=== PATIENT | male | born 1950 | race Caucasian/White ===

== ENCOUNTER 2019-10-18 10:08 | Inpatient (IN) | payer OTHER, MEDICAID, SELFPAY ==
[~2019-10-18] VITALS: Ht 177.8 cm; Wt 85.7 kg
[2019-10-18 10:08] VITALS: BP_SYST 122
[2019-10-18] MEDS ORDERED: NACL 0.9% 2,100 ML IV ONE (10:21)
[2019-10-18] MEDS ORDERED: AZITHROMYCIN 500 MG in NS 250 ML IV ONE (10:30)
[2019-10-18] MEDS ORDERED: DEXAMETHASONE SOD PHOSPHATE 10 MG/ML VIAL IVP ONE (10:30)
[2019-10-18] MEDS ORDERED: VANCOMYCIN HCL 1,000 MG in NS 250 ML IV ONE (10:30)
[2019-10-18] MEDS ORDERED: cefTRIAXone 1 GM IVPB PREMIX 50 ML IV ONE (10:30)
[2019-10-18] MEDS ORDERED: VANCOMYCIN HCL 1000 MG/VIAL IV ONE (11:02)
[2019-10-18 11:03] LABS: BASOPHILS % (AUTO) 0.4 % (0.0-2.0); HEMATOCRIT 47.6 % (36-54); HEMOGLOBIN 15.6 g/dL (14.0-18.0); LYMPHOCYTES # (AUTO) 0.6 K/uL (1.0-5.5); LYMPHOCYTES % (AUTO) 10.9 % (20.5-51.5); MEAN CORPUSCULAR HEMOGLOBIN 30 pg (27-31); MEAN CORPUSCULAR HGB CONC 33 % (32-36); MEAN CORPUSCULAR VOLUME 90 fL (79.0-98.0); MONOCYTES # (AUTO) 0.7 K/uL (0.0-1.0); MONOCYTES % (AUTO) 12.8 % (1.7-9.3); NEUTROPHILS # (AUTO) 4.1 K/uL (1.8-7.7); NEUTROPHILS % (AUTO) 75.9 % (40.0-70.0); PLATELET COUNT (AUTO) 116 K/uL (130-430); RED BLOOD CELL COUNT(AUTO) 5.27 MIL/uL (4.2-6.2); RED CELL DISTRIBUTION WIDTH 15.2 % (9.0-15.0); WHITE BLOOD COUNT (AUTO) 5.4 K/uL (4.8-10.8)
[2019-10-18] MEDS ORDERED: AZITHROMYCIN 500 MG/VIAL (ZITHROMAX) IV ONE (11:03)
[2019-10-18 11:09] LABS: CALCIUM 9.3 mg/dL (8.4-11.0); CREATININE 3.04 mg/dL (0.55-1.30); POTASSIUM 4.1 mmol/L (3.5-5.1)
[2019-10-18 11:24] LABS: ALBUMIN 2.8 g/dL (3.4-4.8); TOTAL BILIRUBIN 0.6 mg/dL (0.0-1.0)
[2019-10-18 11:47] LABS: BILIRUBIN,URINE NEGATIVE (NEGATIVE); BLOOD, URINE NEGATIVE (NEGATIVE); CLARITY/URINE SL CLOUDY (CLEAR); COLOR,URINE YELLOW (YELLOW); GLUCOSE,URINE NEGATIVE (NEGATIVE); KETONES,URINE NEGATIVE (NEGATIVE); LEUKOCYTE ESTERASE ,URINE NEGATIVE (NEGATIVE); NITRITE, URINE NEGATIVE (NEGATIVE); PROTEIN URINE 2+ (NEGATIVE); UROBILINOGEN,URINE 0.2 (0.2-1.0)
[2019-10-18 12:01] LABS: BACTERIA,URINE None Seen /HPF (None Seen); RBC,URINE 0-3 /HPF (0-3); WBC,URINE 0-3 /HPF (0-3)
[2019-10-18 12:02] LABS: CALCIUM OXALATE CRYSTALS,UR None Seen /HPF (None Seen); CALCIUM PHOSPHATE CRYSTALS,UR None Seen /HPF (None Seen); TRICHOMONAS,URINE None Seen /HPF (None Seen); YEAST,URINE None Seen /HPF (None Seen)
[2019-10-18] MEDS ORDERED: ENOXAPARIN SODIUM 80 MG/0.8 ML SYRINGE SUBCUT ONE (13:15)
[2019-10-18] MEDS ORDERED: LORazepam 2 MG/ML VIAL ONE (14:07)
[2019-10-18] MEDS ORDERED: LORazepam 2 MG/ML VIAL IVP ONE (15:00)
[2019-10-18] MEDS: NACL 0.9% 1,000 ML IV SCH (17:03)
[2019-10-18] MEDS ORDERED: DDA.1 PO (17:07)
[2019-10-18] MEDS ORDERED: TERA5CAP4 PO (17:07)
[2019-10-18] MEDS ORDERED: LOSA50TA3 PO (17:07)
[2019-10-18] MEDS ORDERED: QUET50TA PO (17:07)
[2019-10-18] MEDS ORDERED: DIVA-74 PO (17:07)
[2019-10-18] MEDS ORDERED: HYDR12.585 PO (17:07)
[2019-10-18] MEDS ORDERED: SER100 PO (17:07)
[2019-10-18] MEDS ORDERED: DIVA500T2 PO (17:07)
[2019-10-18] MEDS ORDERED: FINA5TAB3 PO (17:07)
[2019-10-18] MEDS ORDERED: NOR10 PO (17:07)
[2019-10-18] MEDS ORDERED: QUET300T2 PO (17:07)
[2019-10-18] MEDS ORDERED: ACETAMINOPHEN 650 MG SUPP.RECT RC PRN ×2 (17:15→17:30)
[2019-10-18] MEDS ORDERED: LORazepam 2 MG/ML VIAL IM PRN (17:30)
[2019-10-18] MEDS: PIPERACILLIN/TAZO 2.25G/DEX-IS 50 ML IV SCH (18:00)
[2019-10-18] MEDS: FAMOTIDINE PF 20 MG/2 ML VIAL IVP SCH (19:20)
[2019-10-18] MEDS ORDERED: ALBUTEROL MDI INHALATION 8 GM INH INH SCH (21:00)
[2019-10-19] MEDS: NACL 0.9% 1,000 ML IV SCH (02:54)
[2019-10-19 04:34] LABS: BASOPHILS % (AUTO) 0.4 % (0.0-2.0); HEMATOCRIT 45.5 % (36-54); HEMOGLOBIN 14.7 g/dL (14.0-18.0); LYMPHOCYTES # (AUTO) 0.7 K/uL (1.0-5.5); LYMPHOCYTES % (AUTO) 11.8 % (20.5-51.5); MEAN CORPUSCULAR HEMOGLOBIN 30 pg (27-31); MEAN CORPUSCULAR HGB CONC 32 % (32-36); MEAN CORPUSCULAR VOLUME 92 fL (79.0-98.0); MONOCYTES # (AUTO) 0.7 K/uL (0.0-1.0); MONOCYTES % (AUTO) 12.2 % (1.7-9.3); NEUTROPHILS # (AUTO) 4.2 K/uL (1.8-7.7); NEUTROPHILS % (AUTO) 75.6 % (40.0-70.0); PLATELET COUNT (AUTO) 112 K/uL (130-430); RED BLOOD CELL COUNT(AUTO) 4.96 MIL/uL (4.2-6.2); RED CELL DISTRIBUTION WIDTH 15.3 % (9.0-15.0); WHITE BLOOD COUNT (AUTO) 5.6 K/uL (4.8-10.8)
[2019-10-19 05:05] LABS: ALBUMIN 2.4 g/dL (3.4-4.8); C-REACTIVE PROTEIN QUANT 7.8 mg/dL (0-0.5); CALCIUM 8.9 mg/dL (8.4-11.0); CREATININE 2.93 mg/dL (0.55-1.30); POTASSIUM 4.4 mmol/L (3.5-5.1); THYROID STIMULATING HORMONE 0.8 uIu/mL (0.34-4.82); TOTAL BILIRUBIN 0.4 mg/dL (0.0-1.0)
[2019-10-19] MEDS: PIPERACILLIN/TAZO 2.25G/DEX-IS 50 ML IV SCH ×4 (05:55→20:00)
[2019-10-19] MEDS ORDERED: PIPERACILLIN/TAZOBACTAM 3.375 GM/VIAL (ZOSYN) IV ONE (06:25)
[2019-10-19] MEDS ORDERED: LORazepam 2 MG/ML VIAL ONE (06:41)
[2019-10-19] MEDS ORDERED: 0.45% NACL 1,000 ML IV SCH (07:12)
[2019-10-19] MEDS ORDERED: DEXAMETHASONE SOD PHOSPHATE 4 MG/ML VIAL IVP SCH (09:00)
[2019-10-19] MEDS: AZITHROMYCIN 500 MG in NS 250 ML IV SCH (12:37)
[2019-10-19] MEDS ORDERED: D5W 1,000 ML IV SCH (15:58)
[2019-10-19] MEDS ORDERED: D5W 1,000 ML IV PRN (16:45)
[2019-10-19] MEDS ORDERED: GLUCOSE 15 GM GEL (in 37.5 GM TUBE) PO PRN (16:45)
[2019-10-19] MEDS ORDERED: DEXTROSE 50%-WATER 50 ML DISP.SYRIN IVP PRN (16:45)
[2019-10-19] MEDS: D5W 1,000 ML IV SCH (20:00)
[2019-10-19] MEDS ORDERED: PROPOFOL DRIP 100 ML IV ONE (20:03)
[2019-10-19] MEDS: FAMOTIDINE PF 20 MG/2 ML VIAL IVP SCH (20:30)
[2019-10-19 21:40] VITALS: BP_SYST 138
[2019-10-19 21:43] VITALS: BP_SYST 138
[2019-10-19 22:00] VITALS: BP_SYST 128; BP_SYST 136
[2019-10-19] MEDS: DESMOPRESSIN ACETATE 4 MCG/ML AMP IVP SCH (22:29)
[2019-10-19] MEDS ORDERED: DESMOPRESSIN ACETATE 4 MCG/ML AMP ONE (22:32)
[2019-10-19 23:00] VITALS: BP_SYST 136
[2019-10-19 23:13] VITALS: BP_SYST 119
[2019-10-20] VITALS (33 sets, daily range): BP systolic 92–130
[2019-10-20] MEDS: PIPERACILLIN/TAZO 2.25G/DEX-IS 50 ML IV SCH ×4 (00:01→17:40)
[2019-10-20] MEDS: INSULIN LISPRO SLIDING SCALE 100 UNITS/ML VIAL (humaLOG) SUBCUT PRN ×2 (00:43→17:38)
[2019-10-20] MEDS: D5W 1,000 ML IV SCH ×3 (03:38→21:56)
[2019-10-20 06:37] LABS: BASOPHILS % (AUTO) 0.1 % (0.0-2.0); HEMATOCRIT 42.3 % (36-54); HEMOGLOBIN 13.6 g/dL (14.0-18.0); LYMPHOCYTES # (AUTO) 0.8 K/uL (1.0-5.5); LYMPHOCYTES % (AUTO) 11.2 % (20.5-51.5); MEAN CORPUSCULAR HEMOGLOBIN 30 pg (27-31); MEAN CORPUSCULAR HGB CONC 32 % (32-36); MEAN CORPUSCULAR VOLUME 92 fL (79.0-98.0); MONOCYTES # (AUTO) 0.5 K/uL (0.0-1.0); MONOCYTES % (AUTO) 6.7 % (1.7-9.3); NEUTROPHILS # (AUTO) 5.5 K/uL (1.8-7.7); PLATELET COUNT (AUTO) 138 K/uL (130-430); RED BLOOD CELL COUNT(AUTO) 4.61 MIL/uL (4.2-6.2); RED CELL DISTRIBUTION WIDTH 15.7 % (9.0-15.0); WHITE BLOOD COUNT (AUTO) 6.8 K/uL (4.8-10.8)
[2019-10-20 06:51] LABS: ALBUMIN 2.1 g/dL (3.4-4.8); CREATININE 3.53 mg/dL (0.55-1.30); PHOSPHORUS 3.9 mg/dL (2.7-4.5); TOTAL BILIRUBIN 0.8 mg/dL (0.0-1.0)
[2019-10-20 07:25] LABS: POTASSIUM 4.1 mmol/L (3.5-5.1)
[2019-10-20 08:19] LABS: C-REACTIVE PROTEIN QUANT 13.8 mg/dL (0-0.5)
[2019-10-20] MEDS: DEXAMETHASONE SOD PHOSPHATE 10 MG/ML VIAL IVP SCH (08:41)
[2019-10-20] MEDS: AZITHROMYCIN 500 MG in NS 250 ML IV SCH (08:41)
[2019-10-20] MEDS: DESMOPRESSIN ACETATE 4 MCG/ML AMP IVP SCH ×2 (08:54→21:55)
[2019-10-20 09:01] LABS: ERYTHROCYTE SEDIMENTATION RATE 66 MM/HR (0-15)
[2019-10-20] MEDS ORDERED: HEPARIN SODIUM,PORCINE 5000 UNITS/ML VIAL SUBCUT ONE (09:45)
[2019-10-20] MEDS ORDERED: ROCURONIUM BROMIDE 10 MG/ML (ZEMURON) IV ONE (09:54)
[2019-10-20] MEDS ORDERED: ETOMIDATE 20 MG/ 10 ML VIAL (AMIDATE) IVP ONE (09:54)
[2019-10-20] MEDS: PROPOFOL DRIP 100 ML IV PRN (14:54)
[2019-10-20] MEDS: FAMOTIDINE PF 20 MG/2 ML VIAL IVP SCH (17:40)
[2019-10-20] MEDS ORDERED: HYDROXYCHLOROQUINE SULFATE 200 MG TABLET PO ONE (18:00)
[2019-10-20] MEDS: HEPARIN SODIUM,PORCINE 5000 UNITS/ML VIAL SUBCUT SCH (22:25)
[2019-10-21] VITALS (33 sets, daily range): BP systolic 91–149
[2019-10-21] MEDS: PIPERACILLIN/TAZO 2.25G/DEX-IS 50 ML IV SCH ×5 (01:30→23:49)
[2019-10-21] MEDS: INSULIN LISPRO SLIDING SCALE 100 UNITS/ML VIAL (humaLOG) SUBCUT PRN ×4 (01:35→23:55)
[2019-10-21 06:44] LABS: BASOPHILS % (AUTO) 0.2 % (0.0-2.0); HEMATOCRIT 44.1 % (36-54); HEMOGLOBIN 14.6 g/dL (14.0-18.0); LYMPHOCYTES # (AUTO) 0.9 K/uL (1.0-5.5); LYMPHOCYTES % (AUTO) 13.1 % (20.5-51.5); MEAN CORPUSCULAR HEMOGLOBIN 30 pg (27-31); MEAN CORPUSCULAR HGB CONC 33 % (32-36); MEAN CORPUSCULAR VOLUME 91 fL (79.0-98.0); MONOCYTES # (AUTO) 0.4 K/uL (0.0-1.0); MONOCYTES % (AUTO) 5.9 % (1.7-9.3); NEUTROPHILS # (AUTO) 5.2 K/uL (1.8-7.7); NEUTROPHILS % (AUTO) 80.8 % (40.0-70.0); PLATELET COUNT (AUTO) 148 K/uL (130-430); RED BLOOD CELL COUNT(AUTO) 4.84 MIL/uL (4.2-6.2); RED CELL DISTRIBUTION WIDTH 15.6 % (9.0-15.0); WHITE BLOOD COUNT (AUTO) 6.5 K/uL (4.8-10.8)
[2019-10-21] MEDS: D5W 1,000 ML IV SCH ×3 (07:00→22:05)
[2019-10-21 07:01] LABS: CALCIUM 9.3 mg/dL (8.4-11.0); CREATININE 3.08 mg/dL (0.55-1.30); POTASSIUM 3.5 mmol/L (3.5-5.1); TOTAL BILIRUBIN 0.8 mg/dL (0.0-1.0)
[2019-10-21 07:21] LABS: C-REACTIVE PROTEIN QUANT 16.9 mg/dL (0-0.5)
[2019-10-21] MEDS: CHOLECALCIFEROL (VITAMIN D3) 2,000 UNIT TABLET PO SCH (08:01)
[2019-10-21] MEDS: HEPARIN SODIUM,PORCINE 5000 UNITS/ML VIAL SUBCUT SCH ×2 (08:01→22:08)
[2019-10-21] MEDS: ASCORBIC ACID 500 MG TABLET PO SCH (08:01)
[2019-10-21] MEDS: DESMOPRESSIN ACETATE 4 MCG/ML AMP IVP SCH ×3 (08:03→23:48)
[2019-10-21] MEDS: DEXAMETHASONE SOD PHOSPHATE 10 MG/ML VIAL IVP SCH (08:04)
[2019-10-21] MEDS: HYDROXYCHLOROQUINE SULFATE 200 MG TABLET PO SCH ×2 (08:19→22:04)
[2019-10-21] MEDS: PROPOFOL DRIP 100 ML IV PRN (15:08)
[2019-10-21] MEDS: FAMOTIDINE PF 20 MG/2 ML VIAL IVP SCH (17:49)
[2019-10-22] VITALS (38 sets, daily range): BP systolic 90–148
[2019-10-22] MEDS: D5W 1,000 ML IV SCH ×3 (05:31→21:56)
[2019-10-22] MEDS: PROPOFOL DRIP 100 ML IV PRN ×3 (05:36→14:58)
[2019-10-22] MEDS: PIPERACILLIN/TAZO 2.25G/DEX-IS 50 ML IV SCH ×3 (05:39→17:50)
[2019-10-22] MEDS: INSULIN LISPRO SLIDING SCALE 100 UNITS/ML VIAL (humaLOG) SUBCUT PRN ×2 (06:39→18:26)
[2019-10-22 06:42] LABS: BASOPHILS % (AUTO) 0.2 % (0.0-2.0); EOSINOPHILS % (AUTO) 0.7 % (0.0-4.0); HEMATOCRIT 39.7 % (36-54); HEMOGLOBIN 12.8 g/dL (14.0-18.0); LYMPHOCYTES # (AUTO) 0.9 K/uL (1.0-5.5); LYMPHOCYTES % (AUTO) 17.2 % (20.5-51.5); MEAN CORPUSCULAR HEMOGLOBIN 29 pg (27-31); MEAN CORPUSCULAR HGB CONC 32 % (32-36); MEAN CORPUSCULAR VOLUME 91 fL (79.0-98.0); MONOCYTES # (AUTO) 0.5 K/uL (0.0-1.0); MONOCYTES % (AUTO) 9.8 % (1.7-9.3); NEUTROPHILS # (AUTO) 3.8 K/uL (1.8-7.7); NEUTROPHILS % (AUTO) 72.1 % (40.0-70.0); PLATELET COUNT (AUTO) 160 K/uL (130-430); RED BLOOD CELL COUNT(AUTO) 4.35 MIL/uL (4.2-6.2); RED CELL DISTRIBUTION WIDTH 15.9 % (9.0-15.0); WHITE BLOOD COUNT (AUTO) 5.2 K/uL (4.8-10.8)
[2019-10-22 07:07] LABS: ALBUMIN 1.8 g/dL (3.4-4.8); CREATININE 2.7 mg/dL (0.55-1.30); TOTAL BILIRUBIN 0.6 mg/dL (0.0-1.0)
[2019-10-22 07:11] LABS: POTASSIUM 2.8 mmol/L (3.5-5.1)
[2019-10-22] MEDS ORDERED: POTASSIUM CHLORIDE 40 MEQ, LIDOCAINE JECT 2% PF 100 MG 50 MG in NS 250 ML IV ONE (08:30)
[2019-10-22 08:31] LABS: C-REACTIVE PROTEIN QUANT 12.3 mg/dL (0-0.5)
[2019-10-22] MEDS: CHOLECALCIFEROL (VITAMIN D3) 2,000 UNIT TABLET PO SCH (08:49)
[2019-10-22] MEDS: ASCORBIC ACID 500 MG TABLET PO SCH (08:49)
[2019-10-22] MEDS: HYDROXYCHLOROQUINE SULFATE 200 MG TABLET PO SCH ×2 (08:49→21:19)
[2019-10-22] MEDS: DEXAMETHASONE SOD PHOSPHATE 10 MG/ML VIAL IVP SCH (08:50)
[2019-10-22] MEDS: HEPARIN SODIUM,PORCINE 5000 UNITS/ML VIAL SUBCUT SCH ×2 (08:52→21:33)
[2019-10-22] MEDS: DESMOPRESSIN ACETATE 4 MCG/ML AMP IVP SCH ×2 (11:31→21:19)
[2019-10-22] MEDS: MIDAZOLAM HCL IN 0.9 % NACL/PF 50 ML IV PRN (17:53)
[2019-10-22] MEDS: FAMOTIDINE PF 20 MG/2 ML VIAL IVP SCH (17:53)
[2019-10-22] MEDS ORDERED: DESMOPRESSIN ACETATE 4 MCG/ML AMP ONE (21:13)
[2019-10-23] VITALS (36 sets, daily range): BP systolic 101–158
[2019-10-23] MEDS: PIPERACILLIN/TAZO 2.25G/DEX-IS 50 ML IV SCH ×4 (00:31→17:54)
[2019-10-23] MEDS: MIDAZOLAM HCL IN 0.9 % NACL/PF 50 ML IV PRN ×3 (01:10→21:24)
[2019-10-23] MEDS: INSULIN LISPRO SLIDING SCALE 100 UNITS/ML VIAL (humaLOG) SUBCUT PRN ×5 (01:11→18:36)
[2019-10-23 06:27] LABS: BASOPHILS % (AUTO) 0.3 % (0.0-2.0); EOSINOPHILS # (AUTO) 0.1 K/uL (0.0-0.4); EOSINOPHILS % (AUTO) 1.2 % (0.0-4.0); HEMATOCRIT 38.2 % (36-54); HEMOGLOBIN 12.4 g/dL (14.0-18.0); LYMPHOCYTES # (AUTO) 0.6 K/uL (1.0-5.5); MEAN CORPUSCULAR HEMOGLOBIN 29 pg (27-31); MEAN CORPUSCULAR HGB CONC 32 % (32-36); MEAN CORPUSCULAR VOLUME 91 fL (79.0-98.0); MONOCYTES # (AUTO) 0.5 K/uL (0.0-1.0); MONOCYTES % (AUTO) 11.7 % (1.7-9.3); NEUTROPHILS % (AUTO) 71.8 % (40.0-70.0); PLATELET COUNT (AUTO) 152 K/uL (130-430); RED CELL DISTRIBUTION WIDTH 15.4 % (9.0-15.0); WHITE BLOOD COUNT (AUTO) 4.2 K/uL (4.8-10.8)
[2019-10-23] MEDS: PROPOFOL DRIP 100 ML IV PRN ×2 (06:59→17:49)
[2019-10-23 08:19] LABS: ALBUMIN 1.8 g/dL (3.4-4.8); CALCIUM 8.9 mg/dL (8.4-11.0); CREATININE 2.32 mg/dL (0.55-1.30); POTASSIUM 3.5 mmol/L (3.5-5.1); TOTAL BILIRUBIN 0.6 mg/dL (0.0-1.0)
[2019-10-23] MEDS: D5W 1,000 ML IV SCH ×3 (08:30→17:50)
[2019-10-23] MEDS: CHOLECALCIFEROL (VITAMIN D3) 2,000 UNIT TABLET PO SCH (08:31)
[2019-10-23] MEDS: ASCORBIC ACID 500 MG TABLET PO SCH (08:31)
[2019-10-23] MEDS: DESMOPRESSIN ACETATE 4 MCG/ML AMP IVP SCH ×2 (08:32→21:14)
[2019-10-23] MEDS: HEPARIN SODIUM,PORCINE 5000 UNITS/ML VIAL SUBCUT SCH ×2 (08:37→21:15)
[2019-10-23] MEDS: HYDROXYCHLOROQUINE SULFATE 200 MG TABLET PO SCH ×2 (08:37→21:13)
[2019-10-23] MEDS: DEXAMETHASONE SOD PHOSPHATE 10 MG/ML VIAL IVP SCH (08:38)
[2019-10-23 10:45] LABS: C-REACTIVE PROTEIN QUANT 12.4 mg/dL (0-0.5)
[2019-10-23] MEDS: FAMOTIDINE PF 20 MG/2 ML VIAL IVP SCH (17:54)
[2019-10-23] MEDS ORDERED: MIDAZOLAM HCL IN 0.9 % NACL/PF 50 ML IV ONE (21:41)
[2019-10-24] VITALS (33 sets, daily range): BP systolic 72–142
[2019-10-24] MEDS: PIPERACILLIN/TAZO 2.25G/DEX-IS 50 ML IV SCH ×5 (00:38→23:47)
[2019-10-24] MEDS: INSULIN LISPRO SLIDING SCALE 100 UNITS/ML VIAL (humaLOG) SUBCUT PRN ×4 (00:59→18:30)
[2019-10-24] MEDS: MIDAZOLAM HCL IN 0.9 % NACL/PF 50 ML IV PRN ×3 (04:50→16:04)
[2019-10-24] MEDS: D5W 1,000 ML IV SCH (04:51)
[2019-10-24] MEDS: PROPOFOL DRIP 100 ML IV PRN ×3 (04:51→18:03)
[2019-10-24 07:07] LABS: C-REACTIVE PROTEIN QUANT 9.1 mg/dL (0-0.5); CALCIUM 8.8 mg/dL (8.4-11.0); CREATININE 2.14 mg/dL (0.55-1.30); POTASSIUM 3.8 mmol/L (3.5-5.1)
[2019-10-24 07:46] LABS: BASOPHILS % (AUTO) 0.3 % (0.0-2.0); EOSINOPHILS # (AUTO) 0.1 K/uL (0.0-0.4); EOSINOPHILS % (AUTO) 2.4 % (0.0-4.0); HEMATOCRIT 35.3 % (36-54); HEMOGLOBIN 11.5 g/dL (14.0-18.0); LYMPHOCYTES # (AUTO) 0.7 K/uL (1.0-5.5); LYMPHOCYTES % (AUTO) 15.4 % (20.5-51.5); MEAN CORPUSCULAR HEMOGLOBIN 30 pg (27-31); MEAN CORPUSCULAR HGB CONC 33 % (32-36); MEAN CORPUSCULAR VOLUME 90 fL (79.0-98.0); MONOCYTES # (AUTO) 0.4 K/uL (0.0-1.0); MONOCYTES % (AUTO) 8.5 % (1.7-9.3); NEUTROPHILS # (AUTO) 3.4 K/uL (1.8-7.7); NEUTROPHILS % (AUTO) 73.4 % (40.0-70.0); PLATELET COUNT (AUTO) 153 K/uL (130-430); RED BLOOD CELL COUNT(AUTO) 3.91 MIL/uL (4.2-6.2); RED CELL DISTRIBUTION WIDTH 15.6 % (9.0-15.0); WHITE BLOOD COUNT (AUTO) 4.7 K/uL (4.8-10.8)
[2019-10-24] MEDS: ASCORBIC ACID 500 MG TABLET PO SCH (08:15)
[2019-10-24] MEDS: CHOLECALCIFEROL (VITAMIN D3) 2,000 UNIT TABLET PO SCH (08:16)
[2019-10-24] MEDS: HYDROXYCHLOROQUINE SULFATE 200 MG TABLET PO SCH ×2 (08:17→21:10)
[2019-10-24] MEDS: DEXAMETHASONE SOD PHOSPHATE 10 MG/ML VIAL IVP SCH (08:17)
[2019-10-24] MEDS: DESMOPRESSIN ACETATE 4 MCG/ML AMP IVP SCH ×2 (08:18→21:06)
[2019-10-24] MEDS: HEPARIN SODIUM,PORCINE 5000 UNITS/ML VIAL SUBCUT SCH ×2 (08:19→21:07)
[2019-10-24] MEDS ORDERED: NOREPINEPHRINE BITARTRATE 4 MG in NS 246 ML IV PRN (09:30)
[2019-10-24] MEDS ORDERED: INSULIN GLARGINE 100 UNITS/ML 10 ML VIAL SUBCUT ONE (09:45)
[2019-10-24] MEDS ORDERED: INSULIN NPH 100 UNITS/ML 10 ML VIAL SUBCUT ONE (09:45)
[2019-10-24] MEDS ORDERED: NOREPINEPHRINE 4 MG/4 ML VIAL IV ONE ×2 (09:47)
[2019-10-24] MEDS: FAMOTIDINE PF 20 MG/2 ML VIAL IVP SCH (17:52)
[2019-10-24] MEDS ORDERED: INSULIN NPH 100 UNITS/ML 10 ML VIAL SUBCUT SCH (21:00)
[2019-10-25] VITALS (36 sets, daily range): BP systolic 96–168
[2019-10-25] MEDS: MIDAZOLAM HCL IN 0.9 % NACL/PF 50 ML IV PRN ×3 (03:11→16:15)
[2019-10-25 06:39] LABS: BASOPHILS % (AUTO) 0.3 % (0.0-2.0); EOSINOPHILS # (AUTO) 0.2 K/uL (0.0-0.4); EOSINOPHILS % (AUTO) 2.6 % (0.0-4.0); HEMATOCRIT 36.6 % (36-54); HEMOGLOBIN 11.9 g/dL (14.0-18.0); LYMPHOCYTES # (AUTO) 1.5 K/uL (1.0-5.5); LYMPHOCYTES % (AUTO) 18.1 % (20.5-51.5); MEAN CORPUSCULAR HEMOGLOBIN 30 pg (27-31); MEAN CORPUSCULAR HGB CONC 32 % (32-36); MEAN CORPUSCULAR VOLUME 91 fL (79.0-98.0); MONOCYTES # (AUTO) 0.7 K/uL (0.0-1.0); MONOCYTES % (AUTO) 8.6 % (1.7-9.3); NEUTROPHILS # (AUTO) 5.9 K/uL (1.8-7.7); NEUTROPHILS % (AUTO) 70.4 % (40.0-70.0); PLATELET COUNT (AUTO) 189 K/uL (130-430); RED BLOOD CELL COUNT(AUTO) 4.01 MIL/uL (4.2-6.2); RED CELL DISTRIBUTION WIDTH 15.7 % (9.0-15.0); WHITE BLOOD COUNT (AUTO) 8.4 K/uL (4.8-10.8)
[2019-10-25] MEDS: PROPOFOL DRIP 100 ML IV PRN ×3 (06:49→16:08)
[2019-10-25 06:56] LABS: ALBUMIN 1.8 g/dL (3.4-4.8); C-REACTIVE PROTEIN QUANT 9.1 mg/dL (0-0.5); CALCIUM 9.2 mg/dL (8.4-11.0); CREATININE 2.6 mg/dL (0.55-1.30); POTASSIUM 4.2 mmol/L (3.5-5.1); TOTAL BILIRUBIN 0.5 mg/dL (0.0-1.0)
[2019-10-25] MEDS: DESMOPRESSIN ACETATE 4 MCG/ML AMP IVP SCH ×2 (08:49→21:17)
[2019-10-25] MEDS: DEXAMETHASONE SOD PHOSPHATE 10 MG/ML VIAL IVP SCH (08:49)
[2019-10-25] MEDS: ASCORBIC ACID 500 MG TABLET PO SCH (08:50)
[2019-10-25] MEDS: HYDROXYCHLOROQUINE SULFATE 200 MG TABLET PO SCH ×2 (08:50→21:18)
[2019-10-25] MEDS: CHOLECALCIFEROL (VITAMIN D3) 2,000 UNIT TABLET PO SCH (08:50)
[2019-10-25] MEDS: HEPARIN SODIUM,PORCINE 5000 UNITS/ML VIAL SUBCUT SCH ×2 (08:51→21:20)
[2019-10-25] MEDS: ALBUTEROL MDI INHALATION 8 GM INH INH SCH ×2 (11:00→15:00)
[2019-10-25] MEDS: PIPERACILLIN/TAZO 2.25G/DEX-IS 50 ML IV SCH ×3 (11:38→23:46)
[2019-10-25] MEDS: INSULIN LISPRO SLIDING SCALE 100 UNITS/ML VIAL (humaLOG) SUBCUT PRN ×2 (11:39→18:15)
[2019-10-25] MEDS: FAMOTIDINE PF 20 MG/2 ML VIAL IVP SCH (18:04)
[2019-10-26] VITALS (38 sets, daily range): BP systolic 105–149
[2019-10-26] MEDS: PROPOFOL DRIP 100 ML IV PRN ×3 (01:22→16:29)
[2019-10-26] MEDS: MIDAZOLAM HCL IN 0.9 % NACL/PF 50 ML IV PRN ×2 (03:23→13:28)
[2019-10-26 05:21] LABS: BASOPHILS % (AUTO) 0.4 % (0.0-2.0); EOSINOPHILS # (AUTO) 0.2 K/uL (0.0-0.4); EOSINOPHILS % (AUTO) 2.7 % (0.0-4.0); HEMATOCRIT 33.7 % (36-54); HEMOGLOBIN 11.1 g/dL (14.0-18.0); MEAN CORPUSCULAR HEMOGLOBIN 30 pg (27-31); MEAN CORPUSCULAR HGB CONC 33 % (32-36); MEAN CORPUSCULAR VOLUME 91 fL (79.0-98.0); MONOCYTES # (AUTO) 0.7 K/uL (0.0-1.0); MONOCYTES % (AUTO) 9.2 % (1.7-9.3); NEUTROPHILS # (AUTO) 5.4 K/uL (1.8-7.7); NEUTROPHILS % (AUTO) 73.7 % (40.0-70.0); PLATELET COUNT (AUTO) 159 K/uL (130-430); RED BLOOD CELL COUNT(AUTO) 3.72 MIL/uL (4.2-6.2); RED CELL DISTRIBUTION WIDTH 15.4 % (9.0-15.0); WHITE BLOOD COUNT (AUTO) 7.3 K/uL (4.8-10.8)
[2019-10-26 05:41] LABS: ALBUMIN 1.7 g/dL (3.4-4.8); C-REACTIVE PROTEIN QUANT 9.9 mg/dL (0-0.5); CALCIUM 9.1 mg/dL (8.4-11.0); CREATININE 2.56 mg/dL (0.55-1.30); POTASSIUM 4.1 mmol/L (3.5-5.1); TOTAL BILIRUBIN 0.5 mg/dL (0.0-1.0)
[2019-10-26] MEDS: PIPERACILLIN/TAZO 2.25G/DEX-IS 50 ML IV SCH ×3 (06:25→18:13)
[2019-10-26] MEDS: INSULIN LISPRO SLIDING SCALE 100 UNITS/ML VIAL (humaLOG) SUBCUT PRN ×3 (06:38→18:26)
[2019-10-26] MEDS: ALBUTEROL MDI INHALATION 8 GM INH INH SCH ×2 (07:34→11:40)
[2019-10-26] MEDS: DESMOPRESSIN ACETATE 4 MCG/ML AMP IVP SCH ×2 (07:50→20:16)
[2019-10-26] MEDS: ASCORBIC ACID 500 MG TABLET PO SCH (07:51)
[2019-10-26] MEDS: HYDROXYCHLOROQUINE SULFATE 200 MG TABLET PO SCH ×2 (07:51→20:16)
[2019-10-26] MEDS: DEXAMETHASONE SOD PHOSPHATE 10 MG/ML VIAL IVP SCH (07:51)
[2019-10-26] MEDS: HEPARIN SODIUM,PORCINE 5000 UNITS/ML VIAL SUBCUT SCH ×2 (07:52→20:15)
[2019-10-26] MEDS: CHOLECALCIFEROL (VITAMIN D3) 2,000 UNIT TABLET PO SCH (07:52)
[2019-10-26] MEDS: FAMOTIDINE PF 20 MG/2 ML VIAL IVP SCH (18:13)
[2019-10-26] MEDS ORDERED: DESMOPRESSIN ACETATE 4 MCG/ML AMP ONE (20:27)
[2019-10-27] VITALS (36 sets, daily range): BP systolic 125–202
[2019-10-27] MEDS: PIPERACILLIN/TAZO 2.25G/DEX-IS 50 ML IV SCH ×4 (00:01→17:34)
[2019-10-27] MEDS: INSULIN LISPRO SLIDING SCALE 100 UNITS/ML VIAL (humaLOG) SUBCUT PRN ×4 (00:43→17:35)
[2019-10-27] MEDS: MIDAZOLAM HCL IN 0.9 % NACL/PF 50 ML IV PRN ×2 (05:35→17:36)
[2019-10-27 05:51] LABS: BASOPHILS % (AUTO) 0.4 % (0.0-2.0); EOSINOPHILS # (AUTO) 0.3 K/uL (0.0-0.4); EOSINOPHILS % (AUTO) 2.4 % (0.0-4.0); HEMATOCRIT 36.6 % (36-54); HEMOGLOBIN 11.8 g/dL (14.0-18.0); LYMPHOCYTES # (AUTO) 1.2 K/uL (1.0-5.5); LYMPHOCYTES % (AUTO) 11.7 % (20.5-51.5); MEAN CORPUSCULAR HEMOGLOBIN 29 pg (27-31); MEAN CORPUSCULAR HGB CONC 32 % (32-36); MEAN CORPUSCULAR VOLUME 92 fL (79.0-98.0); MONOCYTES # (AUTO) 0.8 K/uL (0.0-1.0); MONOCYTES % (AUTO) 7.5 % (1.7-9.3); NEUTROPHILS # (AUTO) 8.1 K/uL (1.8-7.7); PLATELET COUNT (AUTO) 160 K/uL (130-430); RED CELL DISTRIBUTION WIDTH 15.4 % (9.0-15.0); WHITE BLOOD COUNT (AUTO) 10.4 K/uL (4.8-10.8)
[2019-10-27 06:31] LABS: ALBUMIN 1.8 g/dL (3.4-4.8); C-REACTIVE PROTEIN QUANT 6.4 mg/dL (0-0.5); CALCIUM 9.7 mg/dL (8.4-11.0); CREATININE 2.11 mg/dL (0.55-1.30); POTASSIUM 3.8 mmol/L (3.5-5.1); TOTAL BILIRUBIN 0.5 mg/dL (0.0-1.0)
[2019-10-27] MEDS: ALBUTEROL MDI INHALATION 8 GM INH INH SCH ×4 (07:00→19:00)
[2019-10-27] MEDS: CHOLECALCIFEROL (VITAMIN D3) 2,000 UNIT TABLET PO SCH (08:18)
[2019-10-27] MEDS: DESMOPRESSIN ACETATE 4 MCG/ML AMP IVP SCH ×2 (08:18→21:54)
[2019-10-27] MEDS: HYDROXYCHLOROQUINE SULFATE 200 MG TABLET PO SCH ×2 (08:18→21:54)
[2019-10-27] MEDS: ASCORBIC ACID 500 MG TABLET PO SCH (08:18)
[2019-10-27] MEDS: DEXAMETHASONE SOD PHOSPHATE 10 MG/ML VIAL IVP SCH (08:18)
[2019-10-27] MEDS: HEPARIN SODIUM,PORCINE 5000 UNITS/ML VIAL SUBCUT SCH ×2 (08:19→22:01)
[2019-10-27] MEDS: PROPOFOL DRIP 100 ML IV PRN (08:23)
[2019-10-27] MEDS ORDERED: BISACODYL 10 MG/SUPPOSITORY RC PRN (11:00)
[2019-10-27] MEDS: FAMOTIDINE PF 20 MG/2 ML VIAL IVP SCH (17:35)
[2019-10-27] MEDS: SENNOSIDES/DOCUSATE SODIUM 1 TAB TABLET(SENOKOT-S) PO SCH (21:55)
[2019-10-28] VITALS (34 sets, daily range): BP systolic 36–153
[2019-10-28] MEDS: PROPOFOL DRIP 100 ML IV PRN ×2 (00:33→08:03)
[2019-10-28] MEDS: PIPERACILLIN/TAZO 2.25G/DEX-IS 50 ML IV SCH ×4 (00:46→17:53)
[2019-10-28 04:31] LABS: BASOPHILS # (AUTO) 0.1 K/uL (0.0-0.2); BASOPHILS % (AUTO) 0.6 % (0.0-2.0); EOSINOPHILS # (AUTO) 0.3 K/uL (0.0-0.4); EOSINOPHILS % (AUTO) 2.4 % (0.0-4.0); HEMATOCRIT 37.6 % (36-54); LYMPHOCYTES # (AUTO) 1.4 K/uL (1.0-5.5); LYMPHOCYTES % (AUTO) 11.3 % (20.5-51.5); MEAN CORPUSCULAR HEMOGLOBIN 29 pg (27-31); MEAN CORPUSCULAR HGB CONC 32 % (32-36); MEAN CORPUSCULAR VOLUME 91 fL (79.0-98.0); MONOCYTES # (AUTO) 0.8 K/uL (0.0-1.0); NEUTROPHILS # (AUTO) 9.4 K/uL (1.8-7.7); NEUTROPHILS % (AUTO) 78.7 % (40.0-70.0); PLATELET COUNT (AUTO) 166 K/uL (130-430); RED BLOOD CELL COUNT(AUTO) 4.15 MIL/uL (4.2-6.2); RED CELL DISTRIBUTION WIDTH 15.3 % (9.0-15.0); WHITE BLOOD COUNT (AUTO) 11.9 K/uL (4.8-10.8)
[2019-10-28 04:51] LABS: CALCIUM 10.2 mg/dL (8.4-11.0); CREATININE 1.88 mg/dL (0.55-1.30); POTASSIUM 4.2 mmol/L (3.5-5.1); TOTAL BILIRUBIN 0.5 mg/dL (0.0-1.0)
[2019-10-28] MEDS: ALBUTEROL MDI INHALATION 8 GM INH INH SCH ×3 (07:41→16:28)
[2019-10-28] MEDS: HEPARIN SODIUM,PORCINE 5000 UNITS/ML VIAL SUBCUT SCH ×2 (08:03→20:34)
[2019-10-28] MEDS: DESMOPRESSIN ACETATE 4 MCG/ML AMP IVP SCH ×2 (08:04→20:33)
[2019-10-28] MEDS: MIDAZOLAM HCL IN 0.9 % NACL/PF 50 ML IV PRN (08:04)
[2019-10-28] MEDS: CHOLECALCIFEROL (VITAMIN D3) 2,000 UNIT TABLET PO SCH (08:04)
[2019-10-28] MEDS: DEXAMETHASONE SOD PHOSPHATE 10 MG/ML VIAL IVP SCH (08:04)
[2019-10-28] MEDS: HYDROXYCHLOROQUINE SULFATE 200 MG TABLET PO SCH ×2 (08:04→20:33)
[2019-10-28] MEDS: ASCORBIC ACID 500 MG TABLET PO SCH (08:56)
[2019-10-28] MEDS: INSULIN LISPRO SLIDING SCALE 100 UNITS/ML VIAL (humaLOG) SUBCUT PRN ×2 (13:04→18:30)
[2019-10-28] MEDS: FAMOTIDINE PF 20 MG/2 ML VIAL IVP SCH (17:53)
[2019-10-28] MEDS: SENNOSIDES/DOCUSATE SODIUM 1 TAB TABLET(SENOKOT-S) PO SCH (20:33)
[2019-10-29] VITALS (36 sets, daily range): BP systolic 112–168
[2019-10-29] MEDS: PIPERACILLIN/TAZO 2.25G/DEX-IS 50 ML IV SCH ×4 (00:14→19:46)
[2019-10-29 06:40] LABS: BASOPHILS % (AUTO) 0.4 % (0.0-2.0); EOSINOPHILS # (AUTO) 0.2 K/uL (0.0-0.4); EOSINOPHILS % (AUTO) 2.1 % (0.0-4.0); HEMATOCRIT 36.4 % (36-54); HEMOGLOBIN 11.6 g/dL (14.0-18.0); LYMPHOCYTES # (AUTO) 1.3 K/uL (1.0-5.5); LYMPHOCYTES % (AUTO) 13.4 % (20.5-51.5); MEAN CORPUSCULAR HEMOGLOBIN 30 pg (27-31); MEAN CORPUSCULAR HGB CONC 32 % (32-36); MEAN CORPUSCULAR VOLUME 92 fL (79.0-98.0); MONOCYTES # (AUTO) 0.8 K/uL (0.0-1.0); MONOCYTES % (AUTO) 8.1 % (1.7-9.3); NEUTROPHILS # (AUTO) 7.4 K/uL (1.8-7.7); PLATELET COUNT (AUTO) 152 K/uL (130-430); RED BLOOD CELL COUNT(AUTO) 3.95 MIL/uL (4.2-6.2); RED CELL DISTRIBUTION WIDTH 15.6 % (9.0-15.0); WHITE BLOOD COUNT (AUTO) 9.7 K/uL (4.8-10.8)
[2019-10-29 07:07] LABS: C-REACTIVE PROTEIN QUANT 4.3 mg/dL (0-0.5); CALCIUM 10.6 mg/dL (8.4-11.0); CREATININE 1.74 mg/dL (0.55-1.30)
[2019-10-29 07:23] LABS: TOTAL BILIRUBIN 0.4 mg/dL (0.0-1.0)
[2019-10-29 07:53] LABS: POTASSIUM 4.5 mmol/L (3.5-5.1)
[2019-10-29] MEDS: ALBUTEROL MDI INHALATION 8 GM INH INH SCH ×4 (08:55→19:45)
[2019-10-29] MEDS: ASCORBIC ACID 500 MG TABLET PO SCH (09:59)
[2019-10-29] MEDS: DESMOPRESSIN ACETATE 4 MCG/ML AMP IVP SCH ×2 (09:59→22:46)
[2019-10-29] MEDS: DEXAMETHASONE SOD PHOSPHATE 10 MG/ML VIAL IVP SCH (09:59)
[2019-10-29] MEDS: HEPARIN SODIUM,PORCINE 5000 UNITS/ML VIAL SUBCUT SCH ×2 (10:00→22:49)
[2019-10-29] MEDS: HYDROXYCHLOROQUINE SULFATE 200 MG TABLET PO SCH ×2 (10:00→22:44)
[2019-10-29] MEDS: CHOLECALCIFEROL (VITAMIN D3) 2,000 UNIT TABLET PO SCH (10:00)
[2019-10-29 10:15] LABS: ERYTHROCYTE SEDIMENTATION RATE 88 MM/HR (0-15)
[2019-10-29] MEDS ORDERED: PROPOFOL DRIP 100 ML IV PRN (10:15)
[2019-10-29] MEDS ORDERED: PROPOFOL DRIP 100 ML IV ONE (10:27)
[2019-10-29] MEDS: MIDAZOLAM HCL IN 0.9 % NACL/PF 50 ML IV PRN (10:55)
[2019-10-29] MEDS: INSULIN LISPRO SLIDING SCALE 100 UNITS/ML VIAL (humaLOG) SUBCUT PRN ×2 (12:32→18:29)
[2019-10-29] MEDS: FAMOTIDINE PF 20 MG/2 ML VIAL IVP SCH (19:46)
[2019-10-29] MEDS: SENNOSIDES/DOCUSATE SODIUM 1 TAB TABLET(SENOKOT-S) PO SCH (22:46)
[2019-10-30] VITALS (33 sets, daily range): BP systolic 145–176
[2019-10-30] MEDS: PIPERACILLIN/TAZO 2.25G/DEX-IS 50 ML IV SCH ×5 (00:50→23:18)
[2019-10-30 06:30] LABS: BASOPHILS # (AUTO) 0.1 K/uL (0.0-0.2); BASOPHILS % (AUTO) 0.7 % (0.0-2.0); EOSINOPHILS # (AUTO) 0.1 K/uL (0.0-0.4); EOSINOPHILS % (AUTO) 0.8 % (0.0-4.0); HEMATOCRIT 37.6 % (36-54); HEMOGLOBIN 11.9 g/dL (14.0-18.0); LYMPHOCYTES # (AUTO) 1.7 K/uL (1.0-5.5); LYMPHOCYTES % (AUTO) 15.1 % (20.5-51.5); MEAN CORPUSCULAR HEMOGLOBIN 29 pg (27-31); MEAN CORPUSCULAR HGB CONC 32 % (32-36); MEAN CORPUSCULAR VOLUME 92 fL (79.0-98.0); MONOCYTES # (AUTO) 0.9 K/uL (0.0-1.0); MONOCYTES % (AUTO) 7.9 % (1.7-9.3); NEUTROPHILS # (AUTO) 8.4 K/uL (1.8-7.7); NEUTROPHILS % (AUTO) 75.5 % (40.0-70.0); PLATELET COUNT (AUTO) 153 K/uL (130-430); RED BLOOD CELL COUNT(AUTO) 4.06 MIL/uL (4.2-6.2); RED CELL DISTRIBUTION WIDTH 15.7 % (9.0-15.0); WHITE BLOOD COUNT (AUTO) 11.1 K/uL (4.8-10.8)
[2019-10-30 07:17] LABS: ALBUMIN 2.1 g/dL (3.4-4.8); CALCIUM 10.8 mg/dL (8.4-11.0); CREATININE 1.69 mg/dL (0.55-1.30); TOTAL BILIRUBIN 0.4 mg/dL (0.0-1.0)
[2019-10-30 08:04] LABS: POTASSIUM 5.4 mmol/L (3.5-5.1)
[2019-10-30] MEDS ORDERED: SODIUM POLYSTYRENE SULFONATE 15 GM/60 ML UDBTL NG ONE (09:00)
[2019-10-30] MEDS ORDERED: COMMUNICATION ORDER XX ONE (09:00)
[2019-10-30] MEDS: HYDROXYCHLOROQUINE SULFATE 200 MG TABLET PO SCH ×2 (09:35→20:21)
[2019-10-30] MEDS: HEPARIN SODIUM,PORCINE 5000 UNITS/ML VIAL SUBCUT SCH ×2 (09:35→20:20)
[2019-10-30] MEDS: CHOLECALCIFEROL (VITAMIN D3) 2,000 UNIT TABLET PO SCH (09:36)
[2019-10-30] MEDS: DEXAMETHASONE SOD PHOSPHATE 10 MG/ML VIAL IVP SCH (09:36)
[2019-10-30] MEDS: ASCORBIC ACID 500 MG TABLET PO SCH (09:38)
[2019-10-30] MEDS ORDERED: NOREPINEPHRINE BITARTRATE 4 MG in D5W 250 ML IV PRN (09:41)
[2019-10-30] MEDS ORDERED: SODIUM POLYSTYRENE SULFONATE 15 GM/60 ML UDBTL ONE (09:50)
[2019-10-30] MEDS: ALBUTEROL MDI INHALATION 8 GM INH INH SCH ×4 (11:45→20:19)
[2019-10-30] MEDS: INSULIN LISPRO SLIDING SCALE 100 UNITS/ML VIAL (humaLOG) SUBCUT PRN ×2 (12:00→17:58)
[2019-10-30] MEDS: ENALAPRILAT DIHYDRATE 1.25 MG/ML VIAL IVP PRN ×2 (12:04→17:59)
[2019-10-30] MEDS: FAMOTIDINE PF 20 MG/2 ML VIAL IVP SCH (17:45)
[2019-10-30] MEDS: DESMOPRESSIN ACETATE 4 MCG/ML AMP IVP SCH (20:21)
[2019-10-30] MEDS: SENNOSIDES/DOCUSATE SODIUM 1 TAB TABLET(SENOKOT-S) PO SCH (20:21)
[2019-10-31] VITALS (36 sets, daily range): BP systolic 126–167
[2019-10-31] MEDS: ENALAPRILAT DIHYDRATE 1.25 MG/ML VIAL IVP PRN (01:32)
[2019-10-31] MEDS: PIPERACILLIN/TAZO 2.25G/DEX-IS 50 ML IV SCH ×3 (05:33→18:05)
[2019-10-31 05:54] LABS: BASOPHILS # (AUTO) 0.1 K/uL (0.0-0.2); BASOPHILS % (AUTO) 0.6 % (0.0-2.0); EOSINOPHILS # (AUTO) 0.1 K/uL (0.0-0.4); EOSINOPHILS % (AUTO) 0.8 % (0.0-4.0); HEMATOCRIT 38.5 % (36-54); HEMOGLOBIN 12.1 g/dL (14.0-18.0); LYMPHOCYTES # (AUTO) 1.7 K/uL (1.0-5.5); MEAN CORPUSCULAR HEMOGLOBIN 30 pg (27-31); MEAN CORPUSCULAR HGB CONC 32 % (32-36); MEAN CORPUSCULAR VOLUME 93 fL (79.0-98.0); MONOCYTES # (AUTO) 0.8 K/uL (0.0-1.0); MONOCYTES % (AUTO) 8.1 % (1.7-9.3); NEUTROPHILS # (AUTO) 7.4 K/uL (1.8-7.7); NEUTROPHILS % (AUTO) 73.5 % (40.0-70.0); PLATELET COUNT (AUTO) 128 K/uL (130-430); RED BLOOD CELL COUNT(AUTO) 4.12 MIL/uL (4.2-6.2); RED CELL DISTRIBUTION WIDTH 15.6 % (9.0-15.0); WHITE BLOOD COUNT (AUTO) 10.1 K/uL (4.8-10.8)
[2019-10-31 06:41] LABS: ALBUMIN 2.1 g/dL (3.4-4.8); C-REACTIVE PROTEIN QUANT 2.7 mg/dL (0-0.5); CREATININE 1.76 mg/dL (0.55-1.30); TOTAL BILIRUBIN 0.5 mg/dL (0.0-1.0)
[2019-10-31] MEDS: ALBUTEROL MDI INHALATION 8 GM INH INH SCH ×4 (07:30→15:42)
[2019-10-31] MEDS: DEXAMETHASONE SOD PHOSPHATE 10 MG/ML VIAL IVP SCH (09:59)
[2019-10-31] MEDS: CHOLECALCIFEROL (VITAMIN D3) 2,000 UNIT TABLET PO SCH (10:00)
[2019-10-31] MEDS: ASCORBIC ACID 500 MG TABLET PO SCH (10:00)
[2019-10-31] MEDS: DESMOPRESSIN ACETATE 4 MCG/ML AMP IVP SCH ×2 (10:01→20:20)
[2019-10-31] MEDS: HEPARIN SODIUM,PORCINE 5000 UNITS/ML VIAL SUBCUT SCH ×2 (10:06→20:17)
[2019-10-31] MEDS: HYDROXYCHLOROQUINE SULFATE 200 MG TABLET PO SCH ×2 (12:34→20:20)
[2019-10-31] MEDS: FAMOTIDINE PF 20 MG/2 ML VIAL IVP SCH (18:05)
[2019-10-31] MEDS: SENNOSIDES/DOCUSATE SODIUM 1 TAB TABLET(SENOKOT-S) PO SCH (20:12)
[2019-11-01] VITALS (34 sets, daily range): BP systolic 107–157
[2019-11-01] MEDS: PIPERACILLIN/TAZO 2.25G/DEX-IS 50 ML IV SCH ×4 (00:22→17:06)
[2019-11-01 06:02] LABS: CALCIUM 10.4 mg/dL (8.4-11.0); CREATININE 1.65 mg/dL (0.55-1.30); POTASSIUM 4.5 mmol/L (3.5-5.1)
[2019-11-01] MEDS: ALBUTEROL MDI INHALATION 8 GM INH INH SCH ×3 (07:18→15:56)
[2019-11-01] MEDS: HYDROXYCHLOROQUINE SULFATE 200 MG TABLET PO SCH (09:30)
[2019-11-01] MEDS ORDERED: D5W 1,000 ML IV ONE (09:30)
[2019-11-01] MEDS: DEXAMETHASONE SOD PHOSPHATE 10 MG/ML VIAL IVP SCH (09:30)
[2019-11-01] MEDS: CHOLECALCIFEROL (VITAMIN D3) 2,000 UNIT TABLET PO SCH (09:30)
[2019-11-01] MEDS: HEPARIN SODIUM,PORCINE 5000 UNITS/ML VIAL SUBCUT SCH ×2 (09:31→21:59)
[2019-11-01] MEDS: DESMOPRESSIN ACETATE 4 MCG/ML AMP IVP SCH ×2 (09:35→21:56)
[2019-11-01] MEDS: ASCORBIC ACID 500 MG TABLET PO SCH (10:22)
[2019-11-01] MEDS: INSULIN LISPRO SLIDING SCALE 100 UNITS/ML VIAL (humaLOG) SUBCUT PRN ×2 (11:26→18:33)
[2019-11-01] MEDS: FAMOTIDINE PF 20 MG/2 ML VIAL IVP SCH (17:07)
[2019-11-01] MEDS: SENNOSIDES/DOCUSATE SODIUM 1 TAB TABLET(SENOKOT-S) PO SCH (21:56)
[2019-11-02] VITALS (34 sets, daily range): BP systolic 100–152
[2019-11-02] MEDS: PIPERACILLIN/TAZO 2.25G/DEX-IS 50 ML IV SCH ×4 (00:20→12:34)
[2019-11-02 08:48] LABS: BASOPHILS # (AUTO) 0.1 K/uL (0.0-0.2); BASOPHILS % (AUTO) 0.7 % (0.0-2.0); EOSINOPHILS # (AUTO) 0.2 K/uL (0.0-0.4); EOSINOPHILS % (AUTO) 1.9 % (0.0-4.0); HEMATOCRIT 34.6 % (36-54); LYMPHOCYTES # (AUTO) 1.6 K/uL (1.0-5.5); LYMPHOCYTES % (AUTO) 19.5 % (20.5-51.5); MEAN CORPUSCULAR HEMOGLOBIN 30 pg (27-31); MEAN CORPUSCULAR HGB CONC 32 % (32-36); MEAN CORPUSCULAR VOLUME 94 fL (79.0-98.0); MONOCYTES # (AUTO) 0.8 K/uL (0.0-1.0); MONOCYTES % (AUTO) 9.1 % (1.7-9.3); NEUTROPHILS # (AUTO) 5.7 K/uL (1.8-7.7); NEUTROPHILS % (AUTO) 68.8 % (40.0-70.0); PLATELET COUNT (AUTO) 121 K/uL (130-430); RED BLOOD CELL COUNT(AUTO) 3.69 MIL/uL (4.2-6.2); RED CELL DISTRIBUTION WIDTH 15.6 % (9.0-15.0); WHITE BLOOD COUNT (AUTO) 8.4 K/uL (4.8-10.8)
[2019-11-02] MEDS: DESMOPRESSIN ACETATE 4 MCG/ML AMP IVP SCH ×2 (09:05→20:44)
[2019-11-02] MEDS: CHOLECALCIFEROL (VITAMIN D3) 2,000 UNIT TABLET PO SCH (09:05)
[2019-11-02] MEDS: ASCORBIC ACID 500 MG TABLET PO SCH (09:05)
[2019-11-02] MEDS: DEXAMETHASONE SOD PHOSPHATE 10 MG/ML VIAL IVP SCH (09:05)
[2019-11-02] MEDS: HEPARIN SODIUM,PORCINE 5000 UNITS/ML VIAL SUBCUT SCH ×2 (09:06→20:46)
[2019-11-02 09:14] LABS: ALANINE AMINOTRANSFERASE 44 U/L (12-78); ALBUMIN 2.3 g/dL (3.4-4.8); ASPARTATE AMINOTRANSFERASE 19 U/L (10-37); CREATININE 1.76 mg/dL (0.55-1.30); GLUCOSE 137 mg/dL (70-99); POTASSIUM 4.7 mmol/L (3.5-5.1); SODIUM SERUM 157 mmol/L (136-145); TOTAL BILIRUBIN 0.6 mg/dL (0.0-1.0); UREA NITROGEN, BLOOD 81 mg/dL (8-21)
[2019-11-02 09:30] LABS: GFR AFRICAN AMERICAN 50 mL/min (>90)
[2019-11-02 09:35] LABS: ANION GAP < 3 (5-15); CHLORIDE 127 mmol/L (98-107)
[2019-11-02] MEDS: ALBUTEROL MDI INHALATION 8 GM INH INH SCH ×3 (09:56→16:04)
[2019-11-02] MEDS: INSULIN LISPRO SLIDING SCALE 100 UNITS/ML VIAL (humaLOG) SUBCUT PRN (12:56)
[2019-11-02] MEDS: SENNOSIDES/DOCUSATE SODIUM 1 TAB TABLET(SENOKOT-S) PO SCH (20:44)
[2019-11-03] VITALS (30 sets, daily range): BP systolic 125–180
[2019-11-03] MEDS: PIPERACILLIN/TAZO 2.25G/DEX-IS 50 ML IV SCH ×4 (06:25→18:30)
[2019-11-03 06:48] LABS: BASOPHILS % (AUTO) 0.6 % (0.0-2.0); EOSINOPHILS # (AUTO) 0.1 K/uL (0.0-0.4); HEMATOCRIT 34.6 % (36-54); LYMPHOCYTES # (AUTO) 1.5 K/uL (1.0-5.5); LYMPHOCYTES % (AUTO) 19.9 % (20.5-51.5); MEAN CORPUSCULAR HEMOGLOBIN 30 pg (27-31); MEAN CORPUSCULAR HGB CONC 32 % (32-36); MEAN CORPUSCULAR VOLUME 94 fL (79.0-98.0); MONOCYTES # (AUTO) 0.7 K/uL (0.0-1.0); MONOCYTES % (AUTO) 9.9 % (1.7-9.3); NEUTROPHILS # (AUTO) 5.1 K/uL (1.8-7.7); NEUTROPHILS % (AUTO) 67.6 % (40.0-70.0); PLATELET COUNT (AUTO) 112 K/uL (130-430); WHITE BLOOD COUNT (AUTO) 7.5 K/uL (4.8-10.8)
[2019-11-03 07:06] LABS: CREATININE 1.78 mg/dL (0.55-1.30); POTASSIUM 4.6 mmol/L (3.5-5.1)
[2019-11-03 07:07] LABS: ALBUMIN 2.3 g/dL (3.4-4.8); TOTAL BILIRUBIN 0.6 mg/dL (0.0-1.0)
[2019-11-03] MEDS: ALBUTEROL MDI INHALATION 8 GM INH INH SCH ×3 (08:25→17:51)
[2019-11-03 08:45] LABS: C-REACTIVE PROTEIN QUANT 1.9 mg/dL (0-0.5)
[2019-11-03] MEDS: DESMOPRESSIN ACETATE 4 MCG/ML AMP IVP SCH ×2 (09:26→22:37)
[2019-11-03] MEDS: HEPARIN SODIUM,PORCINE 5000 UNITS/ML VIAL SUBCUT SCH ×2 (09:27→22:27)
[2019-11-03] MEDS: DEXAMETHASONE SOD PHOSPHATE 10 MG/ML VIAL IVP SCH (09:27)
[2019-11-03] MEDS: CHOLECALCIFEROL (VITAMIN D3) 2,000 UNIT TABLET PO SCH (09:27)
[2019-11-03] MEDS: ASCORBIC ACID 500 MG TABLET PO SCH (09:27)
[2019-11-03] MEDS: INSULIN LISPRO SLIDING SCALE 100 UNITS/ML VIAL (humaLOG) SUBCUT PRN (12:56)
[2019-11-03] MEDS: D5W 1,000 ML IV SCH (15:32)
[2019-11-03] MEDS: FAMOTIDINE PF 20 MG/2 ML VIAL IVP SCH (18:30)
[2019-11-03] MEDS: SENNOSIDES/DOCUSATE SODIUM 1 TAB TABLET(SENOKOT-S) PO SCH (22:16)
[2019-11-04] VITALS (27 sets, daily range): BP systolic 90–171
[2019-11-04] MEDS: PIPERACILLIN/TAZO 2.25G/DEX-IS 50 ML IV SCH ×4 (00:45→18:23)
[2019-11-04] MEDS: D5W 1,000 ML IV SCH ×3 (01:33→21:34)
[2019-11-04 07:30] LABS: BASOPHILS % (AUTO) 0.4 % (0.0-2.0); EOSINOPHILS # (AUTO) 0.2 K/uL (0.0-0.4); EOSINOPHILS % (AUTO) 2.6 % (0.0-4.0); HEMATOCRIT 33.5 % (36-54); HEMOGLOBIN 10.7 g/dL (14.0-18.0); LYMPHOCYTES # (AUTO) 1.7 K/uL (1.0-5.5); LYMPHOCYTES % (AUTO) 21.1 % (20.5-51.5); MEAN CORPUSCULAR HEMOGLOBIN 30 pg (27-31); MEAN CORPUSCULAR HGB CONC 32 % (32-36); MEAN CORPUSCULAR VOLUME 94 fL (79.0-98.0); MONOCYTES # (AUTO) 0.7 K/uL (0.0-1.0); MONOCYTES % (AUTO) 8.8 % (1.7-9.3); NEUTROPHILS # (AUTO) 5.4 K/uL (1.8-7.7); NEUTROPHILS % (AUTO) 67.1 % (40.0-70.0); PLATELET COUNT (AUTO) 118 K/uL (130-430); RED BLOOD CELL COUNT(AUTO) 3.56 MIL/uL (4.2-6.2); RED CELL DISTRIBUTION WIDTH 15.3 % (9.0-15.0)
[2019-11-04 07:47] LABS: ALBUMIN 2.3 g/dL (3.4-4.8); C-REACTIVE PROTEIN QUANT 1.3 mg/dL (0-0.5); CALCIUM 9.6 mg/dL (8.4-11.0); CREATININE 1.47 mg/dL (0.55-1.30); POTASSIUM 4.4 mmol/L (3.5-5.1); TOTAL BILIRUBIN 0.4 mg/dL (0.0-1.0)
[2019-11-04] MEDS: ASCORBIC ACID 500 MG TABLET PO SCH (10:26)
[2019-11-04] MEDS: HEPARIN SODIUM,PORCINE 5000 UNITS/ML VIAL SUBCUT SCH ×2 (10:27→20:51)
[2019-11-04] MEDS: DEXAMETHASONE SOD PHOSPHATE 10 MG/ML VIAL IVP SCH (10:27)
[2019-11-04] MEDS: DESMOPRESSIN ACETATE 4 MCG/ML AMP IVP SCH ×3 (10:28→21:00)
[2019-11-04] MEDS: CHOLECALCIFEROL (VITAMIN D3) 2,000 UNIT TABLET PO SCH (10:33)
[2019-11-04] MEDS ORDERED: PROPOFOL DRIP 100 ML IV PRN (15:00)
[2019-11-04 16:30] LABS: BASOPHILS # (AUTO) 0.1 K/uL (0.0-0.2); BASOPHILS % (AUTO) 0.6 % (0.0-2.0); EOSINOPHILS # (AUTO) 0.1 K/uL (0.0-0.4); EOSINOPHILS % (AUTO) 0.4 % (0.0-4.0); HEMATOCRIT 39.8 % (36-54); HEMOGLOBIN 12.3 g/dL (14.0-18.0); LYMPHOCYTES # (AUTO) 1.8 K/uL (1.0-5.5); LYMPHOCYTES % (AUTO) 13.6 % (20.5-51.5); MEAN CORPUSCULAR HEMOGLOBIN 30 pg (27-31); MEAN CORPUSCULAR HGB CONC 31 % (32-36); MEAN CORPUSCULAR VOLUME 96 fL (79.0-98.0); MONOCYTES # (AUTO) 0.6 K/uL (0.0-1.0); MONOCYTES % (AUTO) 4.3 % (1.7-9.3); NEUTROPHILS # (AUTO) 10.9 K/uL (1.8-7.7); NEUTROPHILS % (AUTO) 81.1 % (40.0-70.0); PLATELET COUNT (AUTO) 197 K/uL (130-430); RED BLOOD CELL COUNT(AUTO) 4.14 MIL/uL (4.2-6.2); RED CELL DISTRIBUTION WIDTH 15.7 % (9.0-15.0); WHITE BLOOD COUNT (AUTO) 13.4 K/uL (4.8-10.8)
[2019-11-04 16:45] LABS: CALCIUM 9.6 mg/dL (8.4-11.0); CREATININE 1.94 mg/dL (0.55-1.30)
[2019-11-04 16:47] LABS: POTASSIUM 5.3 mmol/L (3.5-5.1)
[2019-11-04] MEDS ORDERED: MIDAZOLAM HCL 5 MG/5 ML VIAL ONE (17:09)
[2019-11-04] MEDS ORDERED: SUCCINYLCHOLINE CHLORIDE 20 MG/ML(QUELICIN) IVP ONE (17:29)
[2019-11-04] MEDS ORDERED: ETOMIDATE 20 MG/ 10 ML VIAL (AMIDATE) IVP ONE (17:29)
[2019-11-04] MEDS: FAMOTIDINE PF 20 MG/2 ML VIAL IVP SCH (18:23)
[2019-11-04] MEDS: INSULIN LISPRO SLIDING SCALE 100 UNITS/ML VIAL (humaLOG) SUBCUT PRN (18:29)
[2019-11-04] MEDS: ALBUTEROL MDI INHALATION 8 GM INH INH SCH (19:46)
[2019-11-04] MEDS: SENNOSIDES/DOCUSATE SODIUM 1 TAB TABLET(SENOKOT-S) PO SCH (20:49)
[2019-11-05] VITALS (35 sets, daily range): BP systolic 107–155
[2019-11-05] MEDS: PIPERACILLIN/TAZO 2.25G/DEX-IS 50 ML IV SCH ×5 (00:07→23:34)
[2019-11-05] MEDS: INSULIN LISPRO SLIDING SCALE 100 UNITS/ML VIAL (humaLOG) SUBCUT PRN ×3 (00:23→13:07)
[2019-11-05 07:01] LABS: C-REACTIVE PROTEIN QUANT 8.5 mg/dL (0-0.5); CALCIUM 9.3 mg/dL (8.4-11.0); CREATININE 2.21 mg/dL (0.55-1.30); POTASSIUM 4.7 mmol/L (3.5-5.1)
[2019-11-05] MEDS: ALBUTEROL MDI INHALATION 8 GM INH INH SCH ×4 (07:18→19:30)
[2019-11-05] MEDS: DESMOPRESSIN ACETATE 4 MCG/ML AMP IVP SCH (09:29)
[2019-11-05] MEDS: DEXAMETHASONE SOD PHOSPHATE 10 MG/ML VIAL IVP SCH (09:29)
[2019-11-05] MEDS: CHOLECALCIFEROL (VITAMIN D3) 2,000 UNIT TABLET PO SCH (09:31)
[2019-11-05] MEDS: HEPARIN SODIUM,PORCINE 5000 UNITS/ML VIAL SUBCUT SCH ×2 (09:34→20:51)
[2019-11-05] MEDS: ASCORBIC ACID 500 MG TABLET PO SCH (09:35)
[2019-11-05] MEDS: D5W 1,000 ML IV SCH (12:40)
[2019-11-05] MEDS: FAMOTIDINE PF 20 MG/2 ML VIAL IVP SCH (17:36)
[2019-11-05] MEDS: SENNOSIDES/DOCUSATE SODIUM 1 TAB TABLET(SENOKOT-S) PO SCH (20:50)
[2019-11-05] MEDS ORDERED: *HEPARIN PER PHARMACY XX ONE (22:15)
[2019-11-05] MEDS ORDERED: HEPARIN SODIUM,PORCINE 2000 UNITS/0.4 ML BOLUS IVP PRN (22:30)
[2019-11-05] MEDS ORDERED: HEPARIN SODIUM,PORCINE 5000 UNITS/ML VIAL IV ONE (22:30)
[2019-11-05] MEDS ORDERED: HEPARIN SODIUM,PORCINE 3000 UNITS/0.6 ML BOLUS IVP PRN (22:30)
[2019-11-05] MEDS: HEPARIN 25,000 UNITS in 250 ML PREMIX IV PRN (23:31)
[2019-11-05] MEDS ORDERED: HEPARIN SODIUM, PORCINE 10,000 UNITS/ 10 ML VIAL ONE (23:40)
[2019-11-06] VITALS (31 sets, daily range): BP systolic 106–145
[2019-11-06 06:43] LABS: BASOPHILS % (AUTO) 0.4 % (0.0-2.0); EOSINOPHILS # (AUTO) 0.2 K/uL (0.0-0.4); EOSINOPHILS % (AUTO) 2.5 % (0.0-4.0); HEMATOCRIT 31.3 % (36-54); HEMOGLOBIN 10.3 g/dL (14.0-18.0); LYMPHOCYTES # (AUTO) 1.5 K/uL (1.0-5.5); LYMPHOCYTES % (AUTO) 19.7 % (20.5-51.5); MEAN CORPUSCULAR HEMOGLOBIN 30 pg (27-31); MEAN CORPUSCULAR HGB CONC 33 % (32-36); MEAN CORPUSCULAR VOLUME 93 fL (79.0-98.0); MONOCYTES # (AUTO) 0.6 K/uL (0.0-1.0); MONOCYTES % (AUTO) 7.6 % (1.7-9.3); NEUTROPHILS # (AUTO) 5.2 K/uL (1.8-7.7); NEUTROPHILS % (AUTO) 69.8 % (40.0-70.0); PLATELET COUNT (AUTO) 101 K/uL (130-430); RED BLOOD CELL COUNT(AUTO) 3.39 MIL/uL (4.2-6.2); RED CELL DISTRIBUTION WIDTH 15.2 % (9.0-15.0); WHITE BLOOD COUNT (AUTO) 7.4 K/uL (4.8-10.8)
[2019-11-06 06:55] LABS: ALBUMIN 2.1 g/dL (3.4-4.8); BILIRUBIN,DIRECT 0.2 mg/dL (0.0-0.3); CALCIUM 9.4 mg/dL (8.4-11.0); CREATININE 2.13 mg/dL (0.55-1.30); POTASSIUM 4.7 mmol/L (3.5-5.1); TOTAL BILIRUBIN 0.5 mg/dL (0.0-1.0)
[2019-11-06] MEDS: PIPERACILLIN/TAZO 2.25G/DEX-IS 50 ML IV SCH ×4 (07:13→23:09)
[2019-11-06 07:53] LABS: C-REACTIVE PROTEIN QUANT 16.7 mg/dL (0-0.5)
[2019-11-06] MEDS: ALBUTEROL MDI INHALATION 8 GM INH INH SCH ×4 (09:01→19:55)
[2019-11-06] MEDS: CHOLECALCIFEROL (VITAMIN D3) 2,000 UNIT TABLET PO SCH (09:18)
[2019-11-06] MEDS: ASCORBIC ACID 500 MG TABLET PO SCH (09:18)
[2019-11-06] MEDS: DESMOPRESSIN ACETATE 4 MCG/ML AMP IVP SCH ×2 (09:19→21:03)
[2019-11-06] MEDS: DEXAMETHASONE SOD PHOSPHATE 10 MG/ML VIAL IVP SCH (09:19)
[2019-11-06] MEDS: D5W 1,000 ML IV SCH (11:16)
[2019-11-06] MEDS ORDERED: NOREPINEPHRINE BITARTRATE 4 MG in D5W 246 ML IV PRN (12:53)
[2019-11-06] MEDS ORDERED: VANCOMYCIN IV SCH (14:00)
[2019-11-06] MEDS ORDERED: NS IV SCH (14:00)
[2019-11-06] MEDS: VANCOMYCIN HCL 1 GM/NS PREMIX 250 ML IV SCH (14:26)
[2019-11-06] MEDS: FAMOTIDINE PF 20 MG/2 ML VIAL IVP SCH (17:21)
[2019-11-06] MEDS: INSULIN LISPRO SLIDING SCALE 100 UNITS/ML VIAL (humaLOG) SUBCUT PRN (23:35)
[2019-11-07] VITALS (32 sets, daily range): BP systolic 97–149
[2019-11-07] MEDS: HEPARIN 25,000 UNITS in 250 ML PREMIX IV PRN (02:26)
[2019-11-07] MEDS: D5W 1,000 ML IV SCH (05:08)
[2019-11-07] MEDS: PIPERACILLIN/TAZO 2.25G/DEX-IS 50 ML IV SCH ×2 (05:08→12:10)
[2019-11-07 06:07] LABS: BASOPHILS % (AUTO) 0.2 % (0.0-2.0); EOSINOPHILS # (AUTO) 0.2 K/uL (0.0-0.4); EOSINOPHILS % (AUTO) 2.3 % (0.0-4.0); HEMATOCRIT 30.1 % (36-54); HEMOGLOBIN 9.8 g/dL (14.0-18.0); LYMPHOCYTES # (AUTO) 1.4 K/uL (1.0-5.5); LYMPHOCYTES % (AUTO) 17.2 % (20.5-51.5); MEAN CORPUSCULAR HEMOGLOBIN 31 pg (27-31); MEAN CORPUSCULAR HGB CONC 33 % (32-36); MEAN CORPUSCULAR VOLUME 93 fL (79.0-98.0); MONOCYTES # (AUTO) 0.7 K/uL (0.0-1.0); MONOCYTES % (AUTO) 8.9 % (1.7-9.3); NEUTROPHILS # (AUTO) 5.9 K/uL (1.8-7.7); NEUTROPHILS % (AUTO) 71.4 % (40.0-70.0); PLATELET COUNT (AUTO) 120 K/uL (130-430); RED BLOOD CELL COUNT(AUTO) 3.22 MIL/uL (4.2-6.2); RED CELL DISTRIBUTION WIDTH 15.1 % (9.0-15.0); WHITE BLOOD COUNT (AUTO) 8.2 K/uL (4.8-10.8)
[2019-11-07 06:16] LABS: ALBUMIN 2.1 g/dL (3.4-4.8); C-REACTIVE PROTEIN QUANT 7.9 mg/dL (0-0.5); CALCIUM 9.4 mg/dL (8.4-11.0); CREATININE 1.96 mg/dL (0.55-1.30); POTASSIUM 4.9 mmol/L (3.5-5.1); TOTAL BILIRUBIN 0.5 mg/dL (0.0-1.0)
[2019-11-07] MEDS: ASCORBIC ACID 500 MG TABLET PO SCH (09:00)
[2019-11-07] MEDS: CHOLECALCIFEROL (VITAMIN D3) 2,000 UNIT TABLET PO SCH (09:00)
[2019-11-07] MEDS ORDERED: LORazepam 2 MG/ML VIAL IVP PRN (09:00)
[2019-11-07] MEDS: levETIRAcetam 500 MG in NS 100 ML IV SCH ×2 (09:00→21:22)
[2019-11-07] MEDS: DESMOPRESSIN ACETATE 4 MCG/ML AMP IVP SCH ×2 (09:25→21:24)
[2019-11-07] MEDS: DEXAMETHASONE SOD PHOSPHATE 10 MG/ML VIAL IVP SCH (09:28)
[2019-11-07] MEDS: ALBUTEROL MDI INHALATION 8 GM INH INH SCH ×2 (11:33→16:02)
[2019-11-07] MEDS: INSULIN LISPRO SLIDING SCALE 100 UNITS/ML VIAL (humaLOG) SUBCUT PRN ×2 (12:45→17:25)
[2019-11-07] MEDS: VANCOMYCIN HCL 1 GM/NS PREMIX 250 ML IV SCH (15:12)
[2019-11-07] MEDS: FAMOTIDINE PF 20 MG/2 ML VIAL IVP SCH (17:06)
[2019-11-07] MEDS: CEFEPIME 0.5 GM in D5W 50 ML IV SCH (21:23)
[2019-11-08] VITALS (29 sets, daily range): BP systolic 94–145
[2019-11-08] MEDS: VANCOMYCIN HCL 1 GM/NS PREMIX 250 ML IV SCH ×2 (02:15→15:02)
[2019-11-08] MEDS: HEPARIN 25,000 UNITS in 250 ML PREMIX IV PRN (02:33)
[2019-11-08] MEDS: D5W 1,000 ML IV SCH (06:49)
[2019-11-08 06:53] LABS: ALBUMIN 2.2 g/dL (3.4-4.8); C-REACTIVE PROTEIN QUANT 4.6 mg/dL (0-0.5); CALCIUM 9.6 mg/dL (8.4-11.0); CREATININE 1.93 mg/dL (0.55-1.30); POTASSIUM 5.3 mmol/L (3.5-5.1); TOTAL BILIRUBIN 0.4 mg/dL (0.0-1.0)
[2019-11-08 06:59] LABS: BASOPHILS % (AUTO) 0.6 % (0.0-2.0); EOSINOPHILS # (AUTO) 0.1 K/uL (0.0-0.4); EOSINOPHILS % (AUTO) 1.8 % (0.0-4.0); HEMATOCRIT 29.6 % (36-54); HEMOGLOBIN 9.7 g/dL (14.0-18.0); LYMPHOCYTES # (AUTO) 1.7 K/uL (1.0-5.5); LYMPHOCYTES % (AUTO) 21.2 % (20.5-51.5); MEAN CORPUSCULAR HEMOGLOBIN 31 pg (27-31); MEAN CORPUSCULAR HGB CONC 33 % (32-36); MEAN CORPUSCULAR VOLUME 95 fL (79.0-98.0); MONOCYTES # (AUTO) 0.8 K/uL (0.0-1.0); MONOCYTES % (AUTO) 9.5 % (1.7-9.3); NEUTROPHILS # (AUTO) 5.3 K/uL (1.8-7.7); NEUTROPHILS % (AUTO) 66.9 % (40.0-70.0); PLATELET COUNT (AUTO) 132 K/uL (130-430); RED BLOOD CELL COUNT(AUTO) 3.13 MIL/uL (4.2-6.2); RED CELL DISTRIBUTION WIDTH 15.3 % (9.0-15.0); WHITE BLOOD COUNT (AUTO) 7.9 K/uL (4.8-10.8)
[2019-11-08] MEDS: levETIRAcetam 500 MG in NS 100 ML IV SCH ×2 (08:13→21:22)
[2019-11-08] MEDS: ASCORBIC ACID 500 MG TABLET PO SCH (08:15)
[2019-11-08] MEDS: DEXAMETHASONE SOD PHOSPHATE 10 MG/ML VIAL IVP SCH (08:15)
[2019-11-08] MEDS: CHOLECALCIFEROL (VITAMIN D3) 2,000 UNIT TABLET PO SCH (08:16)
[2019-11-08] MEDS: DESMOPRESSIN ACETATE 4 MCG/ML AMP IVP SCH ×2 (08:17→21:22)
[2019-11-08] MEDS: ALBUTEROL MDI INHALATION 8 GM INH INH SCH ×8 (08:30→21:58)
[2019-11-08] MEDS: CEFEPIME 0.5 GM in D5W 50 ML IV SCH ×2 (09:00→21:22)
[2019-11-08] MEDS: FAMOTIDINE PF 20 MG/2 ML VIAL IVP SCH (17:35)
[2019-11-08] MEDS: methylPREDNISolone SOD SUCC 40 MG/ML VIAL IVP SCH (21:23)
[2019-11-09] VITALS (27 sets, daily range): BP systolic 120–162
[2019-11-09] MEDS: D5W 1,000 ML IV SCH (01:34)
[2019-11-09] MEDS: VANCOMYCIN HCL 1 GM/NS PREMIX 250 ML IV SCH ×2 (01:35→14:57)
[2019-11-09] MEDS: INSULIN LISPRO SLIDING SCALE 100 UNITS/ML VIAL (humaLOG) SUBCUT PRN ×3 (01:45→15:44)
[2019-11-09 03:27] LABS: BASOPHILS % (AUTO) 0.3 % (0.0-2.0); EOSINOPHILS % (AUTO) 0.5 % (0.0-4.0); HEMATOCRIT 27.1 % (36-54); LYMPHOCYTES # (AUTO) 0.7 K/uL (1.0-5.5); LYMPHOCYTES % (AUTO) 11.9 % (20.5-51.5); MEAN CORPUSCULAR HEMOGLOBIN 30 pg (27-31); MEAN CORPUSCULAR HGB CONC 33 % (32-36); MEAN CORPUSCULAR VOLUME 92 fL (79.0-98.0); MONOCYTES # (AUTO) 0.3 K/uL (0.0-1.0); MONOCYTES % (AUTO) 4.8 % (1.7-9.3); NEUTROPHILS # (AUTO) 5.1 K/uL (1.8-7.7); NEUTROPHILS % (AUTO) 82.5 % (40.0-70.0); PLATELET COUNT (AUTO) 117 K/uL (130-430); RED BLOOD CELL COUNT(AUTO) 2.96 MIL/uL (4.2-6.2); RED CELL DISTRIBUTION WIDTH 14.8 % (9.0-15.0); WHITE BLOOD COUNT (AUTO) 6.2 K/uL (4.8-10.8)
[2019-11-09 03:47] LABS: ALBUMIN 2.2 g/dL (3.4-4.8); CALCIUM 9.3 mg/dL (8.4-11.0); CREATININE 1.9 mg/dL (0.55-1.30); POTASSIUM 5.6 mmol/L (3.5-5.1); TOTAL BILIRUBIN 0.4 mg/dL (0.0-1.0)
[2019-11-09] MEDS: ALBUTEROL MDI INHALATION 8 GM INH INH SCH ×2 (08:20→11:57)
[2019-11-09] MEDS: CHOLECALCIFEROL (VITAMIN D3) 2,000 UNIT TABLET PO SCH (09:00)
[2019-11-09] MEDS: methylPREDNISolone SOD SUCC 40 MG/ML VIAL IVP SCH ×2 (09:15→20:57)
[2019-11-09] MEDS: ASCORBIC ACID 500 MG TABLET PO SCH (09:16)
[2019-11-09] MEDS: DESMOPRESSIN ACETATE 4 MCG/ML AMP IVP SCH ×2 (09:16→20:57)
[2019-11-09] MEDS: levETIRAcetam 500 MG in NS 100 ML IV SCH ×2 (09:18→22:10)
[2019-11-09] MEDS: CEFEPIME 0.5 GM in D5W 50 ML IV SCH ×2 (09:19→20:57)
[2019-11-09] MEDS ORDERED: SODIUM POLYSTYRENE SULFONATE 15 GM/60 ML UDBTL PO ONE (14:15)
[2019-11-09] MEDS: FAMOTIDINE PF 20 MG/2 ML VIAL IVP SCH (17:13)
[2019-11-09] MEDS: HEPARIN 25,000 UNITS in 250 ML PREMIX IV PRN (17:44)
[2019-11-10] VITALS (29 sets, daily range): BP systolic 88–160
[2019-11-10] MEDS: VANCOMYCIN HCL 1 GM/NS PREMIX 250 ML IV SCH ×2 (02:17→14:00)
[2019-11-10] MEDS: D5W 1,000 ML IV SCH ×2 (04:00→17:18)
[2019-11-10 07:08] LABS: ALBUMIN 2.3 g/dL (3.4-4.8); CALCIUM 9.4 mg/dL (8.4-11.0); CREATININE 1.75 mg/dL (0.55-1.30); POTASSIUM 4.8 mmol/L (3.5-5.1); TOTAL BILIRUBIN 0.5 mg/dL (0.0-1.0)
[2019-11-10 07:12] LABS: BASOPHILS % (AUTO) 0.3 % (0.0-2.0); EOSINOPHILS % (AUTO) 0.2 % (0.0-4.0); HEMATOCRIT 31.6 % (36-54); HEMOGLOBIN 10.1 g/dL (14.0-18.0); LYMPHOCYTES # (AUTO) 1.1 K/uL (1.0-5.5); LYMPHOCYTES % (AUTO) 11.6 % (20.5-51.5); MEAN CORPUSCULAR HEMOGLOBIN 31 pg (27-31); MEAN CORPUSCULAR HGB CONC 32 % (32-36); MEAN CORPUSCULAR VOLUME 96 fL (79.0-98.0); MONOCYTES # (AUTO) 0.9 K/uL (0.0-1.0); NEUTROPHILS # (AUTO) 7.6 K/uL (1.8-7.7); NEUTROPHILS % (AUTO) 78.9 % (40.0-70.0); PLATELET COUNT (AUTO) 139 K/uL (130-430); RED CELL DISTRIBUTION WIDTH 15.7 % (9.0-15.0); WHITE BLOOD COUNT (AUTO) 9.7 K/uL (4.8-10.8)
[2019-11-10] MEDS: ALBUTEROL MDI INHALATION 8 GM INH INH SCH ×3 (07:30→15:30)
[2019-11-10] MEDS: ASCORBIC ACID 500 MG TABLET PO SCH (08:14)
[2019-11-10] MEDS: levETIRAcetam 500 MG in NS 100 ML IV SCH ×2 (08:14→21:18)
[2019-11-10] MEDS: CHOLECALCIFEROL (VITAMIN D3) 2,000 UNIT TABLET PO SCH (08:22)
[2019-11-10] MEDS: methylPREDNISolone SOD SUCC 40 MG/ML VIAL IVP SCH ×2 (08:23→21:18)
[2019-11-10] MEDS: DESMOPRESSIN ACETATE 4 MCG/ML AMP IVP SCH ×2 (08:24→21:18)
[2019-11-10] MEDS: CEFEPIME 0.5 GM in D5W 50 ML IV SCH ×2 (09:00→21:18)
[2019-11-10] MEDS: BALSAM PERU/CASTOR OIL 60 GM OINT...G. TP SCH (09:00)
[2019-11-10 12:11] LABS: C-REACTIVE PROTEIN QUANT 1.8 mg/dL (0-0.5)
[2019-11-10] MEDS: INSULIN LISPRO SLIDING SCALE 100 UNITS/ML VIAL (humaLOG) SUBCUT PRN (12:41)
[2019-11-10] MEDS: FAMOTIDINE PF 20 MG/2 ML VIAL IVP SCH (17:21)
[2019-11-11] VITALS (28 sets, daily range): BP systolic 109–134
[2019-11-11] MEDS: VANCOMYCIN HCL 1 GM/NS PREMIX 250 ML IV SCH ×2 (02:14→14:00)
[2019-11-11] MEDS: INSULIN LISPRO SLIDING SCALE 100 UNITS/ML VIAL (humaLOG) SUBCUT PRN ×4 (06:09→23:41)
[2019-11-11 06:33] LABS: C-REACTIVE PROTEIN QUANT 1.2 mg/dL (0-0.5); CALCIUM 9.4 mg/dL (8.4-11.0); CREATININE 1.71 mg/dL (0.55-1.30); POTASSIUM 5.3 mmol/L (3.5-5.1)
[2019-11-11 06:38] LABS: BASOPHILS % (AUTO) 0.2 % (0.0-2.0); EOSINOPHILS % (AUTO) 0.2 % (0.0-4.0); HEMOGLOBIN 9.4 g/dL (14.0-18.0); LYMPHOCYTES # (AUTO) 1.3 K/uL (1.0-5.5); LYMPHOCYTES % (AUTO) 12.5 % (20.5-51.5); MEAN CORPUSCULAR HEMOGLOBIN 31 pg (27-31); MEAN CORPUSCULAR HGB CONC 32 % (32-36); MEAN CORPUSCULAR VOLUME 95 fL (79.0-98.0); MONOCYTES % (AUTO) 9.6 % (1.7-9.3); NEUTROPHILS # (AUTO) 8.1 K/uL (1.8-7.7); NEUTROPHILS % (AUTO) 77.5 % (40.0-70.0); PLATELET COUNT (AUTO) 150 K/uL (130-430); RED BLOOD CELL COUNT(AUTO) 3.04 MIL/uL (4.2-6.2); RED CELL DISTRIBUTION WIDTH 16.2 % (9.0-15.0); WHITE BLOOD COUNT (AUTO) 10.5 K/uL (4.8-10.8)
[2019-11-11] MEDS: ALBUTEROL MDI INHALATION 8 GM INH INH SCH ×3 (07:12→15:13)
[2019-11-11] MEDS: CEFEPIME 0.5 GM in D5W 50 ML IV SCH ×2 (08:25→20:33)
[2019-11-11] MEDS: levETIRAcetam 500 MG in NS 100 ML IV SCH ×2 (08:25→20:33)
[2019-11-11] MEDS: ASCORBIC ACID 500 MG TABLET PO SCH (08:26)
[2019-11-11] MEDS: BALSAM PERU/CASTOR OIL 60 GM OINT...G. TP SCH (08:26)
[2019-11-11] MEDS: methylPREDNISolone SOD SUCC 40 MG/ML VIAL IVP SCH ×2 (08:26→20:33)
[2019-11-11] MEDS ORDERED: SODIUM POLYSTYRENE SULFONATE 15 GM/60 ML UDBTL PO ONE (08:30)
[2019-11-11] MEDS: DESMOPRESSIN ACETATE 4 MCG/ML AMP IVP SCH ×2 (08:33→20:34)
[2019-11-11] MEDS: CHOLECALCIFEROL (VITAMIN D3) 2,000 UNIT TABLET PO SCH (08:34)
[2019-11-11] MEDS: D5W 1,000 ML IV SCH (10:30)
[2019-11-11] MEDS: FAMOTIDINE PF 20 MG/2 ML VIAL IVP SCH (17:35)
[2019-11-11] MEDS: HEPARIN SODIUM,PORCINE 5000 UNITS/ML VIAL SUBCUT SCH (20:32)
[2019-11-12] VITALS (34 sets, daily range): BP systolic 123–151
[2019-11-12 06:55] LABS: CALCIUM 9.3 mg/dL (8.4-11.0); CREATININE 1.58 mg/dL (0.55-1.30); POTASSIUM 5.1 mmol/L (3.5-5.1)
[2019-11-12] MEDS: D5W 1,000 ML IV SCH (07:03)
[2019-11-12] MEDS: CEFEPIME 0.5 GM in D5W 50 ML IV SCH ×2 (07:57→21:09)
[2019-11-12] MEDS: ALBUTEROL MDI INHALATION 8 GM INH INH SCH ×3 (08:03→20:06)
[2019-11-12] MEDS: HEPARIN SODIUM,PORCINE 5000 UNITS/ML VIAL SUBCUT SCH ×2 (08:59→21:13)
[2019-11-12] MEDS: methylPREDNISolone SOD SUCC 40 MG/ML VIAL IVP SCH ×2 (08:59→21:10)
[2019-11-12] MEDS: DESMOPRESSIN ACETATE 4 MCG/ML AMP IVP SCH ×2 (09:00→21:10)
[2019-11-12] MEDS: CHOLECALCIFEROL (VITAMIN D3) 2,000 UNIT TABLET PO SCH (09:02)
[2019-11-12] MEDS: ASCORBIC ACID 500 MG TABLET PO SCH (09:02)
[2019-11-12] MEDS: levETIRAcetam 500 MG in NS 100 ML IV SCH ×2 (09:04→21:09)
[2019-11-12] MEDS: BALSAM PERU/CASTOR OIL 60 GM OINT...G. TP SCH (09:04)
[2019-11-12] MEDS: INSULIN LISPRO SLIDING SCALE 100 UNITS/ML VIAL (humaLOG) SUBCUT PRN (12:00)
[2019-11-12] MEDS: FAMOTIDINE PF 20 MG/2 ML VIAL IVP SCH (18:04)
[2019-11-12] MEDS: VANCOMYCIN HCL 1,250 MG in NS 250 ML IV SCH (20:16)
[2019-11-13] VITALS (33 sets, daily range): BP systolic 113–144
[2019-11-13] MEDS: INSULIN LISPRO SLIDING SCALE 100 UNITS/ML VIAL (humaLOG) SUBCUT PRN ×2 (00:32→06:40)
[2019-11-13] MEDS: D5W 1,000 ML IV SCH ×2 (03:04→23:32)
[2019-11-13 06:18] LABS: BASOPHILS % (AUTO) 0.3 % (0.0-2.0); EOSINOPHILS % (AUTO) 0.4 % (0.0-4.0); HEMATOCRIT 24.4 % (36-54); HEMOGLOBIN 7.9 g/dL (14.0-18.0); LYMPHOCYTES # (AUTO) 1.4 K/uL (1.0-5.5); MEAN CORPUSCULAR HEMOGLOBIN 30 pg (27-31); MEAN CORPUSCULAR HGB CONC 32 % (32-36); MEAN CORPUSCULAR VOLUME 94 fL (79.0-98.0); MONOCYTES # (AUTO) 0.7 K/uL (0.0-1.0); MONOCYTES % (AUTO) 7.5 % (1.7-9.3); NEUTROPHILS # (AUTO) 7.1 K/uL (1.8-7.7); NEUTROPHILS % (AUTO) 76.8 % (40.0-70.0); PLATELET COUNT (AUTO) 150 K/uL (130-430); RED BLOOD CELL COUNT(AUTO) 2.59 MIL/uL (4.2-6.2); RED CELL DISTRIBUTION WIDTH 15.8 % (9.0-15.0); WHITE BLOOD COUNT (AUTO) 9.2 K/uL (4.8-10.8)
[2019-11-13 06:43] LABS: ALBUMIN 2.2 g/dL (3.4-4.8); CALCIUM 9.4 mg/dL (8.4-11.0); CREATININE 1.44 mg/dL (0.55-1.30); POTASSIUM 5.2 mmol/L (3.5-5.1); TOTAL BILIRUBIN 0.5 mg/dL (0.0-1.0)
[2019-11-13] MEDS: ALBUTEROL MDI INHALATION 8 GM INH INH SCH ×3 (08:29→19:33)
[2019-11-13] MEDS: levETIRAcetam 500 MG in NS 100 ML IV SCH ×2 (09:07→21:16)
[2019-11-13] MEDS: methylPREDNISolone SOD SUCC 40 MG/ML VIAL IVP SCH (09:11)
[2019-11-13] MEDS: HEPARIN SODIUM,PORCINE 5000 UNITS/ML VIAL SUBCUT SCH ×2 (09:12→21:17)
[2019-11-13] MEDS: BALSAM PERU/CASTOR OIL 60 GM OINT...G. TP SCH (09:12)
[2019-11-13] MEDS: CEFEPIME 0.5 GM in D5W 50 ML IV SCH ×2 (09:14→21:16)
[2019-11-13] MEDS: DESMOPRESSIN ACETATE 4 MCG/ML AMP IVP SCH ×2 (09:27→21:16)
[2019-11-13] MEDS: ASCORBIC ACID 500 MG TABLET PO SCH (09:30)
[2019-11-13] MEDS: CHOLECALCIFEROL (VITAMIN D3) 2,000 UNIT TABLET PO SCH (09:32)
[2019-11-13] MEDS: FAMOTIDINE PF 20 MG/2 ML VIAL IVP SCH (17:38)
[2019-11-13] MEDS: VANCOMYCIN HCL 1,250 MG in NS 250 ML IV SCH (19:50)
[2019-11-14] VITALS (36 sets, daily range): BP systolic 110–131
[2019-11-14 06:25] LABS: BASOPHILS % (AUTO) 0.5 % (0.0-2.0); EOSINOPHILS # (AUTO) 0.2 K/uL (0.0-0.4); EOSINOPHILS % (AUTO) 2.3 % (0.0-4.0); HEMATOCRIT 23.4 % (36-54); HEMOGLOBIN 7.7 g/dL (14.0-18.0); LYMPHOCYTES # (AUTO) 1.9 K/uL (1.0-5.5); LYMPHOCYTES % (AUTO) 22.1 % (20.5-51.5); MEAN CORPUSCULAR HEMOGLOBIN 31 pg (27-31); MEAN CORPUSCULAR HGB CONC 33 % (32-36); MEAN CORPUSCULAR VOLUME 94 fL (79.0-98.0); MONOCYTES # (AUTO) 0.6 K/uL (0.0-1.0); NEUTROPHILS # (AUTO) 5.9 K/uL (1.8-7.7); NEUTROPHILS % (AUTO) 68.1 % (40.0-70.0); PLATELET COUNT (AUTO) 144 K/uL (130-430); RED BLOOD CELL COUNT(AUTO) 2.49 MIL/uL (4.2-6.2); RED CELL DISTRIBUTION WIDTH 15.4 % (9.0-15.0); WHITE BLOOD COUNT (AUTO) 8.7 K/uL (4.8-10.8)
[2019-11-14 07:40] LABS: PROTHROMBIN TIME 10.2 SECS (9.5-12.5)
[2019-11-14] MEDS: ALBUTEROL MDI INHALATION 8 GM INH INH SCH ×2 (08:05→11:35)
[2019-11-14 08:21] LABS: ALBUMIN 2.2 g/dL (3.4-4.8); CALCIUM 9.2 mg/dL (8.4-11.0); CREATININE 1.3 mg/dL (0.55-1.30); POTASSIUM 4.3 mmol/L (3.5-5.1); TOTAL BILIRUBIN 0.6 mg/dL (0.0-1.0)
[2019-11-14] MEDS: levETIRAcetam 500 MG in NS 100 ML IV SCH ×2 (09:06→21:22)
[2019-11-14] MEDS: ASCORBIC ACID 500 MG TABLET PO SCH (09:07)
[2019-11-14] MEDS: CHOLECALCIFEROL (VITAMIN D3) 2,000 UNIT TABLET PO SCH (09:07)
[2019-11-14] MEDS: methylPREDNISolone SOD SUCC 40 MG/ML VIAL IVP SCH (09:07)
[2019-11-14] MEDS: HEPARIN SODIUM,PORCINE 5000 UNITS/ML VIAL SUBCUT SCH (09:08)
[2019-11-14] MEDS: BALSAM PERU/CASTOR OIL 60 GM OINT...G. TP SCH (09:09)
[2019-11-14] MEDS: DESMOPRESSIN ACETATE 4 MCG/ML AMP IVP SCH ×2 (09:09→21:25)
[2019-11-14] MEDS: D5W 1,000 ML IV SCH (17:15)
[2019-11-14] MEDS: FAMOTIDINE PF 20 MG/2 ML VIAL IVP SCH (17:15)
[2019-11-14] MEDS: CEFEPIME 0.5 GM in D5W 50 ML IV SCH (21:24)
[2019-11-14] MEDS ORDERED: HEPARIN SODIUM,PORCINE 5000 UNITS/ML VIAL ONE (21:26)
[2019-11-15] VITALS (31 sets, daily range): BP systolic 112–166
[2019-11-15 06:27] LABS: BASOPHILS # (AUTO) 0.1 K/uL (0.0-0.2); BASOPHILS % (AUTO) 0.5 % (0.0-2.0); EOSINOPHILS # (AUTO) 0.3 K/uL (0.0-0.4); EOSINOPHILS % (AUTO) 2.8 % (0.0-4.0); HEMATOCRIT 23.8 % (36-54); HEMOGLOBIN 8.1 g/dL (14.0-18.0); LYMPHOCYTES # (AUTO) 1.8 K/uL (1.0-5.5); LYMPHOCYTES % (AUTO) 17.7 % (20.5-51.5); MEAN CORPUSCULAR HEMOGLOBIN 32 pg (27-31); MEAN CORPUSCULAR HGB CONC 34 % (32-36); MEAN CORPUSCULAR VOLUME 93 fL (79.0-98.0); MONOCYTES # (AUTO) 0.6 K/uL (0.0-1.0); NEUTROPHILS # (AUTO) 7.5 K/uL (1.8-7.7); PLATELET COUNT (AUTO) 166 K/uL (130-430); RED BLOOD CELL COUNT(AUTO) 2.56 MIL/uL (4.2-6.2); WHITE BLOOD COUNT (AUTO) 10.3 K/uL (4.8-10.8)
[2019-11-15 06:42] LABS: CALCIUM 9.1 mg/dL (8.4-11.0); CREATININE 1.26 mg/dL (0.55-1.30); POTASSIUM 4.2 mmol/L (3.5-5.1)
[2019-11-15] MEDS: levETIRAcetam 500 MG in NS 100 ML IV SCH ×2 (08:08→21:39)
[2019-11-15] MEDS: ALBUTEROL MDI INHALATION 8 GM INH INH SCH ×4 (08:15→22:36)
[2019-11-15] MEDS: CEFEPIME 0.5 GM in D5W 50 ML IV SCH ×2 (09:07→21:38)
[2019-11-15] MEDS: DESMOPRESSIN ACETATE 4 MCG/ML AMP IVP SCH ×2 (09:07→21:40)
[2019-11-15] MEDS: methylPREDNISolone SOD SUCC 40 MG/ML VIAL IVP SCH (09:14)
[2019-11-15] MEDS: CHOLECALCIFEROL (VITAMIN D3) 2,000 UNIT TABLET PO SCH (09:15)
[2019-11-15] MEDS: ASCORBIC ACID 500 MG TABLET PO SCH (09:15)
[2019-11-15] MEDS: VANCOMYCIN HCL 1,000 MG in NS 250 ML IV SCH (11:03)
[2019-11-15] MEDS: D5W 1,000 ML IV SCH (14:15)
[2019-11-15] MEDS: INSULIN LISPRO SLIDING SCALE 100 UNITS/ML VIAL (humaLOG) SUBCUT PRN ×2 (17:03→18:00)
[2019-11-15] MEDS: BALSAM PERU/CASTOR OIL 60 GM OINT...G. TP SCH (18:00)
[2019-11-15] MEDS: FAMOTIDINE PF 20 MG/2 ML VIAL IVP SCH (18:00)
[2019-11-16] VITALS (30 sets, daily range): BP systolic 119–176
[2019-11-16 06:10] LABS: BASOPHILS # (AUTO) 0.1 K/uL (0.0-0.2); BASOPHILS % (AUTO) 0.6 % (0.0-2.0); EOSINOPHILS # (AUTO) 0.2 K/uL (0.0-0.4); EOSINOPHILS % (AUTO) 1.9 % (0.0-4.0); HEMATOCRIT 24.8 % (36-54); HEMOGLOBIN 8.3 g/dL (14.0-18.0); LYMPHOCYTES # (AUTO) 1.5 K/uL (1.0-5.5); LYMPHOCYTES % (AUTO) 14.4 % (20.5-51.5); MEAN CORPUSCULAR HEMOGLOBIN 31 pg (27-31); MEAN CORPUSCULAR HGB CONC 33 % (32-36); MEAN CORPUSCULAR VOLUME 94 fL (79.0-98.0); MONOCYTES # (AUTO) 0.7 K/uL (0.0-1.0); MONOCYTES % (AUTO) 6.9 % (1.7-9.3); NEUTROPHILS # (AUTO) 8.2 K/uL (1.8-7.7); NEUTROPHILS % (AUTO) 76.2 % (40.0-70.0); PLATELET COUNT (AUTO) 151 K/uL (130-430); RED BLOOD CELL COUNT(AUTO) 2.64 MIL/uL (4.2-6.2); RED CELL DISTRIBUTION WIDTH 15.8 % (9.0-15.0); WHITE BLOOD COUNT (AUTO) 10.7 K/uL (4.8-10.8)
[2019-11-16 06:18] LABS: CALCIUM 9.5 mg/dL (8.4-11.0); CREATININE 1.17 mg/dL (0.55-1.30); POTASSIUM 4.9 mmol/L (3.5-5.1)
[2019-11-16] MEDS: ALBUTEROL MDI INHALATION 8 GM INH INH SCH ×3 (07:42→15:42)
[2019-11-16] MEDS: levETIRAcetam 500 MG in NS 100 ML IV SCH ×2 (09:00→21:35)
[2019-11-16] MEDS: methylPREDNISolone SOD SUCC 40 MG/ML VIAL IVP SCH (09:01)
[2019-11-16] MEDS: ASCORBIC ACID 500 MG TABLET PO SCH (09:02)
[2019-11-16] MEDS: CHOLECALCIFEROL (VITAMIN D3) 2,000 UNIT TABLET PO SCH (09:02)
[2019-11-16] MEDS: BALSAM PERU/CASTOR OIL 60 GM OINT...G. TP SCH (09:03)
[2019-11-16] MEDS: CEFEPIME 0.5 GM in D5W 50 ML IV SCH ×2 (10:57→21:35)
[2019-11-16] MEDS: DESMOPRESSIN ACETATE 4 MCG/ML AMP IVP SCH ×2 (10:58→21:36)
[2019-11-16] MEDS: VANCOMYCIN HCL 1,000 MG in NS 250 ML IV SCH (12:13)
[2019-11-16] MEDS: D5W 1,000 ML IV SCH (12:21)
[2019-11-16] MEDS: FAMOTIDINE PF 20 MG/2 ML VIAL IVP SCH (17:33)
[2019-11-17] VITALS (27 sets, daily range): BP systolic 92–144
[2019-11-17 06:50] LABS: BASOPHILS % (AUTO) 0.2 % (0.0-2.0); EOSINOPHILS # (AUTO) 0.2 K/uL (0.0-0.4); EOSINOPHILS % (AUTO) 1.5 % (0.0-4.0); HEMATOCRIT 25.5 % (36-54); HEMOGLOBIN 8.3 g/dL (14.0-18.0); LYMPHOCYTES # (AUTO) 1.4 K/uL (1.0-5.5); LYMPHOCYTES % (AUTO) 11.8 % (20.5-51.5); MEAN CORPUSCULAR HEMOGLOBIN 31 pg (27-31); MEAN CORPUSCULAR HGB CONC 33 % (32-36); MEAN CORPUSCULAR VOLUME 94 fL (79.0-98.0); MONOCYTES # (AUTO) 0.9 K/uL (0.0-1.0); MONOCYTES % (AUTO) 7.8 % (1.7-9.3); NEUTROPHILS # (AUTO) 9.6 K/uL (1.8-7.7); NEUTROPHILS % (AUTO) 78.7 % (40.0-70.0); PLATELET COUNT (AUTO) 151 K/uL (130-430); RED BLOOD CELL COUNT(AUTO) 2.71 MIL/uL (4.2-6.2); RED CELL DISTRIBUTION WIDTH 16.4 % (9.0-15.0); WHITE BLOOD COUNT (AUTO) 12.2 K/uL (4.8-10.8)
[2019-11-17 07:24] LABS: CALCIUM 9.4 mg/dL (8.4-11.0); CREATININE 1.17 mg/dL (0.55-1.30); POTASSIUM 4.2 mmol/L (3.5-5.1)
[2019-11-17] MEDS: VANCOMYCIN HCL 1,000 MG in NS 250 ML IV SCH (10:07)
[2019-11-17] MEDS: CEFEPIME 0.5 GM in D5W 50 ML IV SCH ×2 (10:08→20:39)
[2019-11-17] MEDS: levETIRAcetam 500 MG in NS 100 ML IV SCH ×2 (10:08→20:37)
[2019-11-17] MEDS: D5W 1,000 ML IV SCH (10:09)
[2019-11-17] MEDS: DESMOPRESSIN ACETATE 4 MCG/ML AMP IVP SCH ×2 (10:10→20:38)
[2019-11-17] MEDS: methylPREDNISolone SOD SUCC 40 MG/ML VIAL IVP SCH (10:11)
[2019-11-17] MEDS: CHOLECALCIFEROL (VITAMIN D3) 2,000 UNIT TABLET PO SCH (10:11)
[2019-11-17] MEDS: ASCORBIC ACID 500 MG TABLET PO SCH (10:11)
[2019-11-17] MEDS: ALBUTEROL MDI INHALATION 8 GM INH INH SCH (11:00)
[2019-11-17] MEDS: BALSAM PERU/CASTOR OIL 60 GM OINT...G. TP SCH (16:00)
[2019-11-17] MEDS: FAMOTIDINE PF 20 MG/2 ML VIAL IVP SCH (18:20)
[2019-11-17] MEDS: INSULIN LISPRO SLIDING SCALE 100 UNITS/ML VIAL (humaLOG) SUBCUT PRN (18:21)
[2019-11-18] VITALS (33 sets, daily range): BP systolic 103–169
[2019-11-18 08:38] LABS: CALCIUM 9.5 mg/dL (8.4-11.0); CREATININE 1.11 mg/dL (0.55-1.30); POTASSIUM 4.4 mmol/L (3.5-5.1)
[2019-11-18] MEDS: DESMOPRESSIN ACETATE 4 MCG/ML AMP IVP SCH ×2 (08:45→20:43)
[2019-11-18] MEDS: levETIRAcetam 500 MG in NS 100 ML IV SCH ×2 (08:45→20:45)
[2019-11-18] MEDS: ASCORBIC ACID 500 MG TABLET PO SCH (08:51)
[2019-11-18] MEDS: methylPREDNISolone SOD SUCC 40 MG/ML VIAL IVP SCH (08:51)
[2019-11-18] MEDS: CHOLECALCIFEROL (VITAMIN D3) 2,000 UNIT TABLET PO SCH (08:52)
[2019-11-18] MEDS: D5W 1,000 ML IV SCH ×2 (09:30→21:54)
[2019-11-18] MEDS: CEFEPIME 0.5 GM in D5W 50 ML IV SCH ×2 (09:30→20:44)
[2019-11-18] MEDS: INSULIN LISPRO SLIDING SCALE 100 UNITS/ML VIAL (humaLOG) SUBCUT PRN (12:55)
[2019-11-18] MEDS: ALBUTEROL MDI INHALATION 8 GM INH INH SCH ×4 (13:08→19:00)
[2019-11-18] MEDS: BALSAM PERU/CASTOR OIL 60 GM OINT...G. TP SCH (16:36)
[2019-11-18] MEDS: FAMOTIDINE PF 20 MG/2 ML VIAL IVP SCH (18:45)
[2019-11-19] VITALS (34 sets, daily range): BP systolic 106–144
[2019-11-19 06:38] LABS: BASOPHILS # (AUTO) 0.1 K/uL (0.0-0.2); BASOPHILS % (AUTO) 0.7 % (0.0-2.0); EOSINOPHILS # (AUTO) 0.3 K/uL (0.0-0.4); EOSINOPHILS % (AUTO) 2.5 % (0.0-4.0); HEMATOCRIT 22.9 % (36-54); HEMOGLOBIN 7.8 g/dL (14.0-18.0); LYMPHOCYTES # (AUTO) 1.5 K/uL (1.0-5.5); LYMPHOCYTES % (AUTO) 13.9 % (20.5-51.5); MEAN CORPUSCULAR HEMOGLOBIN 32 pg (27-31); MEAN CORPUSCULAR HGB CONC 34 % (32-36); MEAN CORPUSCULAR VOLUME 94 fL (79.0-98.0); MONOCYTES # (AUTO) 0.9 K/uL (0.0-1.0); NEUTROPHILS # (AUTO) 7.8 K/uL (1.8-7.7); NEUTROPHILS % (AUTO) 73.9 % (40.0-70.0); PLATELET COUNT (AUTO) 187 K/uL (130-430); RED BLOOD CELL COUNT(AUTO) 2.43 MIL/uL (4.2-6.2); RED CELL DISTRIBUTION WIDTH 16.2 % (9.0-15.0); WHITE BLOOD COUNT (AUTO) 10.5 K/uL (4.8-10.8)
[2019-11-19 06:40] LABS: CALCIUM 9.3 mg/dL (8.4-11.0); CREATININE 1.13 mg/dL (0.55-1.30); POTASSIUM 4.3 mmol/L (3.5-5.1)
[2019-11-19] MEDS: ALBUTEROL MDI INHALATION 8 GM INH INH SCH ×4 (08:04→19:45)
[2019-11-19] MEDS: ASCORBIC ACID 500 MG TABLET PO SCH (08:19)
[2019-11-19] MEDS: DESMOPRESSIN ACETATE 4 MCG/ML AMP IVP SCH ×2 (08:19→21:07)
[2019-11-19] MEDS: CEFEPIME 0.5 GM in D5W 50 ML IV SCH ×2 (08:19→21:06)
[2019-11-19] MEDS: BALSAM PERU/CASTOR OIL 60 GM OINT...G. TP SCH (08:20)
[2019-11-19] MEDS: CHOLECALCIFEROL (VITAMIN D3) 2,000 UNIT TABLET PO SCH (08:20)
[2019-11-19] MEDS: levETIRAcetam 500 MG in NS 100 ML IV SCH ×2 (09:11→21:06)
[2019-11-19] MEDS: FAMOTIDINE PF 20 MG/2 ML VIAL IVP SCH (17:36)
[2019-11-19] MEDS: D5W 1,000 ML IV SCH (17:37)
[2019-11-20] VITALS (34 sets, daily range): BP systolic 109–149
[2019-11-20] MEDS: VANCOMYCIN HCL 750 MG in NS 250 ML IV SCH (06:00)
[2019-11-20 06:55] LABS: BASOPHILS % (AUTO) 0.4 % (0.0-2.0); EOSINOPHILS # (AUTO) 0.2 K/uL (0.0-0.4); EOSINOPHILS % (AUTO) 1.7 % (0.0-4.0); HEMATOCRIT 25.1 % (36-54); HEMOGLOBIN 8.2 g/dL (14.0-18.0); LYMPHOCYTES # (AUTO) 1.3 K/uL (1.0-5.5); MEAN CORPUSCULAR HEMOGLOBIN 31 pg (27-31); MEAN CORPUSCULAR HGB CONC 33 % (32-36); MEAN CORPUSCULAR VOLUME 94 fL (79.0-98.0); MONOCYTES # (AUTO) 0.9 K/uL (0.0-1.0); MONOCYTES % (AUTO) 9.2 % (1.7-9.3); NEUTROPHILS # (AUTO) 7.5 K/uL (1.8-7.7); NEUTROPHILS % (AUTO) 75.7 % (40.0-70.0); PLATELET COUNT (AUTO) 150 K/uL (130-430); RED BLOOD CELL COUNT(AUTO) 2.68 MIL/uL (4.2-6.2); RED CELL DISTRIBUTION WIDTH 15.8 % (9.0-15.0); WHITE BLOOD COUNT (AUTO) 9.9 K/uL (4.8-10.8)
[2019-11-20] MEDS: levETIRAcetam 500 MG in NS 100 ML IV SCH ×2 (08:53→20:33)
[2019-11-20] MEDS: DESMOPRESSIN ACETATE 4 MCG/ML AMP IVP SCH ×2 (08:54→21:57)
[2019-11-20] MEDS: CHOLECALCIFEROL (VITAMIN D3) 2,000 UNIT TABLET PO SCH (08:54)
[2019-11-20] MEDS: ASCORBIC ACID 500 MG TABLET PO SCH (08:54)
[2019-11-20] MEDS: CEFEPIME 0.5 GM in D5W 50 ML IV SCH ×2 (08:54→21:57)
[2019-11-20] MEDS: BALSAM PERU/CASTOR OIL 60 GM OINT...G. TP SCH (08:55)
[2019-11-20 09:21] LABS: ALBUMIN 2.1 g/dL (3.4-4.8); CALCIUM 9.6 mg/dL (8.4-11.0); CREATININE 1.1 mg/dL (0.55-1.30); PHOSPHORUS 3.4 mg/dL (2.7-4.5); POTASSIUM 4.1 mmol/L (3.5-5.1); TOTAL BILIRUBIN 0.6 mg/dL (0.0-1.0)
[2019-11-20] MEDS: ALBUTEROL MDI INHALATION 8 GM INH INH SCH ×4 (09:52→19:35)
[2019-11-20] MEDS: D5W 1,000 ML IV SCH (13:56)
[2019-11-20] MEDS: FAMOTIDINE PF 20 MG/2 ML VIAL IVP SCH (17:44)
[2019-11-21] VITALS (32 sets, daily range): BP systolic 110–141
[2019-11-21] MEDS: VANCOMYCIN HCL 750 MG in NS 250 ML IV SCH (06:10)
[2019-11-21] MEDS: ALBUTEROL MDI INHALATION 8 GM INH INH SCH ×4 (08:16→19:30)
[2019-11-21] MEDS: CEFEPIME 0.5 GM in D5W 50 ML IV SCH ×2 (09:06→20:42)
[2019-11-21] MEDS: CHOLECALCIFEROL (VITAMIN D3) 2,000 UNIT TABLET PO SCH (09:08)
[2019-11-21] MEDS: ASCORBIC ACID 500 MG TABLET PO SCH (09:08)
[2019-11-21] MEDS: DESMOPRESSIN ACETATE 4 MCG/ML AMP IVP SCH ×2 (09:09→20:13)
[2019-11-21] MEDS: clonazePAM 0.5 MG TABLET PO SCH ×2 (09:11→20:13)
[2019-11-21] MEDS: D5W 1,000 ML IV SCH (09:16)
[2019-11-21] MEDS: levETIRAcetam 500 MG in NS 100 ML IV SCH ×2 (09:17→20:13)
[2019-11-21 11:28] LABS: BASOPHILS % (AUTO) 0.6 % (0.0-2.0); EOSINOPHILS # (AUTO) 0.1 K/uL (0.0-0.4); EOSINOPHILS % (AUTO) 1.7 % (0.0-4.0); HEMATOCRIT 26.1 % (36-54); HEMOGLOBIN 8.4 g/dL (14.0-18.0); LYMPHOCYTES % (AUTO) 11.9 % (20.5-51.5); MEAN CORPUSCULAR HEMOGLOBIN 31 pg (27-31); MEAN CORPUSCULAR HGB CONC 32 % (32-36); MEAN CORPUSCULAR VOLUME 95 fL (79.0-98.0); MONOCYTES # (AUTO) 0.8 K/uL (0.0-1.0); MONOCYTES % (AUTO) 9.1 % (1.7-9.3); NEUTROPHILS # (AUTO) 6.4 K/uL (1.8-7.7); NEUTROPHILS % (AUTO) 76.7 % (40.0-70.0); PLATELET COUNT (AUTO) 139 K/uL (130-430); RED BLOOD CELL COUNT(AUTO) 2.73 MIL/uL (4.2-6.2); RED CELL DISTRIBUTION WIDTH 16.1 % (9.0-15.0); WHITE BLOOD COUNT (AUTO) 8.4 K/uL (4.8-10.8)
[2019-11-21 11:48] LABS: CALCIUM 9.4 mg/dL (8.4-11.0); CREATININE 1.05 mg/dL (0.55-1.30); POTASSIUM 4.3 mmol/L (3.5-5.1); TOTAL BILIRUBIN 0.6 mg/dL (0.0-1.0)
[2019-11-21] MEDS: BALSAM PERU/CASTOR OIL 60 GM OINT...G. TP SCH (15:15)
[2019-11-21] MEDS: FAMOTIDINE PF 20 MG/2 ML VIAL IVP SCH (18:21)
[2019-11-22] VITALS (29 sets, daily range): BP systolic 105–142
[2019-11-22] MEDS: VANCOMYCIN HCL 750 MG in NS 250 ML IV SCH (05:20)
[2019-11-22 05:57] LABS: BASOPHILS % (AUTO) 0.4 % (0.0-2.0); EOSINOPHILS # (AUTO) 0.2 K/uL (0.0-0.4); EOSINOPHILS % (AUTO) 2.1 % (0.0-4.0); HEMATOCRIT 24.9 % (36-54); LYMPHOCYTES # (AUTO) 1.1 K/uL (1.0-5.5); LYMPHOCYTES % (AUTO) 13.9 % (20.5-51.5); MEAN CORPUSCULAR HEMOGLOBIN 31 pg (27-31); MEAN CORPUSCULAR HGB CONC 32 % (32-36); MEAN CORPUSCULAR VOLUME 95 fL (79.0-98.0); MONOCYTES # (AUTO) 0.8 K/uL (0.0-1.0); MONOCYTES % (AUTO) 9.8 % (1.7-9.3); NEUTROPHILS # (AUTO) 5.8 K/uL (1.8-7.7); NEUTROPHILS % (AUTO) 73.8 % (40.0-70.0); PLATELET COUNT (AUTO) 143 K/uL (130-430); RED BLOOD CELL COUNT(AUTO) 2.62 MIL/uL (4.2-6.2); RED CELL DISTRIBUTION WIDTH 16.1 % (9.0-15.0); WHITE BLOOD COUNT (AUTO) 7.9 K/uL (4.8-10.8)
[2019-11-22 06:03] LABS: CALCIUM 9.2 mg/dL (8.4-11.0); CREATININE 1.06 mg/dL (0.55-1.30); POTASSIUM 4.3 mmol/L (3.5-5.1)
[2019-11-22] MEDS: D5W 1,000 ML IV SCH (06:54)
[2019-11-22] MEDS: CHOLECALCIFEROL (VITAMIN D3) 2,000 UNIT TABLET PO SCH (09:00)
[2019-11-22] MEDS: ALBUTEROL MDI INHALATION 8 GM INH INH SCH ×4 (09:39→19:40)
[2019-11-22] MEDS: levETIRAcetam 500 MG in NS 100 ML IV SCH ×2 (10:21→21:11)
[2019-11-22] MEDS: ASCORBIC ACID 500 MG TABLET PO SCH (10:21)
[2019-11-22] MEDS: clonazePAM 0.5 MG TABLET PO SCH (10:21)
[2019-11-22] MEDS: DESMOPRESSIN ACETATE 4 MCG/ML AMP IVP SCH ×2 (10:23→21:11)
[2019-11-22] MEDS: BALSAM PERU/CASTOR OIL 60 GM OINT...G. TP SCH (10:23)
[2019-11-22] MEDS: FAMOTIDINE PF 20 MG/2 ML VIAL IVP SCH (18:08)
[2019-11-23] VITALS (34 sets, daily range): BP systolic 101–143
[2019-11-23 05:36] LABS: HEMOGLOBIN 7.1 g/dL (14.0-18.0); MEAN CORPUSCULAR HEMOGLOBIN 31 pg (27-31); MONOCYTES # (AUTO) 0.6 K/uL (0.0-1.0); RED BLOOD CELL COUNT(AUTO) 2.31 MIL/uL (4.2-6.2); WHITE BLOOD COUNT (AUTO) 5.9 K/uL (4.8-10.8)
[2019-11-23 06:05] LABS: CREATININE 1.04 mg/dL (0.55-1.30); POTASSIUM 4.2 mmol/L (3.5-5.1)
[2019-11-23 06:27] LABS: BASOPHILS % (AUTO) 0.3 % (0.0-2.0); EOSINOPHILS # (AUTO) 0.2 K/uL (0.0-0.4); EOSINOPHILS % (AUTO) 2.6 % (0.0-4.0); LYMPHOCYTES # (AUTO) 1.1 K/uL (1.0-5.5); LYMPHOCYTES % (AUTO) 18.7 % (20.5-51.5); MEAN CORPUSCULAR HGB CONC 33 % (32-36); MEAN CORPUSCULAR VOLUME 94 fL (79.0-98.0); MONOCYTES % (AUTO) 10.1 % (1.7-9.3); NEUTROPHILS % (AUTO) 68.3 % (40.0-70.0); PLATELET COUNT (AUTO) 122 K/uL (130-430); RED CELL DISTRIBUTION WIDTH 15.9 % (9.0-15.0)
[2019-11-23 07:14] LABS: HEMATOCRIT 21.6 % (36-54)
[2019-11-23] MEDS: ALBUTEROL MDI INHALATION 8 GM INH INH SCH ×4 (07:59→19:39)
[2019-11-23] MEDS: clonazePAM 0.5 MG TABLET PO SCH (08:42)
[2019-11-23] MEDS: DESMOPRESSIN ACETATE 4 MCG/ML AMP IVP SCH ×2 (08:42→20:57)
[2019-11-23] MEDS: levETIRAcetam 500 MG in NS 100 ML IV SCH ×2 (08:42→20:56)
[2019-11-23] MEDS: CHOLECALCIFEROL (VITAMIN D3) 2,000 UNIT TABLET PO SCH (08:43)
[2019-11-23] MEDS: ASCORBIC ACID 500 MG TABLET PO SCH (08:43)
[2019-11-23] MEDS: BALSAM PERU/CASTOR OIL 60 GM OINT...G. TP SCH (08:44)
[2019-11-23] MEDS: FAMOTIDINE PF 20 MG/2 ML VIAL IVP SCH (18:09)
[2019-11-24] VITALS: BP_SYST 119
== END 2019-11-24 00:20 | DRG 870 ==
LOC: SED 10:08 → SMU 13:24 → SIC 10-19 21:18
PROVIDERS: ADMIT Internal Medicine; ATTEND Internal Medicine
PROC: 5A1955Z Respiratory Ventilation, Greater than 96 Consecutive Hours (ICD-10-PCS; principal; 2019-10-19)
PROC: 0BH17EZ Insertion of Endotracheal Airway into Trachea, Via Natural or Artificial Opening (ICD-10-PCS; 2019-10-19)
PROC: 0BH17EZ Insertion of Endotracheal Airway into Trachea, Via Natural or Artificial Opening (ICD-10-PCS; 2019-11-04)
PROC: 5A1955Z Respiratory Ventilation, Greater than 96 Consecutive Hours (ICD-10-PCS; 2019-11-04)
PROC: 30233K1 Transfusion of Nonautologous Frozen Plasma into Peripheral Vein, Percutaneous Approach (ICD-10-PCS; 2019-11-05)
DX: A41.9 Sepsis, unspecified organism (principal); U07.1 COVID-19; J12.89 Other viral pneumonia; E43 Unspecified severe protein-calorie malnutrition; J96.21 Acute and chronic respiratory failure with hypoxia; J15.212 Pneumonia due to Methicillin resistant Staphylococcus aureus; G93.41 Metabolic encephalopathy; R65.21 Severe sepsis with septic shock; N17.0 Acute kidney failure with tubular necrosis; G04.90 Encephalitis and encephalomyelitis, unspecified; E23.2 Diabetes insipidus; J44.0 Chronic obstructive pulmonary disease with (acute) lower respiratory infection; J44.1 Chronic obstructive pulmonary disease with (acute) exacerbation; Z99.11 Dependence on respirator [ventilator] status; F31.9 Bipolar disorder, unspecified; D69.6 Thrombocytopenia, unspecified; N18.9 Chronic kidney disease, unspecified; G20 Parkinson's disease; F25.9 Schizoaffective disorder, unspecified; F02.80 Dementia in other diseases classified elsewhere, unspecified severity, without behavioral disturbance, psychotic disturbance, mood disturbance, and anxiety; E86.0 Dehydration; R73.9 Hyperglycemia, unspecified; I12.9 Hypertensive chronic kidney disease with stage 1 through stage 4 chronic kidney disease, or unspecified chronic kidney disease; G25.3 Myoclonus; D64.9 Anemia, unspecified; D72.810 Lymphocytopenia; R13.10 Dysphagia, unspecified; Z68.27 Body mass index [BMI] 27.0-27.9, adult; Z87.891 Personal history of nicotine dependence; Z79.899 Other long term (current) drug therapy; Z98.42 Cataract extraction status, left eye; Z98.41 Cataract extraction status, right eye
CPT/HCPCS: 36415; 36600; 70450-TC; 71045; 76770; 80048; 80053; 80076; 80202-TC; 81000-TC; 82140-TC; 82550-TC; 82728; 82803-TC; 82962; 83036; 83605; 83615-TC; 83735-TC; 83880; 84100-TC; 84443-TC; 84484; 85025; 85379; 85610-TC; 85651-TC; 85730-TC; 86140; 86870; 86886; 86900; 86901; 87040-TC; 87070-TC; 87081; 87186-TC; 87205-TC; 93005; 94002; 94003; 94640; 95816; 96361; 96365; 96366; 96367; 96368; 96372; 96375; 99291; C1751; J0330; J0456; J0692; J0696; J1030; J1100; J1644; J1650; J1815; J1953; J2060; J2250; J2543; J2597; J2704; J3370; J3480; J3490; J7050; J7060; P9059; U0003-CS

== ENCOUNTER 2020-01-15 18:53 | Inpatient (IN) | payer OTHER, MEDICAID, SELFPAY ==
[~2020-01-15] VITALS: Ht 185.4 cm; Wt 78.9 kg
[~2020-01-15 18:53] MED LIST: DDA.1 PO; DIVA-74 PO; DIVA500T2 PO; FINA5TAB3 PO; HYDR12.585 PO; LOSA50TA3 PO; NOR10 PO; QUET300T2 PO; QUET50TA PO; SER100 PO; TERA5CAP4 PO
[2020-01-15 19:03] VITALS: BP_SYST 134
[2020-01-15] MEDS ORDERED: NACL 0.9% 1,000 ML IV ONE (19:45)
[2020-01-15 19:58] LABS: BASOPHILS # (AUTO) 0.1 K/uL (0.0-0.2); BASOPHILS % (AUTO) 0.6 % (0.0-2.0); EOSINOPHILS # (AUTO) 0.7 K/uL (0.0-0.4); EOSINOPHILS % (AUTO) 5.3 % (0.0-4.0); HEMATOCRIT 42.1 % (36-54); HEMOGLOBIN 12.8 g/dL (14.0-18.0); LYMPHOCYTES # (AUTO) 2.6 K/uL (1.0-5.5); LYMPHOCYTES % (AUTO) 21.3 % (20.5-51.5); MEAN CORPUSCULAR HEMOGLOBIN 29 pg (27-31); MEAN CORPUSCULAR HGB CONC 31 % (32-36); MEAN CORPUSCULAR VOLUME 96 fL (79.0-98.0); MONOCYTES # (AUTO) 1.3 K/uL (0.0-1.0); MONOCYTES % (AUTO) 10.2 % (1.7-9.3); NEUTROPHILS # (AUTO) 7.7 K/uL (1.8-7.7); NEUTROPHILS % (AUTO) 62.6 % (40.0-70.0); PLATELET COUNT (AUTO) 159 K/uL (130-430); RED BLOOD CELL COUNT(AUTO) 4.39 MIL/uL (4.2-6.2); RED CELL DISTRIBUTION WIDTH 15.9 % (9.0-15.0); WHITE BLOOD COUNT (AUTO) 12.4 K/uL (4.8-10.8)
[2020-01-15] MEDS ORDERED: cefTRIAXone 1 GM IVPB PREMIX 50 ML IV ONE (20:00)
[2020-01-15] MEDS ORDERED: AZITHROMYCIN 500 MG in NS 250 ML IV ONE (20:00)
[2020-01-15 20:55] LABS: CALCIUM 10.2 mg/dL (8.4-11.0); CREATININE 2.05 mg/dL (0.55-1.30); POTASSIUM 4.7 mmol/L (3.5-5.1)
[2020-01-15 21:09] LABS: TOTAL BILIRUBIN 0.4 mg/dL (0.0-1.0)
[2020-01-15 21:10] LABS: ALBUMIN 2.6 g/dL (3.4-4.8)
[2020-01-15] MEDS ORDERED: 0.45% NACL 1,000 ML IV SCH (21:51)
[2020-01-15] MEDS ORDERED: ACET-73 GT ×2 (22:01)
[2020-01-15] MEDS ORDERED: ACET325T GT (22:01)
[2020-01-15] MEDS ORDERED: POTASSIUM CHLORIDE 20 MEQ TAB.PRT.SR PO PRN (22:15)
[2020-01-15] MEDS ORDERED: MULT-1189 GT (22:15)
[2020-01-15] MEDS ORDERED: DOCUSATE SODIUM 100 MG CAPSULE PO PRN (22:15)
[2020-01-15] MEDS ORDERED: ARGI1POW13 GT (22:15)
[2020-01-15] MEDS ORDERED: DOCU-144 GT (22:15)
[2020-01-15] MEDS ORDERED: APIX2.5T GT (22:15)
[2020-01-15] MEDS ORDERED: CLON0.5T4 GT (22:15)
[2020-01-15] MEDS ORDERED: ACETAMINOPHEN 325 MG TABLET PO PRN (22:15)
[2020-01-15] MEDS ORDERED: ZINC220T4 GT (22:15)
[2020-01-15] MEDS ORDERED: MOM GT (22:15)
[2020-01-15] MEDS ORDERED: ONDANSETRON HCL 4 MG/2 ML VIAL IVP PRN (22:15)
[2020-01-15] MEDS ORDERED: MORPHINE 2 MG/ML INJ. SYRINGE IVP PRN ×2 (22:15)
[2020-01-15] MEDS ORDERED: ZOLPIDEM TARTRATE 5 MG TABLET PO PRN (22:15)
[2020-01-15] MEDS ORDERED: IPRA12.9 INH (22:15)
[2020-01-15] MEDS ORDERED: FAMO-132 GT (22:15)
[2020-01-15] MEDS ORDERED: LEVE500S9 GT (22:15)
[2020-01-15] MEDS ORDERED: BISA10SU61 RC (22:15)
[2020-01-15] MEDS ORDERED: ALBMDI INH (22:15)
[2020-01-15] MEDS ORDERED: CHOL500013 GT (22:15)
[2020-01-15] MEDS ORDERED: INSU100V42 (22:15)
[2020-01-15] MEDS ORDERED: ASCO500T20 GT (22:15)
[2020-01-15] MEDS ORDERED: LORazepam 2 MG/ML VIAL IVP PRN (22:15)
[2020-01-15] MEDS ORDERED: MAGNESIUM SULFATE 50 ML IV PRN (22:15)
[2020-01-15] MEDS ORDERED: MUPIROCIN 2% TOPICAL OINTMENT 22 GM NS PRN (22:15)
[2020-01-15] MEDS ORDERED: SENN8.6T19 GT (22:15)
[2020-01-15 22:38] LABS: BILIRUBIN,URINE NEGATIVE (NEGATIVE); BLOOD, URINE 1+ (NEGATIVE); COLOR,URINE YELLOW (YELLOW); GLUCOSE,URINE NEGATIVE (NEGATIVE); KETONES,URINE NEGATIVE (NEGATIVE); LEUKOCYTE ESTERASE ,URINE 3+ (NEGATIVE); NITRITE, URINE NEGATIVE (NEGATIVE); PROTEIN URINE 1+ (NEGATIVE); UROBILINOGEN,URINE 0.2 (0.2-1.0)
[2020-01-15 23:02] LABS: CLARITY/URINE HAZY (CLEAR)
[2020-01-15 23:09] LABS: BACTERIA,URINE MODERATE /HPF (None Seen); WBC,URINE >100 /HPF (0-3)
[2020-01-15 23:10] LABS: MUCUS,URINE None Seen /LPF (None Seen)
[2020-01-15 23:40] VITALS: BP_SYST 152
[2020-01-16 07:07] LABS: BASOPHILS # (AUTO) 0.1 K/uL (0.0-0.2); BASOPHILS % (AUTO) 0.7 % (0.0-2.0); EOSINOPHILS # (AUTO) 0.3 K/uL (0.0-0.4); EOSINOPHILS % (AUTO) 3.3 % (0.0-4.0); HEMATOCRIT 41.5 % (36-54); LYMPHOCYTES # (AUTO) 2.2 K/uL (1.0-5.5); MEAN CORPUSCULAR HEMOGLOBIN 30 pg (27-31); MEAN CORPUSCULAR HGB CONC 31 % (32-36); MEAN CORPUSCULAR VOLUME 94 fL (79.0-98.0); MONOCYTES # (AUTO) 0.9 K/uL (0.0-1.0); MONOCYTES % (AUTO) 8.7 % (1.7-9.3); NEUTROPHILS # (AUTO) 6.7 K/uL (1.8-7.7); NEUTROPHILS % (AUTO) 65.3 % (40.0-70.0); PLATELET COUNT (AUTO) 170 K/uL (130-430); RED BLOOD CELL COUNT(AUTO) 4.39 MIL/uL (4.2-6.2); RED CELL DISTRIBUTION WIDTH 15.6 % (9.0-15.0); WHITE BLOOD COUNT (AUTO) 10.2 K/uL (4.8-10.8)
[2020-01-16 07:40] LABS: CALCIUM 10.4 mg/dL (8.4-11.0); CREATININE 1.98 mg/dL (0.55-1.30); POTASSIUM 4.7 mmol/L (3.5-5.1)
[2020-01-16 08:05] VITALS: BP_SYST 154
[2020-01-16] MEDS ORDERED: amLODIPine BESYLATE 10 MG TABLET PO SCH (09:00)
[2020-01-16] MEDS ORDERED: cefTRIAXone 1 GM in D5W 50 ML IV SCH ×4 (09:00)
[2020-01-16] MEDS: METOPROLOL TARTRATE 25 MG TABLET PO SCH ×2 (09:29→22:16)
[2020-01-16] MEDS: DIVALPROEX SODIUM 500 MG TABLET( DEPAKOTE) PO SCH ×2 (09:30→22:12)
[2020-01-16] MEDS: FINASTERIDE 5 MG TABLET (PROSCAR) PO SCH (09:31)
[2020-01-16] MEDS: QUEtiapine FUMARATE 100 MG TABLET PO SCH ×2 (09:31→22:15)
[2020-01-16] MEDS: D5W 1,000 ML IV SCH (09:32)
[2020-01-16] MEDS: LOSARTAN POTASSIUM 50 MG TABLET (COZAAR) PO SCH ×2 (09:32→22:16)
[2020-01-16] MEDS: HEPARIN SODIUM,PORCINE 5,000 UNITS/ML VIAL SUBCUT SCH ×2 (09:35→22:22)
[2020-01-16] MEDS: DESMOPRESSIN 0.1 MG TAB (DDAVP) PO SCH ×2 (12:25→22:10)
[2020-01-16] MEDS: CEFEPIME 1 GM in D5W 50 ML IV SCH (12:26)
[2020-01-16 13:01] VITALS: BP_SYST 120
[2020-01-16 17:02] VITALS: BP_SYST 95
[2020-01-16 19:50] VITALS: BP_SYST 155
[2020-01-16] MEDS ORDERED: TERAZOSIN HCL 5 MG CAPSULE (HYTRIN) PO SCH (21:00)
[2020-01-17] VITALS (23 sets, daily range): BP systolic 59–128
[2020-01-17] MEDS: D5W 1,000 ML IV SCH ×3 (01:03→14:45)
[2020-01-17] MEDS ORDERED: NS 500 ML IV ONE (01:15)
[2020-01-17] MEDS: NOREPINEPHRINE BITARTRATE 4 MG in D5W 246 ML IV PRN ×2 (04:29→18:50)
[2020-01-17] MEDS ORDERED: NOREPINEPHRINE 4 MG/4 ML VIAL IV ONE ×3 (04:34→13:05)
[2020-01-17 06:24] LABS: BASOPHILS % (AUTO) 0.4 % (0.0-2.0); EOSINOPHILS % (AUTO) 0.4 % (0.0-4.0); HEMATOCRIT 30.8 % (36-54); HEMOGLOBIN 9.8 g/dL (14.0-18.0); LYMPHOCYTES % (AUTO) 10.5 % (20.5-51.5); MEAN CORPUSCULAR HEMOGLOBIN 30 pg (27-31); MEAN CORPUSCULAR HGB CONC 32 % (32-36); MEAN CORPUSCULAR VOLUME 94 fL (79.0-98.0); MONOCYTES # (AUTO) 0.6 K/uL (0.0-1.0); MONOCYTES % (AUTO) 5.9 % (1.7-9.3); NEUTROPHILS # (AUTO) 8.3 K/uL (1.8-7.7); NEUTROPHILS % (AUTO) 82.8 % (40.0-70.0); PLATELET COUNT (AUTO) 151 K/uL (130-430); RED BLOOD CELL COUNT(AUTO) 3.29 MIL/uL (4.2-6.2); RED CELL DISTRIBUTION WIDTH 15.3 % (9.0-15.0)
[2020-01-17] MEDS: INSULIN REGULAR, HUMAN 100 UNITS/ML, 10 ML VIAL (humuLIN R) SUBCUT PRN ×3 (06:33→23:36)
[2020-01-17 06:46] LABS: CALCIUM 9.1 mg/dL (8.4-11.0); CREATININE 2.46 mg/dL (0.55-1.30); POTASSIUM 4.6 mmol/L (3.5-5.1)
[2020-01-17] MEDS: BALSAM PERU/CASTOR OIL 60 GM OINT...G. TP SCH (09:00)
[2020-01-17] MEDS: DIVALPROEX SODIUM 500 MG TABLET( DEPAKOTE) PO SCH ×2 (09:15→20:10)
[2020-01-17] MEDS: HEPARIN SODIUM,PORCINE 5,000 UNITS/ML VIAL SUBCUT SCH ×2 (09:15→20:12)
[2020-01-17] MEDS: QUEtiapine FUMARATE 100 MG TABLET PO SCH ×2 (09:15→20:10)
[2020-01-17] MEDS: DESMOPRESSIN 0.1 MG TAB (DDAVP) PO SCH ×2 (10:24→20:10)
[2020-01-17] MEDS: FINASTERIDE 5 MG TABLET (PROSCAR) PO SCH (10:24)
[2020-01-17] MEDS: metroNIDAZOLE 500 mg/NS 100 ML IV SCH ×2 (12:11→23:34)
[2020-01-17] MEDS: CEFEPIME 1 GM in D5W 50 ML IV SCH (13:21)
[2020-01-17] MEDS: VANCOMYCIN HCL 1,000 MG in NS 250 ML IV SCH (13:22)
[2020-01-18] VITALS (24 sets, daily range): BP systolic 98–135
[2020-01-18] MEDS: D5W 1,000 ML IV SCH ×2 (00:58→09:54)
[2020-01-18] MEDS: INSULIN REGULAR, HUMAN 100 UNITS/ML, 10 ML VIAL (humuLIN R) SUBCUT PRN (05:04)
[2020-01-18] MEDS: NOREPINEPHRINE BITARTRATE 4 MG in D5W 246 ML IV PRN (06:14)
[2020-01-18 06:26] LABS: BASOPHILS % (AUTO) 0.4 % (0.0-2.0); EOSINOPHILS # (AUTO) 0.5 K/uL (0.0-0.4); EOSINOPHILS % (AUTO) 6.4 % (0.0-4.0); HEMATOCRIT 29.8 % (36-54); HEMOGLOBIN 9.4 g/dL (14.0-18.0); LYMPHOCYTES % (AUTO) 13.2 % (20.5-51.5); MEAN CORPUSCULAR HEMOGLOBIN 29 pg (27-31); MEAN CORPUSCULAR HGB CONC 32 % (32-36); MEAN CORPUSCULAR VOLUME 92 fL (79.0-98.0); MONOCYTES # (AUTO) 0.6 K/uL (0.0-1.0); MONOCYTES % (AUTO) 7.6 % (1.7-9.3); NEUTROPHILS # (AUTO) 5.5 K/uL (1.8-7.7); NEUTROPHILS % (AUTO) 72.4 % (40.0-70.0); PLATELET COUNT (AUTO) 145 K/uL (130-430); RED BLOOD CELL COUNT(AUTO) 3.23 MIL/uL (4.2-6.2); RED CELL DISTRIBUTION WIDTH 15.2 % (9.0-15.0); WHITE BLOOD COUNT (AUTO) 7.6 K/uL (4.8-10.8)
[2020-01-18 06:57] LABS: CALCIUM 8.9 mg/dL (8.4-11.0); CREATININE 2.08 mg/dL (0.55-1.30); POTASSIUM 3.6 mmol/L (3.5-5.1)
[2020-01-18] MEDS: DIVALPROEX SODIUM 500 MG TABLET( DEPAKOTE) PO SCH ×2 (09:55→22:16)
[2020-01-18] MEDS: QUEtiapine FUMARATE 100 MG TABLET PO SCH ×2 (09:56→22:15)
[2020-01-18] MEDS: DESMOPRESSIN 0.1 MG TAB (DDAVP) PO SCH ×2 (10:00→22:14)
[2020-01-18] MEDS: BALSAM PERU/CASTOR OIL 60 GM OINT...G. TP SCH (10:00)
[2020-01-18] MEDS: HEPARIN SODIUM,PORCINE 5,000 UNITS/ML VIAL SUBCUT SCH ×2 (10:01→22:17)
[2020-01-18] MEDS: FINASTERIDE 5 MG TABLET (PROSCAR) PO SCH (10:01)
[2020-01-18] MEDS: CEFEPIME 1 GM in D5W 50 ML IV SCH (11:59)
[2020-01-18] MEDS: metroNIDAZOLE 500 mg/NS 100 ML IV SCH (12:00)
[2020-01-18] MEDS: VANCOMYCIN HCL 1,000 MG in NS 250 ML IV SCH (14:23)
[2020-01-19] VITALS (19 sets, daily range): BP systolic 109–137
[2020-01-19] MEDS: NOREPINEPHRINE BITARTRATE 4 MG in D5W 246 ML IV PRN (00:18)
[2020-01-19] MEDS: metroNIDAZOLE 500 mg/NS 100 ML IV SCH ×2 (00:22→11:42)
[2020-01-19] MEDS: D5W 1,000 ML IV SCH ×3 (00:23→19:00)
[2020-01-19 05:43] LABS: BASOPHILS % (AUTO) 0.6 % (0.0-2.0); EOSINOPHILS # (AUTO) 0.4 K/uL (0.0-0.4); EOSINOPHILS % (AUTO) 5.3 % (0.0-4.0); HEMATOCRIT 30.6 % (36-54); HEMOGLOBIN 9.8 g/dL (14.0-18.0); LYMPHOCYTES # (AUTO) 1.1 K/uL (1.0-5.5); LYMPHOCYTES % (AUTO) 15.8 % (20.5-51.5); MEAN CORPUSCULAR HEMOGLOBIN 29 pg (27-31); MEAN CORPUSCULAR HGB CONC 32 % (32-36); MEAN CORPUSCULAR VOLUME 91 fL (79.0-98.0); MONOCYTES # (AUTO) 0.6 K/uL (0.0-1.0); MONOCYTES % (AUTO) 8.9 % (1.7-9.3); NEUTROPHILS # (AUTO) 4.9 K/uL (1.8-7.7); NEUTROPHILS % (AUTO) 69.4 % (40.0-70.0); PLATELET COUNT (AUTO) 136 K/uL (130-430); RED BLOOD CELL COUNT(AUTO) 3.36 MIL/uL (4.2-6.2); RED CELL DISTRIBUTION WIDTH 14.9 % (9.0-15.0)
[2020-01-19 05:50] LABS: CALCIUM 9.3 mg/dL (8.4-11.0); CREATININE 1.87 mg/dL (0.55-1.30); POTASSIUM 3.6 mmol/L (3.5-5.1)
[2020-01-19] MEDS: DIVALPROEX SODIUM 500 MG TABLET( DEPAKOTE) PO SCH ×2 (08:16→21:39)
[2020-01-19] MEDS: HEPARIN SODIUM,PORCINE 5,000 UNITS/ML VIAL SUBCUT SCH ×2 (08:16→21:40)
[2020-01-19] MEDS: BALSAM PERU/CASTOR OIL 60 GM OINT...G. TP SCH (08:17)
[2020-01-19] MEDS: QUEtiapine FUMARATE 100 MG TABLET PO SCH ×2 (08:17→21:39)
[2020-01-19] MEDS: FINASTERIDE 5 MG TABLET (PROSCAR) PO SCH (08:20)
[2020-01-19] MEDS: DESMOPRESSIN 0.1 MG TAB (DDAVP) PO SCH ×2 (08:20→23:00)
[2020-01-19] MEDS: INSULIN REGULAR, HUMAN 100 UNITS/ML, 10 ML VIAL (humuLIN R) SUBCUT PRN ×2 (11:55→17:39)
[2020-01-19] MEDS: CEFEPIME 1 GM in D5W 50 ML IV SCH (13:19)
[2020-01-19] MEDS ORDERED: GENTAMICIN SULFATE 400 MG in NS 100 ML IV ONE (19:00)
[2020-01-19] MEDS ORDERED: GENTAMICIN 100 mg/50 mL NS 100 ML IV ONE ×2 (21:40→21:41)
[2020-01-20] MEDS: metroNIDAZOLE 500 mg/NS 100 ML IV SCH ×2 (00:40→12:50)
[2020-01-20] MEDS: D5W 1,000 ML IV SCH ×3 (02:45→22:45)
[2020-01-20 07:49] LABS: BASOPHILS % (AUTO) 0.5 % (0.0-2.0); EOSINOPHILS # (AUTO) 0.3 K/uL (0.0-0.4); EOSINOPHILS % (AUTO) 3.9 % (0.0-4.0); HEMATOCRIT 34.3 % (36-54); HEMOGLOBIN 10.9 g/dL (14.0-18.0); LYMPHOCYTES # (AUTO) 1.6 K/uL (1.0-5.5); LYMPHOCYTES % (AUTO) 22.6 % (20.5-51.5); MEAN CORPUSCULAR HEMOGLOBIN 29 pg (27-31); MEAN CORPUSCULAR HGB CONC 32 % (32-36); MEAN CORPUSCULAR VOLUME 92 fL (79.0-98.0); MONOCYTES # (AUTO) 0.6 K/uL (0.0-1.0); MONOCYTES % (AUTO) 8.6 % (1.7-9.3); NEUTROPHILS # (AUTO) 4.6 K/uL (1.8-7.7); NEUTROPHILS % (AUTO) 64.4 % (40.0-70.0); PLATELET COUNT (AUTO) 153 K/uL (130-430); RED BLOOD CELL COUNT(AUTO) 3.74 MIL/uL (4.2-6.2); RED CELL DISTRIBUTION WIDTH 15.2 % (9.0-15.0); WHITE BLOOD COUNT (AUTO) 7.1 K/uL (4.8-10.8)
[2020-01-20 08:13] LABS: CALCIUM 10.4 mg/dL (8.4-11.0); CREATININE 1.68 mg/dL (0.55-1.30); POTASSIUM 3.8 mmol/L (3.5-5.1)
[2020-01-20] MEDS: DESMOPRESSIN 0.1 MG TAB (DDAVP) PO SCH ×2 (10:18→20:30)
[2020-01-20] MEDS: FINASTERIDE 5 MG TABLET (PROSCAR) PO SCH (10:18)
[2020-01-20] MEDS: QUEtiapine FUMARATE 100 MG TABLET PO SCH ×2 (10:18→20:30)
[2020-01-20] MEDS: DIVALPROEX SODIUM 500 MG TABLET( DEPAKOTE) PO SCH ×2 (10:19→20:30)
[2020-01-20] MEDS: HEPARIN SODIUM,PORCINE 5,000 UNITS/ML VIAL SUBCUT SCH ×2 (10:20→20:30)
[2020-01-20] MEDS: BALSAM PERU/CASTOR OIL 60 GM OINT...G. TP SCH (10:21)
[2020-01-20 12:04] VITALS: BP_SYST 140
[2020-01-20] MEDS: CEFEPIME 1 GM in D5W 50 ML IV SCH (12:39)
[2020-01-20] MEDS: INSULIN REGULAR, HUMAN 100 UNITS/ML, 10 ML VIAL (humuLIN R) SUBCUT PRN (12:47)
[2020-01-20 16:55] VITALS: BP_SYST 135
[2020-01-20] MEDS: GENTAMICIN SULFATE 140 MG in NS 100 ML IV SCH (20:30)
[2020-01-21 00:08] VITALS: BP_SYST 118
[2020-01-21] MEDS: metroNIDAZOLE 500 mg/NS 100 ML IV SCH ×2 (00:23→11:09)
[2020-01-21] MEDS: INSULIN REGULAR, HUMAN 100 UNITS/ML, 10 ML VIAL (humuLIN R) SUBCUT PRN (00:25)
[2020-01-21] MEDS: DIVALPROEX SODIUM 500 MG TABLET( DEPAKOTE) PO SCH ×2 (08:36→21:28)
[2020-01-21] MEDS: FINASTERIDE 5 MG TABLET (PROSCAR) PO SCH (08:36)
[2020-01-21] MEDS: D5W 1,000 ML IV SCH ×2 (08:36→17:15)
[2020-01-21] MEDS: DESMOPRESSIN 0.1 MG TAB (DDAVP) PO SCH ×2 (08:36→21:28)
[2020-01-21] MEDS: HEPARIN SODIUM,PORCINE 5,000 UNITS/ML VIAL SUBCUT SCH ×2 (08:37→21:30)
[2020-01-21] MEDS: QUEtiapine FUMARATE 100 MG TABLET PO SCH ×2 (08:37→21:28)
[2020-01-21] MEDS: BALSAM PERU/CASTOR OIL 60 GM OINT...G. TP SCH (08:38)
[2020-01-21 08:53] VITALS: BP_SYST 136
[2020-01-21] MEDS: GENTAMICIN SULFATE 140 MG in NS 100 ML IV SCH ×2 (09:08→21:27)
[2020-01-21] MEDS: CEFEPIME 1 GM in D5W 50 ML IV SCH (11:51)
[2020-01-21 12:37] VITALS: BP_SYST 125
[2020-01-21 16:55] VITALS: BP_SYST 135
[2020-01-21 20:00] VITALS: BP_SYST 153
[2020-01-22] VITALS: BP_SYST 150
[2020-01-22] MEDS: metroNIDAZOLE 500 mg/NS 100 ML IV SCH ×2 (00:13→11:04)
[2020-01-22] MEDS: D5W 1,000 ML IV SCH ×3 (03:32→21:13)
[2020-01-22] MEDS: INSULIN REGULAR, HUMAN 100 UNITS/ML, 10 ML VIAL (humuLIN R) SUBCUT PRN ×2 (06:18→17:17)
[2020-01-22 08:00] VITALS: BP_SYST 144
[2020-01-22] MEDS: GENTAMICIN SULFATE 140 MG in NS 100 ML IV SCH (09:38)
[2020-01-22] MEDS: DIVALPROEX SODIUM 500 MG TABLET( DEPAKOTE) PO SCH ×2 (09:38→21:06)
[2020-01-22] MEDS: FINASTERIDE 5 MG TABLET (PROSCAR) PO SCH (09:38)
[2020-01-22] MEDS: QUEtiapine FUMARATE 100 MG TABLET PO SCH ×2 (09:38→21:05)
[2020-01-22] MEDS: DESMOPRESSIN 0.1 MG TAB (DDAVP) PO SCH ×2 (09:39→21:05)
[2020-01-22] MEDS: HEPARIN SODIUM,PORCINE 5,000 UNITS/ML VIAL SUBCUT SCH ×2 (09:39→21:10)
[2020-01-22] MEDS: BALSAM PERU/CASTOR OIL 60 GM OINT...G. TP SCH (09:51)
[2020-01-22] MEDS: CEFEPIME 1 GM in D5W 50 ML IV SCH (11:53)
[2020-01-22 12:16] VITALS: BP_SYST 125
[2020-01-22 16:20] VITALS: BP_SYST 150
[2020-01-22] MEDS: ERTAPENEM SODIUM 0.5 GM in NS 50 ML IV SCH (18:09)
[2020-01-22 20:00] VITALS: BP_SYST 133
[2020-01-23] VITALS: BP_SYST 140
[2020-01-23] MEDS: D5W 1,000 ML IV SCH (06:07)
[2020-01-23 06:43] LABS: ALBUMIN 1.9 g/dL (3.4-4.8); CALCIUM 11.4 mg/dL (8.4-11.0); CREATININE 1.53 mg/dL (0.55-1.30); POTASSIUM 3.7 mmol/L (3.5-5.1); TOTAL BILIRUBIN 0.3 mg/dL (0.0-1.0)
[2020-01-23 08:29] LABS: BASOPHILS # (AUTO) 0.1 K/uL (0.0-0.2); BASOPHILS % (AUTO) 0.7 % (0.0-2.0); EOSINOPHILS # (AUTO) 0.5 K/uL (0.0-0.4); EOSINOPHILS % (AUTO) 5.3 % (0.0-4.0); HEMATOCRIT 32.9 % (36-54); HEMOGLOBIN 10.8 g/dL (14.0-18.0); LYMPHOCYTES # (AUTO) 2.5 K/uL (1.0-5.5); LYMPHOCYTES % (AUTO) 25.7 % (20.5-51.5); MEAN CORPUSCULAR HEMOGLOBIN 30 pg (27-31); MEAN CORPUSCULAR HGB CONC 33 % (32-36); MEAN CORPUSCULAR VOLUME 91 fL (79.0-98.0); MONOCYTES # (AUTO) 0.9 K/uL (0.0-1.0); MONOCYTES % (AUTO) 9.7 % (1.7-9.3); NEUTROPHILS # (AUTO) 5.6 K/uL (1.8-7.7); NEUTROPHILS % (AUTO) 58.6 % (40.0-70.0); PLATELET COUNT (AUTO) 289 K/uL (130-430); RED BLOOD CELL COUNT(AUTO) 3.61 MIL/uL (4.2-6.2); RED CELL DISTRIBUTION WIDTH 15.3 % (9.0-15.0); WHITE BLOOD COUNT (AUTO) 9.6 K/uL (4.8-10.8)
[2020-01-23] MEDS: QUEtiapine FUMARATE 100 MG TABLET PO SCH (08:35)
[2020-01-23] MEDS: DIVALPROEX SODIUM 500 MG TABLET( DEPAKOTE) PO SCH (08:36)
[2020-01-23] MEDS: DESMOPRESSIN 0.1 MG TAB (DDAVP) PO SCH (08:36)
[2020-01-23] MEDS: BALSAM PERU/CASTOR OIL 60 GM OINT...G. TP SCH (08:38)
[2020-01-23 08:40] VITALS: BP_SYST 134
[2020-01-23] MEDS: HEPARIN SODIUM,PORCINE 5,000 UNITS/ML VIAL SUBCUT SCH (08:42)
[2020-01-23] MEDS: FINASTERIDE 5 MG TABLET (PROSCAR) PO SCH (09:07)
[2020-01-23 12:23] VITALS: BP_SYST 135
[2020-01-23 16:00] VITALS: BP_SYST 144
[2020-01-23] MEDS: ERTAPENEM SODIUM 0.5 GM in NS 50 ML IV SCH (16:00)
[2020-01-23 16:46] VITALS: BP_SYST 144
== END 2020-01-23 16:45 | DRG 871 ==
LOC: SED 18:53 → SMU 22:06 → STU 22:59 → SIC 01-17 02:16 → STU 01-19 18:15
PROVIDERS: ADMIT Internal Medicine Hospice and Palliative Medicine; ATTEND Internal Medicine Hospice and Palliative Medicine
PROC: 05HY33Z Insertion of Infusion Device into Upper Vein, Percutaneous Approach (ICD-10-PCS; principal; 2020-01-16)
PROC: B54NZZA Ultrasonography of Left Upper Extremity Veins, Guidance (ICD-10-PCS; 2020-01-16)
DX: A41.52 Sepsis due to Pseudomonas (principal); N17.0 Acute kidney failure with tubular necrosis; E43 Unspecified severe protein-calorie malnutrition; R53.2 Functional quadriplegia; R65.21 Severe sepsis with septic shock; E87.0 Hyperosmolality and hypernatremia; N39.0 Urinary tract infection, site not specified; Z16.12 Extended spectrum beta lactamase (ESBL) resistance; E11.22 Type 2 diabetes mellitus with diabetic chronic kidney disease; E86.1 Hypovolemia; E87.8 Other disorders of electrolyte and fluid balance, not elsewhere classified; F31.9 Bipolar disorder, unspecified; F02.80 Dementia in other diseases classified elsewhere, unspecified severity, without behavioral disturbance, psychotic disturbance, mood disturbance, and anxiety; G20 Parkinson's disease; G40.909 Epilepsy, unspecified, not intractable, without status epilepticus; I12.9 Hypertensive chronic kidney disease with stage 1 through stage 4 chronic kidney disease, or unspecified chronic kidney disease; N18.9 Chronic kidney disease, unspecified; N40.0 Benign prostatic hyperplasia without lower urinary tract symptoms; R62.7 Adult failure to thrive; F39 Unspecified mood [affective] disorder; Z20.828 Contact with and (suspected) exposure to other viral communicable diseases; B96.1 Klebsiella pneumoniae [K. pneumoniae] as the cause of diseases classified elsewhere; Z74.01 Bed confinement status; Z78.9 Other specified health status; Z86.14 Personal history of Methicillin resistant Staphylococcus aureus infection; Z93.0 Tracheostomy status; Z86.19 Personal history of other infectious and parasitic diseases; Z68.23 Body mass index [BMI] 23.0-23.9, adult
CPT/HCPCS: 36415; 71045; 80048; 80053; 80164-TC; 80170-TC; 81000-TC; 82962; 83036; 83605; 83735-TC; 85025; 87040-TC; 87081; 87086; 93005; 96360; 99291; C1751; G0378; J0692; J0696; J1335; J1580; J1644; J1815; J2060; J3370; J3490; J7040; J7042; J7050; J7060

== ENCOUNTER 2020-03-02 19:31 | Inpatient (IN) | payer OTHER, MEDICAID, SELFPAY ==
[~2020-03-02] VITALS: Ht 180.3 cm; Wt 84.4 kg
[2020-03-02 19:31] VITALS: BP_SYST 105
[~2020-03-02 19:31] MED LIST changes: +ACET-73 GT; +ACET325T GT; +ALBMDI INH; +APIX2.5T GT; +ARGI1POW13 GT; +ASCO500T20 GT; +BISA10SU61 RC; +CHOL500013 GT; +CLON0.5T4 GT; +DOCU-144 GT; +FAMO-132 GT; +FINA5TAB3 GT; -FINA5TAB3 PO; -HYDR12.585 PO; +INSU100V42; +IPRA12.9 INH; +LEVE500S9 GT; -LOSA50TA3 PO; +MOM GT; +MULT-1189 GT; +SENN8.6T19 GT; +SER100 GT; -SER100 PO; +ZINC220T4 GT
--- NOTE | 2020-03-02 19:33 | NUR ---
ER Dr. YUN at bedside examining patient.
--- NOTE | 2020-03-02 19:33 | NUR ---
Placed in room 1. Placed on monitor car operator, blood pressure machine and pulse oximeter. To gown for exam. Side rails up.
--- NOTE | 2020-03-02 19:34 | NUR ---
pt BIB ALS from [facility] a&o x1, arrived in respiratory distress with ALS bagging patient with ambubag. pt spiked a fever of 101.6 at [facility], was given tylenol 650mg around 5pm. pt O2 sat was 67% on room air, HR ranged from 110-140. pt arrived with O2 sat at 70% with NRB ambu bag at 100% O2.
--- NOTE | 2020-03-02 19:42 | NUR ---
CENTRAL LINE TRIPLE LUMEN CATHETER PLACED BY DR. YUN USING STERILE TECHNIQUE TO RIGHT JUGULAR. BLEEDING CONTROLLED. DRESSING APPLIED. TRIPLE LUMEN CATHETERS FLUSHED WITH 10CC NORMAL SALINE.
--- NOTE | 2020-03-02 19:42 | NUR ---
# 20 gauge angiocath placed to RIGHT WRIST. Use of asceptic technique. Opsite placed over site. Blood return noted. Blood for lab drawn from site. Flushed with 10 cc of normal saline. No evidence of infiltration noted. Patient tolerated well.
--- NOTE | 2020-03-02 19:46 | NUR ---
Patient not known to be of DNR status. Patient medicated with 20 mg of ETOMIDATE for sedation prior to placement of ET tube. Respiratory therapy at bedside prior to placement. Size 7.5 ET tube placed by DR. YUN. Cuff inflated with MOB cc air. Auscultation of breath sounds over bilateral chest wall. ET tube secured with HOLSTER. O2 sats 95% pulse ox. PCXR ordered to check tube placement.
[2020-03-02] MEDS ORDERED: NACL 0.9% 2,500 ML IV ONE (20:00)
[2020-03-02] MEDS ORDERED: MEROPENEM 1 GM in NS 100 ML IV ONE (20:00)
[2020-03-02] MEDS ORDERED: SODIUM CL 3% FOR INHALATION 15 ML VIAL.NEB INH ONE (20:00)
[2020-03-02] MEDS ORDERED: VANCOMYCIN HCL 1,000 MG in NS 250 ML IV ONE (20:00)
--- NOTE | 2020-03-02 20:03 | NUR ---
ER Dr. HERRERA at bedside examining patient.
[2020-03-02 20:04] LABS: HEMATOCRIT 34.3 % (36-54); HEMOGLOBIN 10.6 g/dL (14.0-18.0); MEAN CORPUSCULAR HEMOGLOBIN 27 pg (27-31); MEAN CORPUSCULAR HGB CONC 31 % (32-36); MEAN CORPUSCULAR VOLUME 89 fL (79.0-98.0); PLATELET COUNT (AUTO) 300 K/uL (130-430); RED BLOOD CELL COUNT(AUTO) 3.86 MIL/uL (4.2-6.2); WHITE BLOOD COUNT (AUTO) 18.4 K/uL (4.8-10.8)
--- NOTE | 2020-03-02 20:04 | NUR ---
# 16 FR Rice catheter with use of sterile technique. Immediate return of 20 cc CLEAR YELLOW urine noted. Bedside drainage bag placed below level of bladder. Urine sample collected and sent to lab. Pt tolerated procedure WELL.
--- NOTE | 2020-03-02 20:05 | NUR ---
SPUTUM CULTURE COLLECTED BY RESPIRATORY AND SENT TO LAB.
--- NOTE | 2020-03-02 20:07 | NUR ---
RADIOLOGY AT BEDSIDE FOR CHEST XRAY.
--- NOTE | 2020-03-02 20:07 | NUR ---
COVID AND MRSA SWAB COLLECTED AND SENT TO LAB.
[2020-03-02 20:19] LABS: CALCIUM 10.4 mg/dL (8.4-11.0); CREATININE 2.17 mg/dL (0.55-1.30); POTASSIUM 3.5 mmol/L (3.5-5.1)
[2020-03-02 20:24] LABS: TOTAL BILIRUBIN 0.2 mg/dL (0.0-1.0)
--- NOTE | 2020-03-02 20:29 | NUR ---
propofol IV drip initiated at 5mcg/kg/min, rate of 2.4ml/hr per protocol. will titrate by 5mcg/kg/min every 5-10 minutes to achieve a Rasmay score of 5 per protocol/MD order.
[2020-03-02] MEDS ORDERED: AZITHROMYCIN 500 MG in NS 250 ML IV ONE (20:30)
[2020-03-02] MEDS ORDERED: PROPOFOL DRIP 100 ML IV ONE ×2 (20:30→20:41)
--- NOTE | 2020-03-02 20:35 | NUR ---
# 18 gauge angiocath placed to LEFT WRIST. Use of asceptic technique. Opsite placed over site. Blood return noted. Flushed with 10 cc of normal saline. No evidence of infiltration noted. Patient tolerated well.
--- NOTE | 2020-03-02 20:35 | NUR ---
Note undone in EDM - 03/02/20 at 2051 by RIKA # 20 gauge angiocath placed to LEFT WRIST. Use of asceptic technique. Opsite placed over site. Blood return noted. Flushed with 10 cc of normal saline. No evidence of infiltration noted. Patient tolerated well.
--- NOTE | 2020-03-02 20:41 | NUR ---
RADIOLOGY AT BEDSIDE FOR XRAY OF ARM/CHEST TO CHECK PLACEMENT OF CENTRAL LINE IN RIGHT IJ.
[2020-03-02 20:51] LABS: C-REACTIVE PROTEIN QUANT 9.1 mg/dL (0-0.5)
--- NOTE | 2020-03-02 20:56 | NUR ---
propofol IV drip infusing at 25mcg/kg/min. will titrate by 5mcg/kg/min every 5-10 minutes to maintain a Rasmay score of 5 per protocol/MD order.
[2020-03-02 20:57] LABS: BAND % (MANUAL) 0 % (0-6); BASOPHILS % (MANUAL) 0 % (0-2); EOSINOPHILS % (MANUAL) 0 % (0-7); LYMPHOCYTES % (MANUAL) 19 % (20-46); MONOCYTES % (MANUAL) 6 % (0-11)
[2020-03-02 21:15] LABS: INR 1.1 (0.80-1.20); PROTHROMBIN TIME 11.5 SECS (9.5-12.5)
--- NOTE | 2020-03-02 21:15 | NUR ---
Patient's code status is FULL CODE paperwork completed and placed in chart.
[2020-03-02] MEDS ORDERED: FOLI-43 GT (21:19)
--- NOTE | 2020-03-02 21:19 | NUR ---
RECEIVED ADMIT ORDERS FROM DR. ROBERT.
--- NOTE | 2020-03-02 21:19 | NUR ---
CALLED ICU AND SPOKE TO HEMALATHA WASHINGTON TO REQUEST BED.
[2020-03-02] MEDS ORDERED: DOCU-144 GT (21:20)
--- NOTE | 2020-03-02 21:20 | NUR ---
COVID SWAB (PCR) COLLECTED AND SENT TO LAB.
--- NOTE | 2020-03-02 21:22 | NUR ---
Blood cultures drawn, prior to administration of antibiotic.
[2020-03-02] MEDS ORDERED: SER100 PO (21:23)
[2020-03-02 21:26] LABS: BILIRUBIN,URINE NEGATIVE (NEGATIVE); BLOOD, URINE 1+ (NEGATIVE); CLARITY/URINE CLEAR (CLEAR); COLOR,URINE YELLOW (YELLOW); GLUCOSE,URINE NEGATIVE (NEGATIVE); KETONES,URINE NEGATIVE (NEGATIVE); LEUKOCYTE ESTERASE ,URINE NEGATIVE (NEGATIVE); NITRITE, URINE NEGATIVE (NEGATIVE); PH,URINE 5.5 (5.0-8.0); PROTEIN URINE 1+ (NEGATIVE); UROBILINOGEN,URINE 0.2 (0.2-1.0)
[2020-03-02] MEDS ORDERED: QUET50TA GT (21:26)
[2020-03-02] MEDS ORDERED: DIVA500T2 GT (21:29)
[2020-03-02] MEDS ORDERED: AZITHROMYCIN 500 MG/VIAL (ZITHROMAX) IV ONE (21:31)
[2020-03-02] MEDS ORDERED: DIVA-74 GT (21:32)
[2020-03-02] MEDS ORDERED: INSU100V42 (21:39)
[2020-03-02] MEDS ORDERED: ETOMIDATE 20 MG/ 10 ML VIAL (AMIDATE) IVP ONE (21:45)
[2020-03-02 21:47] LABS: BACTERIA,URINE FEW /HPF (None Seen)
--- NOTE | 2020-03-02 21:50 | NUR ---
spoke with HEMALATHA Telles from [facility] to receive report on patient.
[2020-03-02] MEDS ORDERED: BISA10SU61 RC (21:53)
--- NOTE | 2020-03-02 21:55 | NUR ---
Medication reconciliation completed with information provided by Codie Nguyễn. Any prior medication reconciliation on file was reviewed and corrected.
--- NOTE | 2020-03-02 21:56 | NUR ---
lab at bedside for draw of second lactic.
--- NOTE | 2020-03-02 21:59 | NUR ---
propofol IV drip titrated down to at 20mcg/kg/min, pts BP 97/86.
--- NOTE | 2020-03-02 22:06 | NUR ---
propofol IV drip titrated to 25mcg/kg/min, will titrate by 5mcg/kg/min every 5-10 minutes to achieve a Rasmay score of 5 per protocol/MD order.
[2020-03-02] MEDS: clonazePAM 0.5 MG TABLET GT SCH (22:15)
[2020-03-02] MEDS ORDERED: DOCUSATE SODIUM 100 MG/10 ML UDC PO PRN (22:15)
[2020-03-02] MEDS ORDERED: ZOLPIDEM TARTRATE 5 MG TABLET PO PRN (22:15)
[2020-03-02] MEDS: NACL 0.9% 1,000 ML IV SCH (22:15)
[2020-03-02] MEDS: PIPERACILLIN/TAZO 4.5GM/DEX-IS 100 ML IV SCH (22:15)
[2020-03-02] MEDS ORDERED: IPRATROPIUM/ALBUTEROL SULFATE 3 ML AMPUL.NEB (DUONEB) INH PRN (22:15)
[2020-03-02] MEDS ORDERED: ONDANSETRON HCL 4 MG/2 ML VIAL IVP PRN (22:15)
[2020-03-02] MEDS ORDERED: HYDROcodone/ACETAMIN 7.5-325 MG TAB PO PRN (22:15)
[2020-03-02] MEDS: APIXABAN 2.5 MG TABLET GT SCH (22:15)
--- NOTE | 2020-03-02 22:25 | NUR ---
central line discontinued by Dr. Alcala per radiologist informing of misplacement of central line. bleeding controlled at site. dressing placed over site.
--- NOTE | 2020-03-02 22:30 | NUR ---
Patient will be admitted to care of DR. ROBERT. Admitted to ICU unit. Will go to room 8. Belongings list completed. Complete and up to date summary report printed. SBAR report to be given at bedside with opportunity for questions.
[2020-03-02 22:54] VITALS: BP_SYST 104
--- NOTE | 2020-03-02 22:55 | NUR ---
rt notes pt transfer from ER1 to ICU 8. pt was suctioned prior to transportation. brought BVM w/ pt. pt saturation was 100%, hr 80. no resp distress noted. will continue to monitor pt.
--- NOTE | 2020-03-02 22:55 | NUR ---
RESPIRATORY AT BEDSIDE TO TRANSFER TO ICU.
--- NOTE | 2020-03-02 22:55 | NUR ---
Transfer to ICU via ACLS protocol. Licensed nurse present. IV present no signs or symptoms of infiltration.
[2020-03-02] MEDS ORDERED: VANCOMYCIN HCL 1000 MG/VIAL IV ONE (22:58)
[2020-03-02 23:00] VITALS: BP_SYST 107
[2020-03-02 23:01] LABS: FREE T4 (FREE THYROXINE) 0.7 ng/dL (0.6-1.6); PHOSPHORUS 3.4 mg/dL (2.7-4.5); THYROID STIMULATING HORMONE 1.4 uIu/mL (0.34-4.82)
--- NOTE | 2020-03-02 23:07 | NUR ---
ICU ADMISSION: PATIENT RC'VD FROM ER BY TWO RN'S AND RT, PATIENT PLACED ONTO ICU BED AND ONTO MONITOR. ALL CARES ASSUMED.
[2020-03-02] MEDS ORDERED: MEROPENEM 500 MG VIAL IV ONE (23:10)
--- NOTE | 2020-03-02 23:15 | NUR ---
ASSESSMENT: PATIENT INTUBATED WITH 7.5, VENT SETTINGS AC RATE OF 14, TV 500, PEEP 0, FIO2 60% WITH EQUAL CHEST RISE AND FALL, LUNG SOUNDS DIMINISHED IN B/L LOBES, BASES COARSE. OXYGEN SATURATION 100 VIA MONITOR. CARDIO (SR) ON MONITOR RATE 92. PATIENT EYES CLOSED, UNABLE TO ASSESS NEURO. 18 G TO LEFT WRIST PATENT AND RUNNING DIPRIVAN AT 30 MCG/KG/MIN VIA INFUSION PUMP. PATIENT HAS A G-TUBE, PATENT AND PLACEMENT VERIFIED. ABD SOFT ROUND WITH BOWEL SOUNDS PRESENT X 4 QUADRANTS, 16F GIPSON CATHETER IN PLACE SECURED TO THIGH. SKIN COOL PALE AND DRY, WOUND NOTED TO COCCYX, MEASUREMENTS AND PHOTOS TAKEN, PLACED INTO CHART, OPTI-FOAM DRESSING PLACED, ORDER IN FOR WOUND CONSULT. NON-PITTING EDEMA NOTED TO BUE / BLE EXTREMITIES. RADIAL PULSES PALPABLE, WEAK, PEDAL PULSES PALPABLE, WEAK.
--- NOTE | 2020-03-02 23:43 | NUR ---
RT NOTES @2100 FIO2 TITRATED TO 60% AND ETT PUSHED DOWN TO 24cm AT THE LIP PER DR. JAVIER FIELDS. HEMALATHA SANTIAGO.
[2020-03-02 23:56] VITALS: BP_SYST 114
[2020-03-03] VITALS (32 sets, daily range): BP systolic 94–130
[2020-03-03] MEDS: IPRATROPIUM/ALBUTEROL SULFATE 3 ML AMPUL.NEB (DUONEB) INH SCH ×7 (00:04→23:30)
--- NOTE | 2020-03-03 01:30 | NUR ---
RN Rounds: Patient repositioned, oral care provided, bed in lowest locked position, all safety measures in place. Patient stable, sedated on Diprivan running at 25 mcg/mg/min.
[2020-03-03] MEDS ORDERED: PIPERACILLIN/TAZOBACTAM 4.5 GM/VIAL (ZOSYN) IV ONE (01:34)
[2020-03-03] MEDS ORDERED: PROPOFOL DRIP 100 ML IV ONE ×2 (02:06→12:50)
--- NOTE | 2020-03-03 02:44 | NUR ---
Witnessed RN change Diprivan gtt to 25mcg/kg/min.
--- NOTE | 2020-03-03 03:11 | NUR ---
RN Rounds: Karishma-care provided, large loose bowel movement, linens changed. Patient tolerated well, safety measures in place.
--- NOTE | 2020-03-03 03:12 | NUR ---
Witnessed RN change Diprivan gtt to 20mcg/kg/min.
--- NOTE | 2020-03-03 03:25 | NUR ---
rt notes 0325 titrated fio2 from 60% to 50%, pt saturation 100% all throughout pt arrival from ER. no resp distress noted. rn denzel aware. will continue to monitor pt.
--- NOTE | 2020-03-03 03:26 | NUR ---
Fio2: FiO2 decreased to 50% by RT, patient tolerating well at this time.
--- NOTE | 2020-03-03 04:51 | NUR ---
Family: Spoke with brother ([phone]) via phone, update given on patient. All questions and concerns answered at this time. Brother stated he will call later this afternoon for additional updates.
[2020-03-03] MEDS: PIPERACILLIN/TAZO 4.5GM/DEX-IS 100 ML IV SCH ×3 (05:03→23:06)
--- NOTE | 2020-03-03 06:22 | NUR ---
RN Rounds: Oral care provided, patient repositioned for comfort, all safety checks in place bed in lowest locked position, patient stable at this time in no acute distress and or discomfort.
--- NOTE | 2020-03-03 06:27 | NUR ---
MD Consult: MD Dr. Magdalene walters for consult on patient, pending return call at this time.
--- NOTE | 2020-03-03 06:45 | NUR ---
MD Rounds: Dr. Zhao at bedside, verbal update given, MD stated he will place orders for patient.
--- NOTE | 2020-03-03 06:56 | NUR ---
Closing Notes: Patient endorsed to AM shift RN using SBAR format. No signs of distress at this time.
--- NOTE | 2020-03-03 07:27 | NUR ---
Nutrition Update Tyler Scale 11 noted. Pt admitted for Respiratory Failure, Pneumonia, Sepsis Diet: Glucerna 1.2 at 40ml/hr (goal rate), FWF 250ml Q6H via OGT BMI: 25.9 kg/m2 RD to follow per nutrition care standards.
--- NOTE | 2020-03-03 07:30 | NUR ---
Opening Note Received bedside report from endorsing RN for continuation of care. Received patient intubated, sedated, and resting in bed. No signs or symptoms of acute distress noted. Bed locked in lowest position, bed alarm on, and fall precautions in place. Safety precautions in place.
[2020-03-03] MEDS ORDERED: POTASSIUM CHLORIDE 40 MEQ, LIDOCAINE JECT 2% PF 100 MG 50 MG in NS 250 ML IV PRN (09:00)
[2020-03-03] MEDS: DIVALPROEX SODIUM 500 MG TABLET( DEPAKOTE) PO SCH ×2 (09:04→21:27)
[2020-03-03] MEDS: LevETIRAcetam 500 MG/5 ML UDC ORAL LIQUID GT SCH ×2 (09:04→21:27)
[2020-03-03] MEDS: clonazePAM 0.5 MG TABLET GT SCH ×2 (09:05→21:27)
[2020-03-03] MEDS: QUEtiapine FUMARATE 25 MG TABLET GT SCH (09:05)
[2020-03-03] MEDS: FINASTERIDE 5 MG TABLET (PROSCAR) GT SCH (09:05)
[2020-03-03] MEDS: NACL 0.9% 1,000 ML IV SCH (09:07)
[2020-03-03] MEDS: amLODIPine BESYLATE 10 MG TABLET PO SCH (09:07)
[2020-03-03] MEDS: APIXABAN 2.5 MG TABLET GT SCH ×2 (09:08→21:24)
[2020-03-03 09:24] LABS: BASOPHILS # (AUTO) 0.1 K/uL (0.0-0.2); BASOPHILS % (AUTO) 0.5 % (0.0-2.0); EOSINOPHILS # (AUTO) 0.1 K/uL (0.0-0.4); EOSINOPHILS % (AUTO) 1.2 % (0.0-4.0); HEMATOCRIT 34.1 % (36-54); HEMOGLOBIN 10.5 g/dL (14.0-18.0); LYMPHOCYTES # (AUTO) 1.8 K/uL (1.0-5.5); LYMPHOCYTES % (AUTO) 17.2 % (20.5-51.5); MEAN CORPUSCULAR HEMOGLOBIN 28 pg (27-31); MEAN CORPUSCULAR HGB CONC 31 % (32-36); MEAN CORPUSCULAR VOLUME 90 fL (79.0-98.0); MONOCYTES # (AUTO) 0.7 K/uL (0.0-1.0); MONOCYTES % (AUTO) 6.8 % (1.7-9.3); NEUTROPHILS # (AUTO) 7.6 K/uL (1.8-7.7); NEUTROPHILS % (AUTO) 74.3 % (40.0-70.0); PLATELET COUNT (AUTO) 211 K/uL (130-430); RED BLOOD CELL COUNT(AUTO) 3.82 MIL/uL (4.2-6.2); RED CELL DISTRIBUTION WIDTH 15.5 % (9.0-15.0); WHITE BLOOD COUNT (AUTO) 10.3 K/uL (4.8-10.8)
[2020-03-03 09:36] LABS: CALCIUM 9.7 mg/dL (8.4-11.0); CREATININE 1.98 mg/dL (0.55-1.30)
--- NOTE | 2020-03-03 09:45 | NUR ---
Consult called to Dr. Wadsworth's office. Staff indicated that she would give him the consult when he finishes the office.
--- NOTE | 2020-03-03 11:30 | NUR ---
Family Update Spoke with patient's brother Sukumar regarding patient status and plan of care. All questions answered and education provided.
[2020-03-03] MEDS: ACETAMINOPHEN 500 MG TABLET PO PRN (12:39)
--- NOTE | 2020-03-03 14:11 | NUR ---
P.T. NOTES P.T. EVAL COMPLETED; REFER TO EVAL FOR DETAILS.
--- NOTE | 2020-03-03 15:20 | NUR ---
Witness diprivan drip titration to 15 mcg/kg/min
--- NOTE | 2020-03-03 15:50 | NUR ---
WOUND EVALUATION: Wound Consult received from Dr. Zhao. Thank you, Dr. Zhao, for the consult. Patient received in a Magnolia Bed with an KRYSTA mattress(low air loss therapy was initiated), awake, nonverbal, nonresponsive to verbal commands. Patient is unable to turn In bed independently. Tyler Score is an 11. Past Medical History: Parkinson's Disease, Chronic Kidney Disease, Chronic Respiratory Failure, Hypertension, Diabetes Insipidus, Dementia, Bipolar, PEG placement. Recent Labs: WBC 10.3, RBC 3.82, hemoglobin 10.5, hematocrit 34.1, sodium 139, chloride 121, BUN 88, creatinine 1.98, GFR 36, glucose 109, albumin 2.0, Fibrinogen 675, D-dimer 2180. Blood culture results x2 in progress. MRSA screen results in progress. Urine culture results in progress. Endotracheal sputum culture results contaminated with sputum, culture not performed. Intrinsic factors that delay wound healing: Chronic Kidney Disease, Chronic Respiratory Failure, Diabetes Insipidus, Hypoalbuminemia. Extrinsic factors that delay wound healing: Immobility. Wound Assessment: 1. Sacral-Coccygeal area: Unstageable pressure ulcer, present on admission. Wound bed has 50% red tissue, 30% yellow slough, 20% dark discolored tissue. No odor, no drainage. Periwound macerated. Surrounding tissue has scar tissue and dark discolored tissue. Wound measures 6.0 cm x 5.0 cm. Recommend: Cleanse wound with normal saline. Apply moisture barrier cream to jesus-wound. Apply Venelex ointment to wound bed. Cover with Sacral foam dressing. Perform wound care daily, and as needed for dressing soiling or dislodgement. Also recommend: Reposition patient every 2 hours with pillow support and off-load pressure areas with pillows for pressure re-distribution. Offload, elevate and float bilateral heels with one pillow lengthwise under each extremity at all times. Perform skin care and monitor skin integrity Q shift. Use moisture barrier cream on buttocks and other moisture susceptible areas QID and as needed for soiling. Maintain patient on a low air-loss mattress.
--- NOTE | 2020-03-03 16:15 | NUR ---
Wound Care/CHG/BM Wound care done with dietetics professor Paxton. CHG bath given and bed linens changed. Patient had small BM, pericare done. Patient cleaned, turned, and repositioned. No signs or symptoms of acute distress noted.
[2020-03-03] MEDS: PROPOFOL DRIP 100 ML IV PRN ×2 (17:05→23:05)
--- NOTE | 2020-03-03 17:23 | NUR ---
Dr. Wadsworth in to see patient. New orders received.
[2020-03-03] MEDS ORDERED: MENTHOL/ZINC OXIDE 113 GM OINT. TP PRN (18:15)
[2020-03-03] MEDS: D5W 1,000 ML IV SCH (18:23)
--- NOTE | 2020-03-03 19:21 | NUR ---
Closing Note Endorsed bedside report to oncoming RN using SBAR approach for continuation of care.
--- NOTE | 2020-03-03 19:30 | NUR ---
Opening note: Report received from day RN. Assuming care now.
[2020-03-03] MEDS: TERAZOSIN HCL 1 MG CAPSULE (HYTRIN) PO SCH (21:00)
[2020-03-03] MEDS: QUEtiapine FUMARATE 100 MG TABLET PO SCH (21:27)
[2020-03-03] MEDS: DESMOPRESSIN ACETATE 4 MCG/ML AMP IVP SCH (21:30)
[2020-03-04] VITALS (31 sets, daily range): BP systolic 99–133
[2020-03-04] MEDS: IPRATROPIUM/ALBUTEROL SULFATE 3 ML AMPUL.NEB (DUONEB) INH SCH ×6 (03:44→23:29)
[2020-03-04] MEDS: D5W 1,000 ML IV SCH ×2 (04:20→13:51)
[2020-03-04] MEDS: PIPERACILLIN/TAZO 4.5GM/DEX-IS 100 ML IV SCH ×3 (06:21→22:32)
--- NOTE | 2020-03-04 06:30 | NUR ---
Dr Wadsworth here now, ordering labs.
[2020-03-04 07:25] LABS: BASOPHILS # (AUTO) 0.1 K/uL (0.0-0.2); BASOPHILS % (AUTO) 0.5 % (0.0-2.0); EOSINOPHILS # (AUTO) 0.7 K/uL (0.0-0.4); EOSINOPHILS % (AUTO) 6.2 % (0.0-4.0); HEMATOCRIT 26.9 % (36-54); HEMOGLOBIN 8.5 g/dL (14.0-18.0); LYMPHOCYTES # (AUTO) 0.8 K/uL (1.0-5.5); MEAN CORPUSCULAR HEMOGLOBIN 28 pg (27-31); MEAN CORPUSCULAR HGB CONC 32 % (32-36); MEAN CORPUSCULAR VOLUME 88 fL (79.0-98.0); MONOCYTES # (AUTO) 0.9 K/uL (0.0-1.0); MONOCYTES % (AUTO) 7.6 % (1.7-9.3); NEUTROPHILS # (AUTO) 9.2 K/uL (1.8-7.7); NEUTROPHILS % (AUTO) 78.7 % (40.0-70.0); PLATELET COUNT (AUTO) 196 K/uL (130-430); RED BLOOD CELL COUNT(AUTO) 3.05 MIL/uL (4.2-6.2); RED CELL DISTRIBUTION WIDTH 15.6 % (9.0-15.0); WHITE BLOOD COUNT (AUTO) 11.7 K/uL (4.8-10.8)
[2020-03-04 07:43] LABS: CALCIUM 8.8 mg/dL (8.4-11.0); CREATININE 2.02 mg/dL (0.55-1.30); POTASSIUM 3.5 mmol/L (3.5-5.1)
[2020-03-04 07:49] LABS: ALBUMIN 1.6 g/dL (3.4-4.8); TOTAL BILIRUBIN 0.3 mg/dL (0.0-1.0)
--- NOTE | 2020-03-04 08:00 | NUR ---
AM ASSESSMENT. PT INTUBATED, VENT SETTING AC 14, TIDAL VOLUME 500 ML, FIO2 50%, PEEP 5, MARKET RELATIONSHIP MANAGER ON NSR, O2 SAT RANGING FROM 97% TO 100%, ORAL CARE DONE, MODERATE TO LARGE ORAL SECRETIONS, THICK, CARE DONE.
[2020-03-04] MEDS: amLODIPine BESYLATE 10 MG TABLET PO SCH (09:07)
[2020-03-04] MEDS: QUEtiapine FUMARATE 25 MG TABLET GT SCH (09:07)
[2020-03-04] MEDS: DIVALPROEX SODIUM 500 MG TABLET( DEPAKOTE) PO SCH ×2 (09:08→20:44)
[2020-03-04] MEDS: clonazePAM 0.5 MG TABLET GT SCH ×2 (09:08→20:44)
[2020-03-04] MEDS: FINASTERIDE 5 MG TABLET (PROSCAR) GT SCH (09:12)
[2020-03-04] MEDS: LevETIRAcetam 500 MG/5 ML UDC ORAL LIQUID GT SCH ×2 (09:12→20:47)
[2020-03-04] MEDS: APIXABAN 2.5 MG TABLET GT SCH ×2 (09:12→20:45)
--- NOTE | 2020-03-04 09:19 | NUR ---
PAGED DR ANDRAE MARTE SPOKE TO EXCHANGE
[2020-03-04] MEDS: BALSAM PERU/CASTOR OIL 60 GM OINT...G. TP SCH (09:20)
--- NOTE | 2020-03-04 09:30 | NUR ---
Witnessed diprivan drip being titrated down to 10 mcgs/kg/min on the pump.
--- NOTE | 2020-03-04 09:40 | NUR ---
Dietitian Recommendations *Recommend TF Glucerna 1.2 at goal rate of 65 ml/hr via PEG w/ Prosource BID. FWF 250 ml q6h or per MD. -TF, propofol and Prosource BID w/ FWF provides 2192 kcal, 124 g protein, 2256 ml H2O, meeting 87% of upper end estimated kcal needs and 100% of estimated protein needs. Please see Nutrition Assessment for details. EMERSON,RD
--- NOTE | 2020-03-04 10:00 | NUR ---
Witnessed diprivan drip being titrated up to 15 mcgs/kg/min on the pump.
[2020-03-04] MEDS: DESMOPRESSIN ACETATE 4 MCG/ML AMP IVP SCH ×2 (10:07→20:48)
--- NOTE | 2020-03-04 10:30 | NUR ---
R.TJoellen VENTILATOR SETTING CHANGED TO CPAP BY Clay
--- NOTE | 2020-03-04 10:40 | NUR ---
PAGED DR MARTE AGAIN, HE CALLED BACK, MADE AWARE OF CHEMISTRY RESULT, NO NEW ORDERS RECEIVED.
--- NOTE | 2020-03-04 12:00 | NUR ---
Witnessed diprivan drip being turned off. Pt on CPAP trial. Will monitor for resp distress.
--- NOTE | 2020-03-04 15:40 | NUR ---
BUCK. R.T. CAME BACK AND SWITCHED VENT TO AC MODE.
[2020-03-04] MEDS: PROPOFOL DRIP 100 ML IV PRN (15:52)
--- NOTE | 2020-03-04 15:55 | NUR ---
Witnessed diprivan infusing at 5 mcgs/kg/min
--- NOTE | 2020-03-04 16:15 | NUR ---
Witnessed Diprivan infusing at 10 mcgs/kg/min.
--- NOTE | 2020-03-04 16:37 | NUR ---
PAGED DR ANDRAE VALLADARES SPOKE TO SAMIR
--- NOTE | 2020-03-04 16:49 | NUR ---
. DR VALLADARES CALLED BACK, REPORTED MRSA NARES, NEW ORDERS RECEIVED.
--- NOTE | 2020-03-04 19:49 | NUR ---
PAGED DR. ROBERT FOR ORDERS DIALED: [phone] SPOKE TO: ANSWERING MACHINE
--- NOTE | 2020-03-04 19:59 | NUR ---
PAGED DR. VALLADARES FOR ORDERS DIALED: [phone] SPOKE TO: DR. VALLADARES
--- NOTE | 2020-03-04 20:00 | NUR ---
ORALLY INTUBATED. SUCTIONED WITH COPIOUS AMOUNTS OF TENACIOUS YELLOW GREEN MUCUS OBTAINED. ORAL CARE GIVEN. RESPONDS TO NOXIOUS STIMULI. ON DIPRIVAN DRIP AT 10 MCG/KG/MIN. AMANDA PICC LINE MARQUISE D/I. GT FEEDING WITH GLUCERNA 1.2 AT 40CC/HR. RESIDUAL CHECK 5CC. GIPSON CATH PATENT DRAINING CLEAR MARYLIN URINE TO GRAVITY. SR. DR VALLADARES NOTIFIED OF BLOOD CULTURE -GRAM POSITIVE COCCI IN CLUSTERS FROM ANAEROBIC BOTTLE. ORDERED ID CONSULT DR XIONG.
[2020-03-04] MEDS: QUEtiapine FUMARATE 100 MG TABLET PO SCH (20:44)
[2020-03-04] MEDS: MUPIROCIN 2% TOPICAL OINTMENT 22 GM NS SCH (20:47)
[2020-03-04] MEDS: TERAZOSIN HCL 1 MG CAPSULE (HYTRIN) PO SCH (21:00)
--- NOTE | 2020-03-04 21:25 | NUR ---
PAGED FOR CONSULT DR. XIONG REASON FOR CONSULT: POSITIVE BLOOD CULTURE ORDERING PHYSICIAN: DR. VALLADARES DIALED: [phone] SPOKE TO: FADY
[2020-03-04] MEDS ORDERED: *CUBICIN 6 MG/KG Q48H/PHARMACY XX PRN (21:45)
[2020-03-04] MEDS ORDERED: DAPTOmycin 500 MG in NS 50 ML IV SCH (22:00)
--- NOTE | 2020-03-04 22:00 | NUR ---
SUCTIONED. HS CARE GIVEN.
[2020-03-05] VITALS (28 sets, daily range): BP systolic 102–130
--- NOTE | 2020-03-05 | NUR ---
REPOSITIONED. SUCTIONED WITH SAME RESULTS. ORAL CARE GIVEN. RESIDUAL CHECK 0, GT FLUSHED WITH 250CC H2O.
[2020-03-05] MEDS: D5W 1,000 ML IV SCH ×3 (01:42→19:15)
--- NOTE | 2020-03-05 02:00 | NUR ---
ASLEEP. NO DISTRESS NOTED.
[2020-03-05] MEDS: IPRATROPIUM/ALBUTEROL SULFATE 3 ML AMPUL.NEB (DUONEB) INH SCH ×4 (03:50→15:35)
--- NOTE | 2020-03-05 04:00 | NUR ---
ORAL CARE GIVEN. AM CARE DONE. SUCTIONED. RESIDUAL CHECK 10CC. TURNED.
[2020-03-05] MEDS: PIPERACILLIN/TAZO 4.5GM/DEX-IS 100 ML IV SCH ×3 (05:19→22:00)
[2020-03-05] MEDS: PROPOFOL DRIP 100 ML IV PRN ×2 (05:20→18:17)
--- NOTE | 2020-03-05 06:00 | NUR ---
SUCTIONED AND TURNED Q2 HRS AND PRN. UO GOOD. GT FLUSHED WITH 250CC H2O. DIPRIVAN AT 10 MCG/KG/MIN. REMAINS IN GUARDED CONDITION.
[2020-03-05 06:01] LABS: ALBUMIN 1.5 g/dL (3.4-4.8); CALCIUM 8.4 mg/dL (8.4-11.0); CREATININE 1.95 mg/dL (0.55-1.30); POTASSIUM 3.6 mmol/L (3.5-5.1); TOTAL BILIRUBIN 0.3 mg/dL (0.0-1.0)
[2020-03-05 07:32] LABS: BASOPHILS # (AUTO) 0.1 K/uL (0.0-0.2); BASOPHILS % (AUTO) 0.7 % (0.0-2.0); EOSINOPHILS # (AUTO) 0.8 K/uL (0.0-0.4); EOSINOPHILS % (AUTO) 9.5 % (0.0-4.0); HEMATOCRIT 25.7 % (36-54); HEMOGLOBIN 8.2 g/dL (14.0-18.0); LYMPHOCYTES # (AUTO) 1.2 K/uL (1.0-5.5); LYMPHOCYTES % (AUTO) 14.7 % (20.5-51.5); MEAN CORPUSCULAR HEMOGLOBIN 28 pg (27-31); MEAN CORPUSCULAR HGB CONC 32 % (32-36); MEAN CORPUSCULAR VOLUME 88 fL (79.0-98.0); MONOCYTES # (AUTO) 0.7 K/uL (0.0-1.0); MONOCYTES % (AUTO) 8.2 % (1.7-9.3); NEUTROPHILS # (AUTO) 5.5 K/uL (1.8-7.7); NEUTROPHILS % (AUTO) 66.9 % (40.0-70.0); PLATELET COUNT (AUTO) 169 K/uL (130-430); RED BLOOD CELL COUNT(AUTO) 2.94 MIL/uL (4.2-6.2); RED CELL DISTRIBUTION WIDTH 15.2 % (9.0-15.0); WHITE BLOOD COUNT (AUTO) 8.2 K/uL (4.8-10.8)
--- NOTE | 2020-03-05 07:45 | NUR ---
RN NOTES Still orally intubated to vent. on same vent setting. SPO2 good. Diprivan drip infusing @ 10 mcg/kg/min. Sinus rhythm on the monitor.
[2020-03-05] MEDS ORDERED: DAPTOmycin 500 MG in NS 50 ML IV SCH (08:00)
--- NOTE | 2020-03-05 08:10 | NUR ---
Witnessed RN Diprivan titration down to 5 mcg/kg/min.
--- NOTE | 2020-03-05 08:10 | NUR ---
IV DRIP TITRATION: DIPRIVAN DRIP TITRATED TO 5 MCG/MIN.
--- NOTE | 2020-03-05 08:15 | NUR ---
CPAP TRIAL PER DR. ENRIQUEZ. WILL CONTINUE TO MONITOR PATIENT.
--- NOTE | 2020-03-05 08:15 | NUR ---
RT NOTES Vent to cpap 5 ps 12 40% per cpap trial by dr michael. no adverse reactions noted. will monitor pt.
--- NOTE | 2020-03-05 08:30 | NUR ---
MD VISIT: DR. MINA ENRIQUEZ HERE TO SEE PATIENT, WITH ORDERS CARRIED OUT.
[2020-03-05] MEDS: clonazePAM 0.5 MG TABLET GT SCH ×2 (09:00→21:00)
[2020-03-05] MEDS: amLODIPine BESYLATE 10 MG TABLET PO SCH (09:01)
[2020-03-05] MEDS: QUEtiapine FUMARATE 25 MG TABLET GT SCH (09:02)
[2020-03-05] MEDS: DIVALPROEX SODIUM 500 MG TABLET( DEPAKOTE) PO SCH ×2 (09:02→21:00)
[2020-03-05] MEDS: BALSAM PERU/CASTOR OIL 60 GM OINT...G. TP SCH (09:03)
[2020-03-05] MEDS: MUPIROCIN 2% TOPICAL OINTMENT 22 GM NS SCH ×2 (09:03→21:00)
[2020-03-05] MEDS: DESMOPRESSIN ACETATE 4 MCG/ML AMP IVP SCH ×2 (09:12→21:00)
[2020-03-05] MEDS: LevETIRAcetam 500 MG/5 ML UDC ORAL LIQUID GT SCH ×2 (09:13→21:00)
[2020-03-05] MEDS: FINASTERIDE 5 MG TABLET (PROSCAR) GT SCH (09:13)
[2020-03-05] MEDS: APIXABAN 2.5 MG TABLET GT SCH ×2 (09:16→21:00)
--- NOTE | 2020-03-05 10:25 | NUR ---
RT NOTES Weaning parameters rsbi 41 vc 415 nif -16 and -21 other attempts are low.
--- NOTE | 2020-03-05 10:32 | NUR ---
RT NOTES Vent settings back to AC 14 500 +5 40% per cpap trial
[2020-03-05] MEDS: ACETYLCYSTEINE 20% 4 ML VIAL (RT) INH SCH ×2 (11:05→15:35)
--- NOTE | 2020-03-05 14:00 | NUR ---
Wound care done, dressings changed.
[2020-03-05] MEDS: DAPTOmycin 500 MG in NS 50 ML IV SCH (14:22)
--- NOTE | 2020-03-05 15:00 | NUR ---
RN NOTES SPO2 good on AC 14, VT 500, FIO2 40%, PEEP 5
--- NOTE | 2020-03-05 18:00 | NUR ---
RN NOTES PM Care done, Patient repositioned for comfort.
--- NOTE | 2020-03-05 18:30 | NUR ---
RN NOTES Comfortable at this time, Vitals stable.
[2020-03-05] MEDS: QUEtiapine FUMARATE 100 MG TABLET PO SCH (21:00)
[2020-03-05] MEDS: TERAZOSIN HCL 1 MG CAPSULE (HYTRIN) PO SCH (21:00)
[2020-03-06] VITALS (22 sets, daily range): BP systolic 108–152
[2020-03-06] MEDS: D5W 1,000 ML IV SCH ×2 (05:15→14:42)
--- NOTE | 2020-03-06 05:30 | NUR ---
SUPERVISOR HARDBOARD DOWN: PAPER CHARTING COMPLETED AND PLACED INTO CHART
[2020-03-06] MEDS: PIPERACILLIN/TAZO 4.5GM/DEX-IS 100 ML IV SCH ×3 (05:38→21:20)
[2020-03-06 06:45] LABS: BASOPHILS % (AUTO) 0.3 % (0.0-2.0); EOSINOPHILS # (AUTO) 0.6 K/uL (0.0-0.4); HEMATOCRIT 24.5 % (36-54); HEMOGLOBIN 7.9 g/dL (14.0-18.0); LYMPHOCYTES # (AUTO) 1.1 K/uL (1.0-5.5); LYMPHOCYTES % (AUTO) 13.9 % (20.5-51.5); MEAN CORPUSCULAR HEMOGLOBIN 28 pg (27-31); MEAN CORPUSCULAR HGB CONC 32 % (32-36); MEAN CORPUSCULAR VOLUME 87 fL (79.0-98.0); MONOCYTES # (AUTO) 0.6 K/uL (0.0-1.0); MONOCYTES % (AUTO) 7.6 % (1.7-9.3); NEUTROPHILS # (AUTO) 5.4 K/uL (1.8-7.7); NEUTROPHILS % (AUTO) 70.2 % (40.0-70.0); PLATELET COUNT (AUTO) 190 K/uL (130-430); RED BLOOD CELL COUNT(AUTO) 2.83 MIL/uL (4.2-6.2); RED CELL DISTRIBUTION WIDTH 14.7 % (9.0-15.0); WHITE BLOOD COUNT (AUTO) 7.7 K/uL (4.8-10.8)
--- NOTE | 2020-03-06 07:29 | NUR ---
Opening Note Received plan of care via sbar from endorsing RN.
[2020-03-06] MEDS: ACETYLCYSTEINE 20% 4 ML VIAL (RT) INH SCH ×4 (07:41→19:00)
[2020-03-06] MEDS: IPRATROPIUM/ALBUTEROL SULFATE 3 ML AMPUL.NEB (DUONEB) INH SCH ×4 (07:41→19:00)
--- NOTE | 2020-03-06 08:00 | NUR ---
Propofol drip off. CPAP trial per RT.
--- NOTE | 2020-03-06 08:10 | NUR ---
RT NOTES Vent settings to cpap 5 ps 12 per daily trial order. no adverse reactions noted. will monitor pt.
--- NOTE | 2020-03-06 08:15 | NUR ---
Dr. Del Castillo at bedside. Provided patient update. Received orders to ween of ventilator and provide weening parameters for possible extubation.
--- NOTE | 2020-03-06 08:55 | NUR ---
RT NOTES vent settings back to ac due to gastro issue, will resume cpap trials once resolved. rn will notify rt.
--- NOTE | 2020-03-06 09:00 | NUR ---
Dr. Faust at bedside. Provided patient update. No new orders.
[2020-03-06 09:03] LABS: CALCIUM 8.6 mg/dL (8.4-11.0); CREATININE 1.67 mg/dL (0.55-1.30); POTASSIUM 3.3 mmol/L (3.5-5.1)
[2020-03-06] MEDS: FINASTERIDE 5 MG TABLET (PROSCAR) GT SCH (09:26)
[2020-03-06] MEDS: amLODIPine BESYLATE 10 MG TABLET PO SCH (09:27)
[2020-03-06] MEDS: LevETIRAcetam 500 MG/5 ML UDC ORAL LIQUID GT SCH ×2 (09:28→21:15)
[2020-03-06] MEDS: QUEtiapine FUMARATE 25 MG TABLET GT SCH (09:28)
[2020-03-06] MEDS: DIVALPROEX SODIUM 500 MG TABLET( DEPAKOTE) PO SCH ×2 (09:28→21:15)
[2020-03-06] MEDS: MUPIROCIN 2% TOPICAL OINTMENT 22 GM NS SCH ×2 (09:29→21:18)
[2020-03-06] MEDS: BALSAM PERU/CASTOR OIL 60 GM OINT...G. TP SCH (09:29)
[2020-03-06] MEDS: DESMOPRESSIN ACETATE 4 MCG/ML AMP IVP SCH ×2 (09:29→21:15)
[2020-03-06] MEDS: DAPTOmycin 500 MG in NS 50 ML IV SCH (09:29)
[2020-03-06] MEDS: APIXABAN 2.5 MG TABLET GT SCH ×2 (09:30→21:16)
[2020-03-06] MEDS: clonazePAM 0.5 MG TABLET GT SCH ×2 (09:39→21:16)
--- NOTE | 2020-03-06 11:15 | NUR ---
RT NOTES Per rn ok to resume cpap trial. no adverse reactions noted. will monitor pt.
[2020-03-06] MEDS ORDERED: POTASSIUM CHLORIDE 20 MEQ/PKT PACKET PO ONE (11:45)
--- NOTE | 2020-03-06 11:45 | NUR ---
Dr. Carrion at bedside. Provided patient update. Received order for Potassium PO 40 meq once.
--- NOTE | 2020-03-06 14:15 | NUR ---
Paged Dr. Del Castillo to report weening parameters
--- NOTE | 2020-03-06 14:27 | NUR ---
RT NOTES Weaning parameters: rsbi 19 vital capacity 466 nif -30 (-29, -23)
--- NOTE | 2020-03-06 15:18 | NUR ---
Nutrition Note Pt was assessed by RD on 03/04 (please refer to Nutrition Assessment). Recommendation for Glucerna 1.2 at 65 ml/hr (goal rate), Prosource BID, Free Water Flush: 250 ml q[address]h via GT. RD spoke w/ RN regarding implementation of new TF order.
--- NOTE | 2020-03-06 16:17 | NUR ---
RT NOTES Vent settings back to AC per dr Del Castillo.
--- NOTE | 2020-03-06 19:27 | NUR ---
oPENING NOTE: Report received from previous nurse. Assuming care now.
--- NOTE | 2020-03-06 19:32 | NUR ---
Closing Note Provided plan of care via sbar from endorsing RN.
[2020-03-06] MEDS: TERAZOSIN HCL 1 MG CAPSULE (HYTRIN) PO SCH (21:00)
[2020-03-06] MEDS: QUEtiapine FUMARATE 100 MG TABLET PO SCH (21:18)
[2020-03-07] VITALS (27 sets, daily range): BP systolic 108–160
[2020-03-07] MEDS: IPRATROPIUM/ALBUTEROL SULFATE 3 ML AMPUL.NEB (DUONEB) INH SCH ×7 (00:02→23:58)
[2020-03-07] MEDS: ACETYLCYSTEINE 20% 4 ML VIAL (RT) INH SCH ×7 (00:02→23:58)
[2020-03-07] MEDS: D5W 1,000 ML IV SCH ×3 (01:15→23:43)
[2020-03-07 06:03] LABS: BASOPHILS % (AUTO) 0.3 % (0.0-2.0); EOSINOPHILS # (AUTO) 0.6 K/uL (0.0-0.4); EOSINOPHILS % (AUTO) 7.6 % (0.0-4.0); HEMATOCRIT 23.6 % (36-54); HEMOGLOBIN 7.7 g/dL (14.0-18.0); LYMPHOCYTES % (AUTO) 11.6 % (20.5-51.5); MEAN CORPUSCULAR HEMOGLOBIN 28 pg (27-31); MEAN CORPUSCULAR HGB CONC 33 % (32-36); MONOCYTES # (AUTO) 0.7 K/uL (0.0-1.0); MONOCYTES % (AUTO) 8.2 % (1.7-9.3); NEUTROPHILS # (AUTO) 5.9 K/uL (1.8-7.7); NEUTROPHILS % (AUTO) 72.3 % (40.0-70.0); PLATELET COUNT (AUTO) 203 K/uL (130-430); RED BLOOD CELL COUNT(AUTO) 2.77 MIL/uL (4.2-6.2); WHITE BLOOD COUNT (AUTO) 8.2 K/uL (4.8-10.8)
[2020-03-07 06:11] LABS: CALCIUM 8.7 mg/dL (8.4-11.0); CREATININE 1.4 mg/dL (0.55-1.30); POTASSIUM 3.4 mmol/L (3.5-5.1)
[2020-03-07] MEDS: PIPERACILLIN/TAZO 4.5GM/DEX-IS 100 ML IV SCH ×3 (06:32→23:42)
[2020-03-07] MEDS: APIXABAN 2.5 MG TABLET GT SCH ×2 (08:21→20:57)
[2020-03-07] MEDS: clonazePAM 0.5 MG TABLET GT SCH ×2 (08:21→20:58)
[2020-03-07] MEDS: FINASTERIDE 5 MG TABLET (PROSCAR) GT SCH (08:23)
[2020-03-07] MEDS: LevETIRAcetam 500 MG/5 ML UDC ORAL LIQUID GT SCH ×2 (08:23→20:58)
[2020-03-07 08:24] LABS: MEAN CORPUSCULAR VOLUME 85 fL (79.0-98.0)
[2020-03-07] MEDS: DIVALPROEX SODIUM 500 MG TABLET( DEPAKOTE) PO SCH ×2 (08:26→20:58)
[2020-03-07] MEDS: QUEtiapine FUMARATE 25 MG TABLET GT SCH (08:26)
[2020-03-07] MEDS: BALSAM PERU/CASTOR OIL 60 GM OINT...G. TP SCH (08:28)
[2020-03-07] MEDS: amLODIPine BESYLATE 10 MG TABLET PO SCH (08:28)
[2020-03-07] MEDS: MUPIROCIN 2% TOPICAL OINTMENT 22 GM NS SCH ×2 (08:29→20:58)
[2020-03-07] MEDS ORDERED: POTASSIUM CHLORIDE 20 MEQ TAB.PRT.SR PO PRN (09:15)
[2020-03-07] MEDS ORDERED: DAPTOmycin 500 MG in NS 50 ML IV ONE (10:00)
[2020-03-07] MEDS: DESMOPRESSIN ACETATE 4 MCG/ML AMP IVP SCH ×2 (10:05→20:58)
--- NOTE | 2020-03-07 15:31 | NUR ---
DR ENRIQUEZ IN TO SEE PATIENT AND UPDATED ON CPAP TOLERANCE AND WEANING VALUES PER RT. ORDER FOR ABG AND POSSIBLE EXTUBATION. INFORMED THAT PATIENT APPEARS TO BE DOING BETTER WHEN ON HIS LEFT SIDE. WILL CALL HER WITH ABG REPORT.
--- NOTE | 2020-03-07 16:18 | NUR ---
Nutrition F/U RD reviewed pt's current EMR record including diet Hx, physician notes, nursing notes, pertinent labs/meds/procedures, care trends, and care activity. Admission Dx: Respiratory Failure, PNA, Sepsis PMH: Parkinson's, CKD, Chronic Respiratory Failure, HTN, Diabetes Insipidus, PEG placement, dementia, Bipolar Current Diet Order/Nutrition Support: Glucerna 1.2 at 65 ml/hr, Prosource BID, Free Water Flush: 250 ml q6h via GT x1 day Subjective Info: RD met w/ pt's primary RN in ICU nursing station. Pt is under isolation precautions and RD bedside visit was deferred to conserve PPE. RN reported that pt is undergoing CPAP and weaning trials w/ possible extubation later today after eval by ammonia box tender. Pt has not been on propofol since 03/06 per EMR review. RN reported that pt has been tolerating Glucerna 1.2 at 65 ml/hr today, and she stated she would give Prosource later as well. Water flush order confirmed: 250 ml q6h. No wt changes noted since last RD visit, 03/04. Current TF regimen is adequate/appropriate. Pertinent Medications: seroquel, eliquis, colace Pertinent Labs: Na 139 WNL (improved), K 3.4 L, BUN 46 H, Cr 1.4 H, BG 121 H, Phos 3.4 WBL, HgA1c 5.9 H (03/02) Skin Integrity Comment: Tyler scale 11. Per Rug Drying Machine Operator note 03/03: unstageable pressure ulcer on Sacral-coccygeal; 2+ pitting edema bilateral hand and 3+ pitting edema to bilateral leg per nursing notes Current % PO N/A, on EN Estimated Energy Expenditure (kcals/day) 7052-8569 kcal/day (25-30 kcal/kg ABW for critical illness, BMI <30) Estimated Protein Required (g/day) 101-168 g pro/day (1.2-2.0 g pro/kg ABW for critical illness, BMI < 30) Estimated Fluid Required (l/day) 3227-0678 ml/day (1 ml/kcal/day for maintenance) Problem/Etiology/Signs/Symptoms Inadequate protein-energy intake r/t increased nutritional demands for healing AEB unstageable pressure injury and current EN not meeting needs. *met Expected Outcomes/Goals -Will monitor tolerance of nutrition support w/ goal of pt meeting at least 75% of estimated nutritional needs, labs, trending WNL, normal GI function, skin integrity, and weight maintenance. Dietitian Recommendations * Recommend continuing Glucerna 1.2 65 ml/hr (goal rate), Free Water Flush: 250 ml q6h via GT Provides: 1992 kcal/day, 124 gm protein/day, and 2256 ml free water/day Meets: 95% of lower end of estimated caloric needs and 74% of upper end of estimated protein needs Follow Up High Risk: F/U in 2-3 days
--- NOTE | 2020-03-07 16:28 | NUR ---
Dietitian Recommendations * Recommend continuing Glucerna 1.2 65 ml/hr (goal rate), Free Water Flush: 250 ml q6h via GT Provides: 1992 kcal/day, 124 gm protein/day, and 2256 ml free water/day Meets: 95% of lower end of estimated caloric needs and 74% of upper end of estimated protein needs LP, RD Please refer to Nutrition F/U for details.
--- NOTE | 2020-03-07 17:45 | NUR ---
RT NOTES PT WAS EXTUBATED 1655 WITH NO ADVERSE RXN. PT WAS PLACED ON NC ON 4 L/M AND PT SATING 100% PT NIMISHA WELL.
--- NOTE | 2020-03-07 19:30 | NUR ---
Opening note Received report and assumed care. Patient resting in bed; requires repositioning. IVF infusing to AMANDA picc patent. Patient on NC 3L tolerating settings. will continue to monitor as per unit protocol.
--- NOTE | 2020-03-07 20:10 | NUR ---
Assessment completed. repositioned in bed for comfort. Receiving breathing Tx from RT. will continue to monitor.
[2020-03-07] MEDS ORDERED: TERAZOSIN HCL 1 MG CAPSULE (HYTRIN) ONE (20:52)
[2020-03-07] MEDS: QUEtiapine FUMARATE 100 MG TABLET PO SCH (20:59)
[2020-03-07] MEDS: TERAZOSIN HCL 1 MG CAPSULE (HYTRIN) PO SCH (20:59)
[2020-03-08] VITALS (12 sets, daily range): BP systolic 91–140
[2020-03-08] MEDS: IPRATROPIUM/ALBUTEROL SULFATE 3 ML AMPUL.NEB (DUONEB) INH SCH ×6 (03:47→23:55)
[2020-03-08] MEDS: ACETYLCYSTEINE 20% 4 ML VIAL (RT) INH SCH ×6 (03:47→23:56)
--- NOTE | 2020-03-08 05:00 | NUR ---
Bipap off and placed on Nasal canula 3L tolerating well.
[2020-03-08 05:29] LABS: CALCIUM 8.7 mg/dL (8.4-11.0); CREATININE 1.44 mg/dL (0.55-1.30); POTASSIUM 3.8 mmol/L (3.5-5.1)
--- NOTE | 2020-03-08 05:45 | NUR ---
Morning care provided. Large BM noted watery. patient was cleaned and repositioned for comfort.
[2020-03-08 05:57] LABS: BASOPHILS % (AUTO) 0.5 % (0.0-2.0); EOSINOPHILS # (AUTO) 0.5 K/uL (0.0-0.4); EOSINOPHILS % (AUTO) 4.9 % (0.0-4.0); HEMATOCRIT 25.2 % (36-54); HEMOGLOBIN 8.2 g/dL (14.0-18.0); LYMPHOCYTES # (AUTO) 1.7 K/uL (1.0-5.5); LYMPHOCYTES % (AUTO) 18.5 % (20.5-51.5); MEAN CORPUSCULAR HEMOGLOBIN 28 pg (27-31); MEAN CORPUSCULAR HGB CONC 33 % (32-36); MEAN CORPUSCULAR VOLUME 86 fL (79.0-98.0); MONOCYTES # (AUTO) 0.6 K/uL (0.0-1.0); MONOCYTES % (AUTO) 6.9 % (1.7-9.3); NEUTROPHILS # (AUTO) 6.4 K/uL (1.8-7.7); NEUTROPHILS % (AUTO) 69.2 % (40.0-70.0); PLATELET COUNT (AUTO) 206 K/uL (130-430); RED BLOOD CELL COUNT(AUTO) 2.94 MIL/uL (4.2-6.2); RED CELL DISTRIBUTION WIDTH 14.9 % (9.0-15.0); WHITE BLOOD COUNT (AUTO) 9.3 K/uL (4.8-10.8)
[2020-03-08] MEDS: PIPERACILLIN/TAZO 4.5GM/DEX-IS 100 ML IV SCH (06:01)
--- NOTE | 2020-03-08 07:27 | NUR ---
Opening Note Received plan of care via sbar from endorsing RN.
--- NOTE | 2020-03-08 08:14 | NUR ---
Dr. Cartagena at bedside. Provided patient update. Discussed transfer Tele and PT. Patient now on Tele Status.
--- NOTE | 2020-03-08 08:15 | NUR ---
Dr. Del Castillo at bedside. Provided patient update. MD dudleyed to transfer to Tele.
[2020-03-08] MEDS: DESMOPRESSIN ACETATE 4 MCG/ML AMP IVP SCH (08:46)
[2020-03-08] MEDS: LevETIRAcetam 500 MG/5 ML UDC ORAL LIQUID GT SCH ×2 (08:46→22:05)
[2020-03-08] MEDS: QUEtiapine FUMARATE 25 MG TABLET GT SCH (08:47)
[2020-03-08] MEDS: DIVALPROEX SODIUM 500 MG TABLET( DEPAKOTE) PO SCH ×2 (08:47→21:52)
[2020-03-08] MEDS: clonazePAM 0.5 MG TABLET GT SCH ×2 (08:48→21:53)
[2020-03-08] MEDS: amLODIPine BESYLATE 10 MG TABLET PO SCH (08:48)
[2020-03-08] MEDS: FINASTERIDE 5 MG TABLET (PROSCAR) GT SCH (08:48)
[2020-03-08] MEDS: MUPIROCIN 2% TOPICAL OINTMENT 22 GM NS SCH ×2 (08:49→21:58)
[2020-03-08] MEDS: BALSAM PERU/CASTOR OIL 60 GM OINT...G. TP SCH (08:49)
[2020-03-08] MEDS: APIXABAN 2.5 MG TABLET GT SCH ×2 (08:50→21:54)
[2020-03-08] MEDS: CEFTOLOZANE IV SCH ×2 (13:06→21:52)
[2020-03-08] MEDS: D5W IV SCH ×2 (13:06→21:52)
[2020-03-08] MEDS: TAZOBACTAM IV SCH ×2 (13:06→21:52)
--- NOTE | 2020-03-08 17:06 | NUR ---
P.T. NOTES P.T. RE EVAL COMPLETED; REFER TO EVAL FOR DETAILS.
[2020-03-08] MEDS: D5W 1,000 ML IV SCH (17:38)
--- NOTE | 2020-03-08 18:25 | NUR ---
TRANSFER FROM ICU Received transfer from RN from ICU, patient in stable condition, muhammad catheter draining by gravity, vital signs taken, bed locked and at low position, call light within reach, fall/aspiration and contact precautions put in place.
--- NOTE | 2020-03-08 19:30 | NUR ---
Closing Note patient in bed resting, no signs of distress noted, bed locked and at low position, call light within reach, contact/fall and aspiration precautions maintained through out shift, endorse patient care to oncoming restaurant shift supervisor nurse.
--- NOTE | 2020-03-08 19:35 | NUR ---
OPENING NOTE: RECEIVED REPORT AND ASSUMED CARE. PATIENT IS IN THE BED, CURRENTLY SLEEPING. BREATHING UNLABORED AND EVEN ON RA. PATIENT IS ON FEEDING TUBE, RUNNING ORDERED RATE. 0 RESIDUAL AT THIS TIME. GIPSON CATHETER IS DRAINING TO GRAVITY. NO BLOOD OR RESIDUAL NOTED IN GIPSON BAG. IVF INFUSING TO AMANDA PICC LINE. IV NOTED ON L HAND, SALINE LOCK, INFILTRATED. DISCONTINUED IV, ELEVATED HAND USING PILLOW. NO S/S ACUTE DISTRESS NOTED. SAFETY,FALL,SEIZURE, AND CONTACT PRECAUTIONS ARE IN PLACE. WILL CONTINUE TO MONITOR PATIENT.
[2020-03-08] MEDS: TERAZOSIN HCL 1 MG CAPSULE (HYTRIN) PO SCH (21:51)
[2020-03-08] MEDS: QUEtiapine FUMARATE 100 MG TABLET PO SCH (21:53)
--- NOTE | 2020-03-08 21:54 | NUR ---
MED PASS: PATIENT GIVEN SCHEDULED ME VIA G-TUBE. NO S/S ACUTE DISTRESS NOTED. WILL MONITOR PATIENT FOR ANY CHANGES.
--- NOTE | 2020-03-09 00:10 | NUR ---
RN ROUNDS: PATIENT IS SLEEPING. RESPIRATION IS EVEN AND UNLABORED. NO S/S ACUTE DISTRESS NOTED. IVF INFUSING ORDERED RATE. FEEDING TUBE IS RUNNING ORDER RATE. SAFETY,FALL,CONTACT, AND SEIZURE PRECAUTIONS ARE MAINTAINED, CALL LIGHT IS WITH PATIENT. WILL CONTINUE TO MONITOR.
[2020-03-09 01:52] VITALS: BP_SYST 128
--- NOTE | 2020-03-09 02:30 | NUR ---
RN ROUNDS: PATIENT IS IN BED, SLEEPING. NO S/S ACUTE DISTRESS NOTED. SAFETY,FALL,CONTACT, AND SEIZURE PRECAUTIONS MAINTAINED CALL LIGHT IS WITH PATIENT. WILL MONITOR.
[2020-03-09] MEDS: IPRATROPIUM/ALBUTEROL SULFATE 3 ML AMPUL.NEB (DUONEB) INH SCH ×6 (03:41→23:14)
[2020-03-09] MEDS: ACETYLCYSTEINE 20% 4 ML VIAL (RT) INH SCH ×6 (03:41→23:14)
--- NOTE | 2020-03-09 04:18 | NUR ---
RN ROUNDS: PATIENT IS IN THE BED AND STABLE. NO S/S ACUTE DISTRESS NOTED AT THIS TIME. WILL CONTINUE TO MONITOR.
[2020-03-09] MEDS: CEFTOLOZANE IV SCH ×3 (06:24→23:51)
[2020-03-09] MEDS: D5W IV SCH ×3 (06:24→23:51)
[2020-03-09] MEDS: TAZOBACTAM IV SCH ×3 (06:24→23:51)
--- NOTE | 2020-03-09 06:32 | NUR ---
CLOSING NOTE: PATIENT GIVEN SCHEDULED IV MORNING MED. NEW FEEDING FORMULA HUNG. RESIDUAL IS 0. NO S/S ACUTE DISTRESS NOTED. BREATHING IS PRISCA AND UNLABORED ON RA. SAFETY,FALL, AND CONTACT PRECAUTIONS ARE IN PLACE. CALL LIGHT IS WITH PATIENT. ALL NEEDS MET THROUGHOUT THE SHIFT.WILL ENDORSE PATIENT CARE TO DAY SHIFT RN.
[2020-03-09 06:36] LABS: BASOPHILS % (AUTO) 0.4 % (0.0-2.0); EOSINOPHILS # (AUTO) 0.4 K/uL (0.0-0.4); EOSINOPHILS % (AUTO) 5.4 % (0.0-4.0); HEMATOCRIT 26.1 % (36-54); HEMOGLOBIN 8.5 g/dL (14.0-18.0); LYMPHOCYTES # (AUTO) 1.9 K/uL (1.0-5.5); LYMPHOCYTES % (AUTO) 23.3 % (20.5-51.5); MEAN CORPUSCULAR HEMOGLOBIN 28 pg (27-31); MEAN CORPUSCULAR HGB CONC 33 % (32-36); MEAN CORPUSCULAR VOLUME 86 fL (79.0-98.0); MONOCYTES # (AUTO) 0.5 K/uL (0.0-1.0); MONOCYTES % (AUTO) 6.1 % (1.7-9.3); NEUTROPHILS # (AUTO) 5.3 K/uL (1.8-7.7); NEUTROPHILS % (AUTO) 64.8 % (40.0-70.0); PLATELET COUNT (AUTO) 208 K/uL (130-430); RED BLOOD CELL COUNT(AUTO) 3.03 MIL/uL (4.2-6.2); RED CELL DISTRIBUTION WIDTH 15.5 % (9.0-15.0); WHITE BLOOD COUNT (AUTO) 8.2 K/uL (4.8-10.8)
[2020-03-09 06:46] LABS: CALCIUM 8.8 mg/dL (8.4-11.0); CREATININE 1.43 mg/dL (0.55-1.30); POTASSIUM 3.6 mmol/L (3.5-5.1)
[2020-03-09 08:00] VITALS: BP_SYST 135
--- NOTE | 2020-03-09 08:30 | NUR ---
Received patient and report from MST nurse. Side rails x 3 up. Call light with in reach.
[2020-03-09] MEDS: clonazePAM 0.5 MG TABLET GT SCH ×2 (09:03→20:07)
[2020-03-09] MEDS: LevETIRAcetam 500 MG/5 ML UDC ORAL LIQUID GT SCH ×2 (09:03→20:09)
[2020-03-09] MEDS: FINASTERIDE 5 MG TABLET (PROSCAR) GT SCH (09:03)
[2020-03-09] MEDS: QUEtiapine FUMARATE 25 MG TABLET GT SCH (09:03)
[2020-03-09] MEDS: APIXABAN 2.5 MG TABLET GT SCH ×2 (09:04→20:08)
[2020-03-09] MEDS: DIVALPROEX SODIUM 500 MG TABLET( DEPAKOTE) PO SCH ×2 (09:04→20:07)
[2020-03-09] MEDS: DESMOPRESSIN ACETATE 4 MCG/ML AMP IVP SCH (09:05)
[2020-03-09] MEDS: BALSAM PERU/CASTOR OIL 60 GM OINT...G. TP SCH (09:18)
[2020-03-09] MEDS: amLODIPine BESYLATE 10 MG TABLET PO SCH (09:19)
[2020-03-09] MEDS: MUPIROCIN 2% TOPICAL OINTMENT 22 GM NS SCH (09:20)
[2020-03-09 12:19] VITALS: BP_SYST 102
[2020-03-09 16:27] VITALS: BP_SYST 102
--- NOTE | 2020-03-09 19:21 | NUR ---
Endorsed patient and gave report to NOC shift nurse, endorsed to NOC shift nurse to endorse to tomorrow AM nurse brother Sukumar requesting to talk to admitting doctor. Patient in bed with side rails x 3 up. Call light with in reach.
--- NOTE | 2020-03-09 19:35 | NUR ---
OPENING NOTE: RECEIVED REPORT AND ASSUMED CARE. PATIENT IS IN THE BED, CURRENTLY SLEEPING. BREATHING UNLABORED AND EVEN ON RA. PATIENT IS ON FEEDING TUBE, RUNNING AT 65 CC/HR . 0 RESIDUAL AT THIS TIME. GIPSON CATHETER IS DRAINING TO GRAVITY. IVF INFUSING TO AMANDA PICC LINE. DRESSING IS DRY AND CLEAN. NO S/S ACUTE DISTRESS NOTED. SAFETY,FALL,SEIZURE, AND CONTACT PRECAUTIONS ARE IN PLACE. CALL LIGHT IS WITH PATIENT.WILL CONTINUE TO MONITOR PATIENT.
[2020-03-09 20:00] VITALS: BP_SYST 106
[2020-03-09] MEDS: QUEtiapine FUMARATE 100 MG TABLET PO SCH (20:07)
--- NOTE | 2020-03-09 20:10 | NUR ---
MED PASS: PATIENT GIVEN SCHEDULED ME VIA G-TUBE. NO S/S ACUTE DISTRESS NOTED. RESPIRATION IS EVEN AND UNLABORED ON RA. WILL MONITOR PATIENT FOR ANY CHANGES.
[2020-03-09] MEDS: TERAZOSIN HCL 1 MG CAPSULE (HYTRIN) PO SCH (20:13)
--- NOTE | 2020-03-09 22:45 | NUR ---
RN ROUNDS: PATIENT IS SLEEPING. RESPIRATION IS EVEN AND UNLABORED. NO S/S ACUTE DISTRESS NOTED. IVF INFUSING AT 3 CC/HR. FEEDING TUBE IS RUNNING AT 65 CC/HR. PATIENT GIVEN SKIN CARE, WOUND DRESSING CHANGED. SAFETY,FALL,CONTACT, AND SEIZURE PRECAUTIONS ARE MAINTAINED, CALL LIGHT IS WITH PATIENT. WILL CONTINUE TO MONITOR.
[2020-03-10] VITALS: BP_SYST 133
--- NOTE | 2020-03-10 00:30 | NUR ---
RN ROUNDS: PATIENT IS SLEEPING. RESPIRATION IS EVEN AND UNLABORED. NO S/S ACUTE DISTRESS NOTED. SAFETY,FALL,CONTACT, AND SEIZURE PRECAUTIONS ARE MAINTAINED, CALL LIGHT IS WITH PATIENT. WILL CONTINUE TO MONITOR.
--- NOTE | 2020-03-10 02:45 | NUR ---
WOUND CARE/REPOSITIONING: SKIN/WOUND CARE PROVIDED. LARGE WATERY BM NOTED. PATIENT WAS CLEANED AND REPOSITIONED FOR COMFORT.
--- NOTE | 2020-03-10 03:00 | NUR ---
RN ROUNDS: PATIENT IS IN THE BED AND STABLE. NO S/S ACUTE DISTRESS NOTED AT THIS TIME. SAFETY,FALL,ZEIZURE, AND CONTACT PRECAUTIONS ARE IN PLACE. WILL CONTINUE TO MONITOR.
[2020-03-10] MEDS: ACETYLCYSTEINE 20% 4 ML VIAL (RT) INH SCH ×6 (03:23→23:28)
[2020-03-10] MEDS: IPRATROPIUM/ALBUTEROL SULFATE 3 ML AMPUL.NEB (DUONEB) INH SCH ×6 (03:23→23:26)
--- NOTE | 2020-03-10 05:10 | NUR ---
SKIN CARE PROVIDED. WATERY BM NOTED. CLEANED PATIENT AND REPOSITIONED FOR COMFORT.
[2020-03-10] MEDS: CEFTOLOZANE IV SCH ×3 (06:20→21:07)
[2020-03-10] MEDS: D5W IV SCH ×3 (06:20→21:07)
[2020-03-10] MEDS: TAZOBACTAM IV SCH ×3 (06:20→21:07)
--- NOTE | 2020-03-10 06:30 | NUR ---
CLOSING NOTE: PATIENT GIVEN SCHEDULED IV MORNING MED. FEEDING FORMULA RUNNING ORDERED RATE. 0 RESIDUAL. NO S/S ACUTE DISTRESS NOTED. BREATHING IS PRISCA AND UNLABORED ON RA. SAFETY,FALL, AND CONTACT PRECAUTIONS ARE IN PLACE. CALL LIGHT IS WITH PATIENT. ALL NEEDS MET THROUGHOUT THE SHIFT.WILL ENDORSE PATIENT CARE TO DAY SHIFT RN.
[2020-03-10 06:48] LABS: BASOPHILS % (AUTO) 0.5 % (0.0-2.0); EOSINOPHILS # (AUTO) 0.4 K/uL (0.0-0.4); EOSINOPHILS % (AUTO) 4.1 % (0.0-4.0); HEMATOCRIT 24.2 % (36-54); HEMOGLOBIN 8.1 g/dL (14.0-18.0); LYMPHOCYTES # (AUTO) 1.7 K/uL (1.0-5.5); LYMPHOCYTES % (AUTO) 17.4 % (20.5-51.5); MEAN CORPUSCULAR HEMOGLOBIN 29 pg (27-31); MEAN CORPUSCULAR HGB CONC 33 % (32-36); MEAN CORPUSCULAR VOLUME 85 fL (79.0-98.0); MONOCYTES # (AUTO) 0.8 K/uL (0.0-1.0); MONOCYTES % (AUTO) 8.3 % (1.7-9.3); NEUTROPHILS % (AUTO) 69.7 % (40.0-70.0); PLATELET COUNT (AUTO) 242 K/uL (130-430); RED BLOOD CELL COUNT(AUTO) 2.84 MIL/uL (4.2-6.2); RED CELL DISTRIBUTION WIDTH 15.1 % (9.0-15.0)
[2020-03-10 06:51] LABS: CREATININE 1.27 mg/dL (0.55-1.30); POTASSIUM 3.3 mmol/L (3.5-5.1)
[2020-03-10] MEDS ORDERED: POTASSIUM CHLORIDE 20 MEQ/PKT PACKET GT ONE (08:00)
[2020-03-10 08:01] VITALS: BP_SYST 127
--- NOTE | 2020-03-10 08:01 | NUR ---
INITIAL ROUNDS Received pt with eyes closed, opens to light touch, no s/s resp distress, no s/s pain or discomfort. Pt on contact isolation precautions for MRSA of the nares and MDRO/LAWN CARE WORKER of the sputum. Pt on air mattress, pt repositioned with pillow support and heels offloaded for skin care and comfort, noted dressing to sacral area clean, dry and intact. HOB elevated for aspiration precautions. Glucerna 1.2 infusing well via G-tube at ordered rate with no residual noted. Rice draining to gravity. Seizure precautions in place. Side rails up x3, bed alarm on and room close to nursing station for safety.
[2020-03-10] MEDS: FINASTERIDE 5 MG TABLET (PROSCAR) GT SCH (11:24)
[2020-03-10] MEDS: amLODIPine BESYLATE 10 MG TABLET PO SCH (11:24)
[2020-03-10] MEDS: clonazePAM 0.5 MG TABLET GT SCH ×2 (11:24→21:03)
[2020-03-10] MEDS: DIVALPROEX SODIUM 500 MG TABLET( DEPAKOTE) PO SCH ×2 (11:24→20:59)
[2020-03-10] MEDS: QUEtiapine FUMARATE 25 MG TABLET GT SCH (11:24)
[2020-03-10] MEDS: APIXABAN 2.5 MG TABLET GT SCH ×2 (11:28→21:05)
[2020-03-10] MEDS: LevETIRAcetam 500 MG/5 ML UDC ORAL LIQUID GT SCH ×2 (11:30→21:04)
[2020-03-10] MEDS: DESMOPRESSIN ACETATE 4 MCG/ML AMP IVP SCH (11:30)
--- NOTE | 2020-03-10 11:35 | NUR ---
CHARLENE/ Pt resting quietly in bed with no s/s resp distress, no s/s pain or discomfort. Pt seen by Dr. Wadsworth earlier-pt given Potassium as ordered by Dr. Wadsworth. Dr. Zhao here and saw pt, awaiting new orders. All precautions remain in place.
[2020-03-10 12:01] VITALS: BP_SYST 122
--- NOTE | 2020-03-10 14:30 | NUR ---
Nutrition F/U RD reviewed pt's current EMR record including diet Hx, physician notes, nursing notes, pertinent labs/meds/procedures, care trends, and care activity. Admission Dx: Respiratory Failure, PNA, Sepsis PMH: Parkinson's, CKD, Chronic Respiratory Failure, HTN, Diabetes Insipidus, PEG placement, dementia, Bipolar Current Diet Order/Nutrition Support: Glucerna 1.2 at 65 ml/hr, Prosource BID, Free Water Flush: 250 ml q6h via GT Subjective Info: RD met w/ pt's primary RN in ICU nursing station. Pt is under isolation precautions and RD bedside visit was deferred to conserve PPE. RN reported that pt has been tolerating EN well, no residuals this morning. RN also noted that EN is infusing as ordered. RD discussed Dr. Del Castillo's plan for swallow eval, not ordered yet, RN stated that she will review MD notes. Pertinent Medications: seroquel, depakote, eliquis, colace Pertinent Labs: 03/10 Na 143, K 3.3L, BG 125H, BUN 39H, Cre 1.27 Skin Integrity Comment: Tyler scale 10. Per Electrical Superintendent note 03/03: unstageable pressure ulcer on Sacral-coccygeal; Current % PO N/A, on EN Estimated Energy Expenditure (kcals/day) 0903-1879 kcal/day (25-30 kcal/kg ABW for critical illness, BMI <30) Estimated Protein Required (g/day) 101-168 g pro/day (1.2-2.0 g pro/kg ABW for critical illness, BMI < 30) Estimated Fluid Required (l/day) 6262-4538 ml/day (1 ml/kcal/day for maintenance) Problem/Etiology/Signs/Symptoms Inadequate protein-energy intake r/t increased nutritional demands for healing AEB unstageable pressure injury and current EN not meeting needs. *met Altered nutrition related labs r/t endocrine dysfunction AEB elevated BG. (*new) Expected Outcomes/Goals -Will monitor tolerance of nutrition support w/ goal of pt meeting at least 75% of estimated nutritional needs, labs, trending WNL, normal GI function, skin integrity, and weight maintenance. Dietitian Recommendations * Recommend continuing Glucerna 1.2 65 ml/hr (goal rate), Free Water Flush: 250 ml q6h via GT Provides: 1992 kcal/day, 124 gm protein/day, and 2256 ml free water/day Meets: 95% of lower end of estimated caloric needs and 74% of upper end of estimated protein needs Follow Up High Risk: F/U in 2-3 days Addendum: 03/10/20 at [address] Additional Dietitian Recommendation: *Add En BID for wound healing. Modular will provide additional 160 kcal and 5gm protein daily. KAYLAH MERA
--- NOTE | 2020-03-10 14:35 | NUR ---
TUBE FEEDING CHANGED New bottle of Glucerna 1.2 hung with new tubing, Prosource and Ne given as ordered.
[2020-03-10] MEDS: BALSAM PERU/CASTOR OIL 60 GM OINT...G. TP SCH (14:50)
[2020-03-10 18:07] VITALS: BP_SYST 109
--- NOTE | 2020-03-10 19:15 | NUR ---
CLOSING NOTE Pt resting quietly in bed with no s/s resp distress, no s/s pain or discomfort. Contact isolation precautions maintained throughout shift. All precautions remain in place.
--- NOTE | 2020-03-10 19:30 | NUR ---
INITIAL NOTES: RECEIVED REPORT FROM ANDERS RN. PATIENT IS IN BED, RESTING. NO ACUTE DISTRESS. EVEN, NONLABORED BREATHING ON ROOM AIR. AMANDA PICC LINE IS C/D/I. GTUBE IS RECEIVING TUBEFEEDING ORDERED. GIPSON IS DRAINING CLEAR, YELLOW URINE TO GRAVITY. BED IS LOCKED AT LOWEST POSITION. SIDE RAILS UP X3. BED ALARM ON. CALL LIGHT IS WITH PATIENT. CONTACT, SAFETY, AND FALL PRECAUTIONS IN PLACE. WILL CONTINUE WITH PLAN OF CARE.
[2020-03-10 20:00] VITALS: BP_SYST 108
[2020-03-10] MEDS: TERAZOSIN HCL 1 MG CAPSULE (HYTRIN) PO SCH (21:03)
[2020-03-10] MEDS: QUEtiapine FUMARATE 100 MG TABLET PO SCH (21:04)
--- NOTE | 2020-03-11 | NUR ---
PICC LINE DRESSING CHANGE: PICC LINE DRESSING CHANGED AT THIS TIME. PATIENT TOLERATED WELL NEXT DRESSING CHANGE DUE 03/18/2020
[2020-03-11 00:12] VITALS: BP_SYST 113
[2020-03-11] MEDS: IPRATROPIUM/ALBUTEROL SULFATE 3 ML AMPUL.NEB (DUONEB) INH SCH ×6 (03:58→23:44)
[2020-03-11] MEDS: ACETYLCYSTEINE 20% 4 ML VIAL (RT) INH SCH ×6 (03:58→23:44)
[2020-03-11] MEDS: D5W IV SCH ×3 (06:22→21:19)
[2020-03-11] MEDS: CEFTOLOZANE IV SCH ×3 (06:22→21:19)
[2020-03-11] MEDS: TAZOBACTAM IV SCH ×3 (06:22→21:19)
[2020-03-11 06:25] LABS: BASOPHILS # (AUTO) 0.1 K/uL (0.0-0.2); BASOPHILS % (AUTO) 0.5 % (0.0-2.0); EOSINOPHILS # (AUTO) 0.4 K/uL (0.0-0.4); HEMATOCRIT 25.6 % (36-54); HEMOGLOBIN 8.2 g/dL (14.0-18.0); LYMPHOCYTES # (AUTO) 2.4 K/uL (1.0-5.5); LYMPHOCYTES % (AUTO) 22.4 % (20.5-51.5); MEAN CORPUSCULAR HEMOGLOBIN 28 pg (27-31); MEAN CORPUSCULAR HGB CONC 32 % (32-36); MEAN CORPUSCULAR VOLUME 87 fL (79.0-98.0); MONOCYTES # (AUTO) 0.9 K/uL (0.0-1.0); MONOCYTES % (AUTO) 8.8 % (1.7-9.3); NEUTROPHILS # (AUTO) 6.8 K/uL (1.8-7.7); NEUTROPHILS % (AUTO) 64.3 % (40.0-70.0); PLATELET COUNT (AUTO) 279 K/uL (130-430); RED BLOOD CELL COUNT(AUTO) 2.94 MIL/uL (4.2-6.2); RED CELL DISTRIBUTION WIDTH 15.2 % (9.0-15.0); WHITE BLOOD COUNT (AUTO) 10.6 K/uL (4.8-10.8)
[2020-03-11 06:35] LABS: CALCIUM 9.6 mg/dL (8.4-11.0); CREATININE 1.37 mg/dL (0.55-1.30); POTASSIUM 3.8 mmol/L (3.5-5.1)
--- NOTE | 2020-03-11 06:46 | NUR ---
CLOSING NOTES: PATIENT IS IN BED, RESTING. NO ACUTE DISTRESS. EVEN, NONLABORED BREATHING ON ROOM AIR. AMANDA PICC LINE IS C/D/I. GTUBE IS RECEIVING TUBEFEEDING ORDERED. GIPSON IS DRAINING CLEAR, YELLOW URINE TO GRAVITY. ALL NEEDS MET. BED IS LOCKED AT LOWEST POSITION. SIDE RAILS UP X3. BED ALARM ON. CALL LIGHT IS WITH PATIENT. CONTACT, SAFETY, AND FALL PRECAUTIONS IN PLACE. WILL ENDORSE CARE TO DAYSHIFT RN.
--- NOTE | 2020-03-11 07:30 | NUR ---
OPENING NOTES: RECEIVED PATIENT FROM COMMERCIAL HELICOPTER PILOT NURSE. PATIENT IS AWAKE WITH HIS EYES OPEN AND NONVERBAL. PATIENT IS TOLERATING OXYGEN ON ROOM AIR WITH NO SIGNS OF DISTRESS OR SHORTNESS OF BREATH NOTED. PICC LINE INTACT WITH CLEAN, DRY DRESSING WITH NO SIGNS OF INFILTRATION NOTED. G-TUBE INTACT AND RUNNING FEEDING ORDERED. GIPSON CATHETER INTACT AND DRAINING BY GRAVITY. PATIENT IN STABLE CONDITION. SAFETY, FALL, ASPIRATION, AND CONTACT PRECAUTIONS ARE IN PLACE. BED LOCKED IN LOWEST POSITION WITH CALL LIGHT IN REACH. WILL CONTINUE TO MONITOR PATIENT FOR ANY CHANGES.
[2020-03-11 08:17] VITALS: BP_SYST 112
[2020-03-11] MEDS: APIXABAN 2.5 MG TABLET GT SCH ×2 (08:50→21:16)
[2020-03-11] MEDS: LevETIRAcetam 500 MG/5 ML UDC ORAL LIQUID GT SCH ×2 (08:50→21:17)
[2020-03-11] MEDS: clonazePAM 0.5 MG TABLET GT SCH ×2 (08:51→21:15)
[2020-03-11] MEDS: FINASTERIDE 5 MG TABLET (PROSCAR) GT SCH (08:51)
[2020-03-11] MEDS: amLODIPine BESYLATE 10 MG TABLET PO SCH (08:51)
[2020-03-11] MEDS: DIVALPROEX SODIUM 500 MG TABLET( DEPAKOTE) PO SCH ×2 (08:51→21:17)
[2020-03-11] MEDS: QUEtiapine FUMARATE 25 MG TABLET GT SCH (08:52)
[2020-03-11] MEDS: BALSAM PERU/CASTOR OIL 60 GM OINT...G. TP SCH (08:52)
[2020-03-11] MEDS: DESMOPRESSIN ACETATE 4 MCG/ML AMP IVP SCH ×2 (09:09→21:15)
--- NOTE | 2020-03-11 10:28 | NUR ---
RN ROUNDS: PATIENT IS ASLEEP LAYING DOWN IN BED. PATIENT IS TOLERATING OXYGEN ON ROOM AIR WITH NO SIGNS OF DISTRESS OR SHORTNESS OF BREATH NOTED. PATIENT IN STABLE CONDITION. WILL CONTINUE TO MONITOR PATIENT FOR ANY CHANGES.
--- NOTE | 2020-03-11 12:40 | NUR ---
WOUND RE-EVALUATION: Patient received in a [place] Bed with an KRYSTA mattress with low air loss therapy, awake, alert, nonverbal, nods to questions. Patient is unable to turn in bed independently. Tyler Score is an 10. Past Medical History: Parkinson's Disease, Chronic Kidney Disease, Chronic Respiratory Failure, Hypertension, Diabetes Insipidus, Dementia, Bipolar, PEG placement. Microbiology: Blood culture results x3 negative. MRSA screen results positive. Urine culture results negative. Stool OB results negative. Endotracheal Sputum Culture positive for Pseudomonas Aeruginosa (CANVAS SHRINKER, MDRO). Intrinsic factors that delay wound healing: Chronic Kidney Disease, Chronic Respiratory Failure, Diabetes Insipidus, Hypoalbuminemia. Extrinsic factors that delay wound healing: Immobility. Wound Assessment: 1. Sacral-Coccygeal area: Unstageable pressure ulcer, present on admission. Wound bed has 15% pink tissue, 80% yellow slough, 5% dark discolored tissue. No odor, no drainage. Periwound intact. Surrounding tissue has scar tissue and dark discolored tissue. Wound measures 6.0 cm x 2.7 cm. Recommend continue: Cleanse wound with normal saline. Apply Calmoseptine cream to jesus-wound. Apply Venelex ointment to wound bed. Cover with Sacral foam dressing. Perform wound care daily, and as needed for dressing soiling or dislodgement. Also recommend: Reposition patient side to side only every 2 hours with pillow support and off-load pressure areas with pillows for pressure re-distribution. Offload, elevate and float bilateral heels with one pillow lengthwise under each extremity at all times. Perform skin care and monitor skin integrity Q shift. Use Calmoseptine cream on buttocks and other moisture susceptible areas QID and as needed for soiling. Maintain patient on a low air-loss mattress.
--- NOTE | 2020-03-11 12:45 | NUR ---
RN ROUNDS: PATIENT IS AWAKE LAYING DOWN IN BED. PATIENT IS TOLERATING OXYGEN ON ROOM AIR WITH NO SIGNS OF DISTRESS OR SHORTNESS OF BREATH NOTED. PICC LINE INTACT WITH CLEAN, DRY DRESSING AND RUNNING FLUIDS ORDERED. WOUND CARE DONE AT THIS TIME. PATIENT TOLERATED IT WELL. PATIENT CLEANED, CHANGED AND REPOSITIONED. PATIENT IN STABLE CONDITION. WILL CONTINUE TO MONITOR PATIENT FOR ANY CHANGES.
--- NOTE | 2020-03-11 14:28 | NUR ---
RN ROUNDS: PATIENT IS ASLEEP LAYING DOWN IN BED. PATIENT TOLERATED OXYGEN NO SIGNS OF DISTRESS NOTED. PICC LINE INTACT AND RUNNING IV ANTIBIOTICS ORDERED. GIPSON INTACT AND DRAINING BY GRAVITY. PATIENT IS IN STABLE CONDITION. WILL CONTINUE TO MONITOR FOR ANY CHANGES.
--- NOTE | 2020-03-11 16:31 | NUR ---
RN ROUNDS: PATIENT ASLEEP LAYING DOWN IN BED. AWAKE FOR VERBAL STIMULI. PATIENT TOLERATED OXYGEN ON ROOM AIR. NO SIGNS OF DISTRESS NOTED. PATIENT REPOSITIONED AND TOLERATED IT WELL. GIPSON INTACT. G-TUBE INTACT. PATIENT IN STABLE CONDITION. WILL CONTINUE TO MONITOR FOR ANY CHANGES.
[2020-03-11 16:35] VITALS: BP_SYST 154
--- NOTE | 2020-03-11 18:43 | NUR ---
CLOSING NOTES: PATIENT IS ASLEEP LAYING DOWN IN BED. PATIENT IS TOLERATING OXYGEN ON ROOM AIR WITH NO SIGNS OF DISTRESS OR SHORTNESS OF BREATH NOTED. PICC LINE INTACT WITH CLEAN, DRY DRESSING WITH NO SIGNS OF INFILTRATION NOTED. G-TUBE INTACT AND RUNNING FEEDING ORDERED. GIPSON CATHETER INTACT AND DRAINING BY GRAVITY. PATIENT IN STABLE CONDITION. SAFETY, FALL, ASPIRATION, AND CONTACT PRECAUTIONS REMAINED IN PLACE THROUGHOUT THE SHIFT. BED LOCKED IN LOWEST POSITION WITH CALL LIGHT IN REACH. WILL ENDORSE PATIENT CARE TO ONCOMING BRANCH ASSOCIATE NURSE.
--- NOTE | 2020-03-11 19:30 | NUR ---
INITIAL NOTES: RECEIVED REPORT FROM ANDERS RN. PATIENT IS IN BED, RESTING. NO ACUTE DISTRESS. EVEN, NONLABORED BREATHING ON ROOM AIR. AMANDA PICC LINE IS C/D/I. GTUBE IS RECEIVING TUBEFEEDING ORDERED. GIPSON IS DRAINING CLEAR, YELLOW URINE TO GRAVITY. BED IS LOCKED AT LOWEST POSITION. SIDE RAILS UP X3. BED ALARM ON. CALL LIGHT IS WITH PATIENT. CONTACT, SEIZURE, SAFETY, AND FALL PRECAUTIONS IN PLACE. WILL CONTINUE WITH PLAN OF CARE.
[2020-03-11 20:00] VITALS: BP_SYST 132
[2020-03-11] MEDS: TERAZOSIN HCL 1 MG CAPSULE (HYTRIN) PO SCH (21:15)
[2020-03-11] MEDS: QUEtiapine FUMARATE 100 MG TABLET PO SCH (21:16)
--- NOTE | 2020-03-11 22:00 | NUR ---
ROUNDS: PATIENT IS SLEEPING IN BED. NO SIGNS OF ACUTE DISTRESS. BREATHING IS EVEN AND UNLABORED. CALL LIGHT IS WITH PATIENT. CONTACT, SEIZURE, SAFETY, AND FALL PRECAUTIONS IN PLACE. WILL CONTINUE MONITORING.
--- NOTE | 2020-03-12 00:05 | NUR ---
ROUNDS: PATIENT IS SLEEPING IN BED. NO S/S OF ACUTE DISTRESS. EVEN AND UNLABORED RESPIRATIONS. CALL LIGHT IS WITH PATIENT. CONTACT, SEIZURE, SAFETY, AND FALL PRECAUTIONS IN PLACE. WILL CONTINUE TO MONITOR.
[2020-03-12 00:40] VITALS: BP_SYST 125
[2020-03-12] MEDS: ACETAMINOPHEN 500 MG TABLET PO PRN (01:07)
--- NOTE | 2020-03-12 01:07 | NUR ---
PAIN: PATIENT DISPLAYED MILD GENERALIZED PAIN PER FLACC SCALE. TYLENOL 500MG PO INDICATION. EDUCATE PATIENT ON INDICATIONS AND SIDE EFFECTS OF MEDICATION. PATIENT IS NONVERBAL AND UNABLE TO VERBALIZE UNDERSTANDING. MEDICATION ADMINISTERED PER MD ORDER. PATIENT TOLERATED WELL. WILL CONTINUE TO MONITOR AND REASSESS.
--- NOTE | 2020-03-12 03:10 | NUR ---
ROUNDS: PATIENT IS SLEEPING IN BED. NO S/S OF ACUTE DISTRESS. BREATHING IS EVEN AND NONLABORED. CALL LIGHT IS WITH PATIENT. CONTACT, SEIZURE, SAFETY, AND FALL PRECAUTIONS IN PLACE. WILL CONTINUE MONITORING.
[2020-03-12] MEDS: ACETYLCYSTEINE 20% 4 ML VIAL (RT) INH SCH ×4 (03:31→15:00)
[2020-03-12] MEDS: IPRATROPIUM/ALBUTEROL SULFATE 3 ML AMPUL.NEB (DUONEB) INH SCH ×4 (03:31→15:22)
--- NOTE | 2020-03-12 04:20 | NUR ---
ROUNDS: PATIENT IS IN BED RESTING. NO SIGNS OF OF ACUTE DISTRESS. EVEN AND UNLABORED BREATHING. CALL LIGHT IS WITH PATIENT. CONTACT, SEIZURE, SAFETY, AND FALL PRECAUTIONS IN PLACE. WILL CONTINUE TO MONITOR.
[2020-03-12] MEDS: TAZOBACTAM IV SCH ×2 (05:05→13:57)
[2020-03-12] MEDS: CEFTOLOZANE IV SCH ×2 (05:05→13:57)
[2020-03-12] MEDS: D5W IV SCH ×2 (05:05→13:57)
[2020-03-12 06:23] LABS: BASOPHILS # (AUTO) 0.1 K/uL (0.0-0.2); BASOPHILS % (AUTO) 0.5 % (0.0-2.0); EOSINOPHILS # (AUTO) 0.5 K/uL (0.0-0.4); HEMOGLOBIN 7.8 g/dL (14.0-18.0); LYMPHOCYTES # (AUTO) 2.2 K/uL (1.0-5.5); MEAN CORPUSCULAR HEMOGLOBIN 28 pg (27-31); MEAN CORPUSCULAR HGB CONC 32 % (32-36); MEAN CORPUSCULAR VOLUME 87 fL (79.0-98.0); MONOCYTES # (AUTO) 0.8 K/uL (0.0-1.0); MONOCYTES % (AUTO) 8.7 % (1.7-9.3); NEUTROPHILS # (AUTO) 5.9 K/uL (1.8-7.7); NEUTROPHILS % (AUTO) 62.8 % (40.0-70.0); PLATELET COUNT (AUTO) 267 K/uL (130-430); RED BLOOD CELL COUNT(AUTO) 2.76 MIL/uL (4.2-6.2); RED CELL DISTRIBUTION WIDTH 15.6 % (9.0-15.0); WHITE BLOOD COUNT (AUTO) 9.4 K/uL (4.8-10.8)
[2020-03-12 06:42] LABS: CALCIUM 9.3 mg/dL (8.4-11.0); CREATININE 1.34 mg/dL (0.55-1.30); POTASSIUM 3.9 mmol/L (3.5-5.1)
--- NOTE | 2020-03-12 06:59 | NUR ---
CLOSING NOTES: PATIENT IS IN BED, RESTING. NO ACUTE DISTRESS. EVEN, NONLABORED BREATHING ON ROOM AIR. AMANDA PICC LINE IS C/D/I. GTUBE IS RECEIVING TUBEFEEDING ORDERED. GIPSON IS DRAINING CLEAR, YELLOW URINE TO GRAVITY. ALL NEEDS MET. BED IS LOCKED AT LOWEST POSITION. SIDE RAILS UP X3. BED ALARM ON. CALL LIGHT IS WITH PATIENT. CONTACT, SEIZURE, SAFETY, AND FALL PRECAUTIONS IN PLACE. WILL ENDORSE CARE TO DAYSHIFT RN.
[2020-03-12] MEDS ORDERED: D5W 1,000 ML IV SCH (07:15)
--- NOTE | 2020-03-12 07:45 | NUR ---
OPENING NOTES: RECEIVED PATIENT FROM DIRECTOR OF RESPIRATORY THERAPY NURSE. PATIENT IS AWAKE BUT NON-VERBAL LAYING IN BED. PATIENT DENIES ANY PAIN AT THE MOMENT. PATIENT IS TOLERATING OXYGEN ON ROOM AIR. NO SIGNS OF DISTRESS NOTED. G-TUBE INTACT AND RUNNING FEEDING ORDERED. GIPSON CATHETER INTACT AND DRAINING BY GRAVITY. PICC LINE INTACT WITH CLEAN DRY DRESSING AND NO SIGNS OF INFILTRATION NOTED. PATIENT IN STABLE CONDITION. SAFETY, FALL, ASPIRATION, SEIZURE, AND CONTACT PRECAUTIONS ARE IN PLACE. BED LOCK IN LOWEST POSITION WITH CALL LIGHT IN REACH. WILL CONTINUE TO MONITOR PATIENT FOR ANY CHANGES.
[2020-03-12 07:55] VITALS: BP_SYST 125
[2020-03-12 08:12] VITALS: BP_SYST 108
[2020-03-12] MEDS: FINASTERIDE 5 MG TABLET (PROSCAR) GT SCH (08:30)
[2020-03-12] MEDS: clonazePAM 0.5 MG TABLET GT SCH (08:30)
[2020-03-12] MEDS: LevETIRAcetam 500 MG/5 ML UDC ORAL LIQUID GT SCH (08:30)
[2020-03-12] MEDS: DIVALPROEX SODIUM 500 MG TABLET( DEPAKOTE) PO SCH (08:30)
[2020-03-12] MEDS: amLODIPine BESYLATE 10 MG TABLET PO SCH (08:32)
[2020-03-12] MEDS: APIXABAN 2.5 MG TABLET GT SCH (08:33)
[2020-03-12] MEDS: DESMOPRESSIN ACETATE 4 MCG/ML AMP IVP SCH (08:33)
[2020-03-12] MEDS: BALSAM PERU/CASTOR OIL 60 GM OINT...G. TP SCH (08:34)
[2020-03-12] MEDS: QUEtiapine FUMARATE 25 MG TABLET GT SCH (08:38)
--- NOTE | 2020-03-12 10:05 | NUR ---
RN ROUNDS: PATIENT IS AWAKE AND NON-VERBAL LAYING DOWN IN BED. PATIENT DENIES ANY PAIN AT THE MOMENT. PATIENT IS TOLERATING OXYGEN ON ROOM AIR. NO SIGNS OF DISTRESS NOTED. WOUND CARE DONE AND PICTURES TAKEN. PATIENT CLEANED, CHANGED, AND REPOSITIONED. PICC LINE INTACT AND RUNNING FLUIDS ORDERED. GTUBE INTACT AND RUNNING FEEDING. PATIENT IN STABLE CONDITION. WILL CONTINUE TO MONITOR PATIENT FOR ANY CHANGES.
--- NOTE | 2020-03-12 10:30 | NUR ---
Discharge Planning: TONEP faxed patient referral to [facility] ([phone]) TONEP to follow up Addendum: 03/12/20 at 1406 by Yasmeen Caban DP DCP followed up with referral to [facility] ([phone]) Per Judy pt will go to [id number], ZACHARIAH arranged transportation on [facility] Call with [facility] ([phone]) [facility]. TONEP made nurse and CM aware and patient packet to nurse station.
[2020-03-12 11:04] VITALS: BP_SYST 119
[2020-03-12 12:13] VITALS: BP_SYST 115
--- NOTE | 2020-03-12 12:30 | NUR ---
RN ROUNDS: PATIENT IS ASLEEP LAYING DOWN IN BED. PATIENT IS ON ROOM AIR AND TOLERATING WELL. PICC LINE INTACT RUNNING FLUIDS ORDERED. G-TUBE INTACT AND RUNNING FEEDING ORDERED.PATIENT IS IN STABLE CONDITION. WILL CONTINUE TO MONITOR FOR ANY CHANGES.
--- NOTE | 2020-03-12 14:13 | NUR ---
RN ROUNDS: PATIENT IS ASLEEP LAYING DOWN IN BED. AWAKES WITH VERBAL STIMULI. DENIES ANY PAIN AT THE MOMENT. TOLERATING OXYGEN ON ROOM AIR. PICC LINE INTACT AND RUNNING FLUIDS ORDERED. GIPSON INTACT AND DRAINING BY GRAVITY. PATIENT IS ON STABLE CONDITION. WILL CONTINUE TO MONITOR PATIENT FOR ANY CHANGES.
[2020-03-12] MEDS ORDERED: CEFT1.5V IV (14:38)
[2020-03-12 16:15] VITALS: BP_SYST 119
--- NOTE | 2020-03-12 16:50 | NUR ---
RN ROUNDS: PATIENT IS AWAKE AND LAYING DOWN IN BED. RESPONSIVE TO VERBAL STIMULI. DENIES ANY PAIN AT THE MOMENT. TOLERATING OXYGEN ON ROOM AIR. PICC LINE INTACT AND RUNNING FLUIDS ORDERED. GIPSON INTACT AND DRAINING BY GRAVITY. G-TUBE INTACT AND RUNNING FEEDING TOLERATING WELL. PATIENT IS IN STABLE CONDITION. WILL CONTINUE TO MONITOR PATIENT FOR ANY CHANGES.
--- NOTE | 2020-03-12 18:45 | NUR ---
PT TRANSFERRED: Report given to Carlene at [facility]. Transfer packet with Transfer Orders and Medication Reconciliation form given to EMT with report. Exitcare provided. [facility] ID band removed, replaced with ID band with pt's name and . PICC line intact with clean, dry dressing. Rice intact and draining by gravity. G-tube intact with clean, dry dressing. All belongings sent with patient. Patient left floor via gurney escorted by EMT in no distress.
== END 2020-03-12 18:45 | DRG 870 ==
LOC: SED 19:31 → SIC 21:18 → SMU 03-08 18:16 → STU 03-08 19:00
PROVIDERS: ADMIT Family Medicine; ATTEND Family Medicine
PROC: 5A1955Z Respiratory Ventilation, Greater than 96 Consecutive Hours (ICD-10-PCS; principal; 2020-03-02)
PROC: 0BH17EZ Insertion of Endotracheal Airway into Trachea, Via Natural or Artificial Opening (ICD-10-PCS; 2020-03-02)
PROC: 02HV33Z Insertion of Infusion Device into Superior Vena Cava, Percutaneous Approach (ICD-10-PCS; 2020-03-03)
PROC: B548ZZA Ultrasonography of Superior Vena Cava, Guidance (ICD-10-PCS; 2020-03-03)
PROC: 5A09357 Assistance with Respiratory Ventilation, Less than 24 Consecutive Hours, Continuous Positive Airway Pressure (ICD-10-PCS; 2020-03-07)
DX: A41.9 Sepsis, unspecified organism (principal); J69.0 Pneumonitis due to inhalation of food and vomit; J96.20 Acute and chronic respiratory failure, unspecified whether with hypoxia or hypercapnia; N17.0 Acute kidney failure with tubular necrosis; E43 Unspecified severe protein-calorie malnutrition; G82.50 Quadriplegia, unspecified; N18.6 End stage renal disease; J15.1 Pneumonia due to Pseudomonas; E66.2 Morbid (severe) obesity with alveolar hypoventilation; E87.1 Hypo-osmolality and hyponatremia; I12.0 Hypertensive chronic kidney disease with stage 5 chronic kidney disease or end stage renal disease; J44.0 Chronic obstructive pulmonary disease with (acute) lower respiratory infection; E87.0 Hyperosmolality and hypernatremia; D63.8 Anemia in other chronic diseases classified elsewhere; E11.22 Type 2 diabetes mellitus with diabetic chronic kidney disease; E86.0 Dehydration; E86.1 Hypovolemia; E87.6 Hypokalemia; F02.80 Dementia in other diseases classified elsewhere, unspecified severity, without behavioral disturbance, psychotic disturbance, mood disturbance, and anxiety; G20 Parkinson's disease; R13.10 Dysphagia, unspecified; Y83.9 Surgical procedure, unspecified as the cause of abnormal reaction of the patient, or of later complication, without mention of misadventure at the time of the procedure; Y84.8 Other medical procedures as the cause of abnormal reaction of the patient, or of later complication, without mention of misadventure at the time of the procedure; Z20.828 Contact with and (suspected) exposure to other viral communicable diseases; Z78.9 Other specified health status; Z86.19 Personal history of other infectious and parasitic diseases; Z93.1 Gastrostomy status; Y92.89 Other specified places as the place of occurrence of the external cause; Z68.25 Body mass index [BMI] 25.0-25.9, adult
CPT/HCPCS: 36415; 36600; 71045; 73060-TC; 80048; 80053; 80061; 80164-TC; 81000-TC; 82150-TC; 82272; 82550-TC; 82728; 82803-TC; 83036; 83605; 83615-TC; 83690-TC; 83735-TC; 83880; 84100-TC; 84439; 84443-TC; 84484; 85007; 85025; 85027; 85379; 85384-TC; 85610-TC; 85730-TC; 86140; 87040-TC; 87070-TC; 87081; 87086; 87205-TC; 93005; 94002; 94003; 94640; 94660; 94760; 96365; 96367; 97110-GP; 97163; 97530-GP; 99291; C1751; G0378; J0456; J0695; J0878; J2185; J2543; J2597; J2704; J3370; J7030; J7040; J7060; J7608; U0003